=== PATIENT | female | born 1985 | race Caucasian/White ===

== ENCOUNTER → 2016-11-14 | Outpatient (CLI) | payer OTHER, BC ==
[2016-11-14 16:17] LABS: HIV ANTIBODY NEGATIVE (N); HIV-1 P24 ANTIGEN NEGATIVE (N)
== END ==
LOC: MOB LAB 14:36
PROVIDERS: ATTEND Physician Assistant Medical
DX: Z11.3 Encounter for screening for infections with a predominantly sexual mode of transmission (principal)
CPT/HCPCS: 36415; 86703; 86780; 86803; 87491; 87591

== ENCOUNTER → 2017-03-20 | Outpatient (CLI) | payer BC, OTHER ==
[2017-03-20 11:02] LABS: HEMATOCRIT 38.4 % (37.0-47.0); HEMOGLOBIN 12.7 g/dL (12.0-16.0); MEAN CORPUSCULAR VOLUME 87.7 FL (81-99); RED BLOOD COUNT 4.38 10^6/uL (4.20-5.40)
[2017-03-20 11:03] LABS: BASOPHILS % (AUTO) 1.5 % (0-1); EOSINOPHILS % (AUTO) 4.1 % (0-8); LYMPHOCYTES # (AUTO) 1.48 10*3/uL; MEAN CORPUSCULAR HGB CONC 33.1 g/dL (33-37); MEAN PLATELET VOLUME 9.7 FL (7.4-12.2); MONOCYTES # (AUTO) 0.84 10*3/UL (0.3-0.8); MONOCYTES % (AUTO) 9.8 % (5-15); NEUTROPHILS # (AUTO) 5.76 10*3/UL; NEUTROPHILS % (AUTO) 67.2 % (50-80)
[2017-03-20 11:04] LABS: BASOPHILS # (AUTO) 0.13 10*3/UL; EOSINOPHILS # (AUTO) 0.35 10*3/UL; PLATELET MORPHOLOGY COMMENT NORMAL MORPHOLOGY (NORM); RBC MORPHOLOGY COMMENT NORMAL MORPHOLOGY (NORM); WBC MORPHOLOGY COMMENT NORMAL MORPHOLOGY (NORM)
[2017-03-20 11:08] LABS: BLOOD UREA NITROGEN 9 mg/dL (7-22); BUN/CREATININE RATIO 12.85 (6-20); CALCIUM 8.8 mg/dL (8.7-10.7); EST GLOMERULAR FILTRATION > 60 (>60 ml/min/1.73m(2)); SERUM ALBUMIN 3.7 g/dL (3.5-4.8)
[2017-03-22 13:54] LABS: TTG AB IGA <1.2 U/mL (())
[2017-03-22 16:43] LABS: PARASITIC EXAM FIN 1533 (())
[2017-03-24 22:06] LABS: IGA, SERUM 279 mg/dL (61 - 356)
== END ==
LOC: MOB LAB 10:02
PROVIDERS: ATTEND Physician Assistant
DX: R19.7 Diarrhea, unspecified (principal); J02.9 Acute pharyngitis, unspecified
CPT/HCPCS: 36415; 80053; 81376; 82272; 82710; 82784; 83516; 83630; 85025; 87046; 87177; 87205; 87209; 87328; 87329; 87338; 87449; 87493

== ENCOUNTER 2017-04-07 08:04 | Day surgery (SDC) | payer BC, OTHER ==
[~2017-04-07 08:04] MED LIST: LIDOCAINE W/ SODIUM BICARB 0.5 ML SYR ONE; Lactated Ringers 1,000 ML PRIMARY IV ONE; fentaNYL Inj 100 MCG/2 ML VIAL ONE
[2017-04-07 08:34] LABS: URINE SPECIFIC GRAVITY - MAN 1.016
--- NOTE | 2017-04-07 10:12 | GEN.OPNOTE ---
Colonoscopy Procedure Note Surgery Date: 04/07/17 Preoperative Diagnosis: Diarrhea. Bright red blood per rectum. Postoperative Diagnosis: Diarrhea. Bright red blood per rectum. Anterior anal fissure. Colitis. Procedure: Colonoscopy with multiple biopsies. Anoscopy. Surgeon: Hermann Richardson MD Anesthesia Provider: Denzel Smith CRNA Anesthesia Type: MAC Indications: Patient with a 3 month history of diarrhea and bright red blood per rectum. She is taken for endoscopy. Findings: Prep : [Very good] Cecum : [Normal] Ascending : [Normal] Transverse : [Colitis with erythema and friability] Sigmoid : [Colitis with erythema and friability] Rectum : [Mild erythema and friability] Digital Rectal Exam : [Small anterior fissure] Terminal ileum:[Visually normal] Anoscopy:[Small anterior anal fissure] A lubricated flexible colonoscope was inserted and passed to the blind end of the cecum. The terminal ileum was intubated and was visually normal. Biopsies were taken. Hemostasis was assured. The scope was withdrawn into the cecum. Air was aspirated as the scope was withdrawn. The ascending colon was visually unremarkable. Multiple biopsies were taken. Hemostasis was assured. Starting at the hepatic flexure there was an obvious colitis with erythema, and induration of the mucosa, and friability. Multiple transverse colon biopsies were taken. The colitis continued down to the lower rectum. Multiple biopsies were taken in the sigmoid colon and rectum. The scope was withdrawn completing the procedure. The patient tolerated all aspects of the procedure well without complication. She was taken to outpatient surgery in stable condition. Follow-up will be with my office in 1-2 weeks to discuss the biopsies. Therapy and follow-up pending biopsy results.
[2017-04-07 11:15] VITALS: RESP 14; TEMP 97.7
== END 2017-04-07 10:50 | disposition home or self-care (01) ==
LOC: SDSC 08:04
PROVIDERS: ATTEND Surgery
DX: K62.5 Hemorrhage of anus and rectum (principal); R19.7 Diarrhea, unspecified; K60.2 Anal fissure, unspecified; K52.9 Noninfective gastroenteritis and colitis, unspecified
CPT/HCPCS: 45380; 84703; J2704; J3010; J7120

== ENCOUNTER 2017-05-01 09:58 | Inpatient (IN) ==
[2017-05-01] MEDS ORDERED: MORPHINE SULFATE 4 MG/1 ML IVP ONE (10:09)
[2017-05-01] MEDS ORDERED: Sodium Chloride 0.9% 1,000 ML PRIMARY IV ONE (10:09)
[2017-05-01] MEDS ORDERED: ONDANSETRON 4 MG/2 ML VIAL IVP ONE (10:11)
--- NOTE | 2017-05-01 10:14 | PDOC ---
Abdomen/Flank HPI - General Chief Complaint: Abdomen Pain Stated Complaint: ulceritive colitis Date Seen by Provider: 05/01/17 Time Seen by Provider: 10:14 - History of Present Illness Initial Comments: This patient is a very nice 32-year-old woman who presents to the emergency department at the prompting of her general surgeon for increasing abdominal discomfort pain nausea vomiting and hematochezia. She had been struggling for last couple years some intermittent bloody diarrhea had recently been diagnosed with ulcerative colitis after colonoscopy started also Asacol that did not manage her symptoms fully so she was started on some oral prednisone this has not helped either. She started dehydrated feels weak has increasing abdominal pain is also complaining of some rectal prolapse that is tender and painful for her. She is evaluated here in the emergency department. - Patient Home Medications Home Medications: Home Medications Zolpidem Tartrate [Ambien] 1 tab PO DAILY #30 tab 11/14/16 Ethinyl Estradiol/Drospirenone [Gianvi 3 Mg-0.02 Mg Tablet] 1 tab PO DAILY #3 packet 11/17/16 Folic Acid 1 tab PO DAILY #30 tab 04/13/17 Mesalamine [Asacol Hd] 1 tab PO TID #90 tab 04/13/17 prednisone 20 mg tablet 40 mg PO QDAY #28 tab 04/27/17 - Patient Allergies Allergies/Adverse Reactions: Allergies 3 Allergy/AdvReac Type Severity Reaction Status Date / Time No Known Allergies Allergy Verified 04/27/17 15:56 Past Medical History - heen HEENT History: Denies History Cardiovascular History: Denies History Respiratory History: Denies History Additional Gastrointestinal History: HEMORRHOIDS Genitourinary History: Denies History Endocrine History: Denies History Musculoskeletal History: Denies History Prosthesis or Implant: Yes (BILAT BREAST) Neurological History: Denies History Blood Disorders: Denies History Psychiatric History: Denies History History of Sexually Transmitted Diseases: No Cancer History: Denies History History of MDRO: No History of Other Communicable Diseases: No Alcohol Use: Occasionally In the Past 12 Months, Have Used or Abuse Any Substance: None Previous Surgical History: Yes Type / Date of Surgery: BREAST AUGMENTATION/ TONSILLECTOMY Anesthesia Reactions: No Malignant Hyperthermia: No Significant Family History: No pertinent family hx Past Medical History Reviewed: Reviewed - No Changes ROS - Limitations ROS Limitations: No Limitations Constitution: DENIES: Chills, Fever Cardiovascular: REPORTS: Denies Cardiac Symptoms Respiratory: REPORTS: Denies Resp Symptoms Abdominal/Flank Pain PE - General Appearance General Appearance: POSITIVE: Alert, Cooperative, No Acute Distress - HEENT HEENT: POSITIVE: Head Inspection Nml, Eyes Inspection Nml - Neck Neck: POSITIVE: Normal Inspection - Respiratory Respiratory: POSITIVE: No Respiratory Distress, Breath Sounds Normal, Chest Non- Tender - Cardiovascular Cardiovascular: POSITIVE: Regular Rate and Rhythm, Heart Sounds Normal - Abdomen Additional Abdominal Details: She has diffuse abdominal discomfort more so in the right upper quadrant anywhere else but some rebound and guarding tenderness throughout. Bowel sounds are slightly hyperactive. Abdomen Progress - Results Reviewed by me Xrays/CTs/US Reviewed by me: Yes Radiology Findings: Findings consistent with inflammatory bowel disorder. Lab Results Reviewed by Me: Yes CBC and BMP: 05/01/17 10:30 05/01/17 10:30 - Patient's Progress MDM / ED Course: This patient was evaluated in the emergency department found to be somewhat hypokalemic and given some IV fluids with potassium. She is also given a fluid bolus of normal saline. She is given some morphine and for pain control and some nausea medication as well. Ultimately given her inability drink effectively her continued hematochezia with inflammatory bowel disease despite use of oral Asacol and steroids I then she is to be admitted to the hospital. The case is discussed with the hospitalist who agrees to admit the patient for further management. Patient Care Time - Estimated PCT Patient Care Time (In Minutes): 35 Vital Signs - VS Reviewed Vital Signs Reviewed: Yes Discharge Clinical Impression: Inflammatory bowel disease Discharge Disposition: Admit to Inpatient Condition: Fair Follow Up With: MICKEY VICKERS [Primary Care Provider] - Date Decision to Admit to Inpatient: 05/01/17 Time Decision to Admit to Inpatient: 12:38
[2017-05-01 10:45] LABS: Hematocrit [HCT] 34.3 % (37.0-47.0); Hemoglobin [HGB] 11.1 g/dL (12.0-16.0); MEAN CORPUSCULAR HGB CONC 32.4 g/dL (33-37); MEAN CORPUSCULAR VOLUME 86.4 FL (81-99); MEAN PLATELET VOLUME 8.4 FL (7.4-12.2); RED BLOOD COUNT 3.97 10^6/uL (4.20-5.40)
[2017-05-01 10:45] LABS: BILIRUBIN,URINE SMALL (NEG); CLARITY,URINE CLEAR (CLEAR); COLOR,URINE YELLOW (Y); GLUCOSE, URINE (UA) NEGATIVE (NEG); NITRATE,URINE NEGATIVE (NEG); OCCULT BLOOD,URINE LARGE (NEG); PROTEIN,URINE 100 mg/dl (NEG); UROBILINOGEN,URINE 0.2 EU/dL (0.2)
[2017-05-01 10:52] LABS: BACTERIA,URINE RARE; RBC,URINE 0-3 /hpf; SQUAMOUS EPITHELIAL CELL,UR FEW; URINE SAMPLE TYPE CLEAN CATCH URINE; WBC,URINE 0-3; YEAST,URINE RARE
[2017-05-01 10:56] LABS: BLOOD UREA NITROGEN 15 mg/dL (7-22); BUN/CREATININE RATIO 18.75 (6-20); LIPASE 84 IU/L (23-300); SERUM ALBUMIN 3.7 g/dL (3.5-4.8)
[2017-05-01 11:11] LABS: PLATELET MORPHOLOGY COMMENT NORMAL MORPHOLOGY (NORM); RBC MORPHOLOGY COMMENT NORMAL MORPHOLOGY (NORM); WBC MORPHOLOGY COMMENT NORMAL MORPHOLOGY (NORM)
[2017-05-01 11:12] LABS: BAND NEUTROPHILS % 0 % (0-10); BASOPHILS % (MANUAL) 0 % (0-1); EOSINOPHILS % (MANUAL) 1 % (0-8); MONOCYTES % (MANUAL) 10 % (0-12); NEUTROPHILS % (MANUAL) 52 % (50-80)
[2017-05-01 11:38] LABS: Erythrocyte Sediment Rate 52 MM/HR (0-20)
--- NOTE | 2017-05-01 12:38 | CONSULT ---
Consult Note - Consult Consult Date: 05/01/17 Reason for Consult: PreOp Consulation : General Surgery Requesting Physician: Dr. Gonzalo Grubbs's Primary Care Provider: Josh Finnegan MD - History of Present Illness History of Present Illness: Patient is a 32-year-old female who I know from previous endoscopy and office visits. Problems started about 4 months ago. She had abdominal cramps and bloody diarrhea. She saw me about 3 weeks ago. She already had stool studies which were negative. We scheduled her for a colonoscopy. Colonoscopy showed her terminal ileum to be normal but she had a colitis involving her transverse colon and descending colon and high rectum. Biopsies were consistent with inflammatory bowel disease. She was started on Asacol and folic acid. She did not improve after 2 weeks. I saw her last week in the office and started her on prednisone 40 mg a day. Over the last 5 days it has not helped at all. She called complaining of worse cramps, continued bleeding and inability to eat and maintain her weight. As soon as she eats she has a bowel movement. She reports up to 20 bowel movements a day. She reports chills without fever. She' s had some nausea without vomiting. She called my office this morning. She was referred to the emergency room and I'm asked to see her in consultation. The plan is to admit her to the hospitalist service. Patient got some morphine. She is feeling better. Again she complains of abdominal cramps, chills, and nausea. She has a bowel movement soon after she eats. Her bowel movements are liquid and bloody. She has lost about [address] scan report is pending. To my eye it looks like she has a distended gallbladder. I've asked the hospitalist to get her some fatty food. It looks as though she has small bowel thickening as well. This is probably Crohn's disease and not ulcerative colitis. Stool has been sent for culture and C. difficile. Results are all pending at this time. Her white blood count is slightly elevated at 12,500. That may be secondary to the steroids. Her hemoglobin is 11 1 and her hematocrit is 34.3. Her potassium is low at 3.1 and she has IV fluid with potassium running. Past Medical History Medical History: Insomnia, inflammatory bowel disease. Surgical History: Breast augmentation, tonsillectomy and adenoidectomy, colonoscopy. 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 Medication / Allergies Home Medications: Home Medications Medication Instructions Recorded Confirmed Type Zolpidem Tartrate [Ambien] 1 tab PO DAILY #30 tab 11/14/16 05/01/17 Rx Ethinyl Estradiol/Drospirenone 1 tab PO DAILY #3 packet 11/17/16 05/01/17 Rx [Gianvi 3 Mg-0.02 Mg Tablet] Folic Acid 1 tab PO DAILY #30 tab 04/13/17 05/01/17 Clinic Mesalamine [Asacol Hd] 1 tab PO TID #90 tab 04/13/17 05/01/17 Clinic prednisone 20 mg tablet 40 mg PO QDAY #28 tab 04/27/17 05/01/17 Rx Allergies/Adverse Reactions: Allergies 3 Allergy/AdvReac Type Severity Reaction Status Date / Time No Known Allergies Allergy Verified 04/27/17 15:56 Exam - Vitals Vital Signs: Vital Signs Temperature 96.8 F Pulse Rate [Pulse Oximeter 85 Bilateral Radial] Respiratory Rate 16 Blood Pressure [Left Radial 118/81 Artery] Pulse Ox 98 Oxygen Delivery Method Room Air Height 5 ft 5 in Weight 111 lb - General General Appearance: Cooperative, Mild Distress, Thin - Respiratory Respiratory Exam: POSITIVE: Clear to Auscultation - Bilaterally, Breathing Non Labored - Cardiovascular Cardiovascular Exam: POSITIVE: RRR, Systolic Murmur - GI/Abdominal GI/Abdominal Exam: POSITIVE: Normal Bowel Sounds, Non Distended, Soft Additional GI/Abdominal Exam Details: Abdomen is soft and flat. It is diffusely tender. There are no peritoneal signs. There is voluntary guarding but no rebound. - Rectal Rectal Exam: POSITIVE: Deferred (Patient had a recent colonoscopy. Rectal exam at that time showed a small anterior fissure.) - Neurological Neurological Exam: POSITIVE: Alert, Oriented x 3 - Psychiatric Psychiatric Exam: POSITIVE: Normal Affect, Normal Mood - Integumentary Integumentary Exam: POSITIVE: Normal Color, Warm, Dry, Intact Results - Labs CBC and BMP: 05/01/17 10:30 05/01/17 10:30 - Imaging Status: Image Reviewed by Me (Official reading and report are pending. It appears she has thickened small bowel. Gallbladder is distended. More consistent with Crohn's disease than ulcerative colitis.) Assessment and Plan - Patient Problems (1) Inflammatory bowel disease Current Visit: Yes Status: Acute Priority: High Comment: We are not getting good control of her disease process with outpatient treatment. She's been on 40 mg of prednisone for the last 5 days as well as Asacol and a Folic acid for the last 2-1/2 weeks. She might be a little better but not much. She was offered hospital admission the last visit to the office but declined. At this time I think she needs to be admitted to the hospital and be given IV steroids. I have discussed her case with the hospitalist Dr. Vo. I have recommended Solu-Medrol 80 mg IV twice a day. I would start her on Flagyl 500 mg IV 3 times a day pending her stool cultures. I have asked the radiologist to call me when he reads the CT scan. I have discussed everything with the patient and her mother and her sister as well as Dr. Vo. I will plan to see the patient daily. I will be available as needed. At this time she needs medical management. All are in agreement. Code(s): K52.9 - Noninfective gastroenteritis and colitis, unspecified (2) Abdominal pain Current Visit: No Status: Acute Comment: Secondary to inflammatory bowel disease. Possibly also secondary to distention of the gallbladder. Again I did recommend a fatty meal. Otherwise she should probably be on clear liquids. Code(s): R10.9 - Unspecified abdominal pain Qualifiers: Abdominal location: generalized Qualified Code(s): R10.84 - Generalized abdominal pain
--- NOTE | 2017-05-01 12:58 | PDOC ---
HPI - History of Present Illness Chief Complaint: Bloody diarrhea History of Present Illness: Is a very nice 32-year-old female who was sent to the emergency room by general surgery with increased abdominal discomfort and bloody diarrhea 20 times a day. She started having diarrhea 2 years ago was seen a few times and was told it was hemorrhoids ultimately Dr. Richardson performed colonoscopy this because she was not feeling well sometime ago and diagnosed her with that also colitis. She was put on by mouth prednisone and Asacol still having multiple stools a day bloody with the weakness and fatigue was seen again in the ER today and will be admitted for inflammatory bowel disease exacerbation and IV steroids and Flagyl will be initiated. Hopefully this will help this patient. We'll long conversation with the family ultimately she will need a referral for GI and they prefer to go to [facility] and before discharge I will help him coordinate this if things do not resolve in the next 48 hours would also be thinking about transferring as well Past Medical History Medical History: Insomnia, inflammatory bowel disease. Surgical History: Breast augmentation, tonsillectomy and adenoidectomy, colonoscopy. Tobacco Use: Former Smoker Do you dip or chew tobacco: No In the Past 12 Months, Have Used or Abuse Any of the Following Substance: None Alcohol Use: Rarely Medication / Allergies Home Medications: Home Medications Medication Instructions Recorded Confirmed Type Zolpidem Tartrate [Ambien] 1 tab PO DAILY #30 tab 11/14/16 05/01/17 Rx Ethinyl Estradiol/Drospirenone 1 tab PO DAILY #3 packet 11/17/16 05/01/17 Rx [Gianvi 3 Mg-0.02 Mg Tablet] Folic Acid 1 tab PO DAILY #30 tab 04/13/17 05/01/17 Clinic Mesalamine [Asacol Hd] 1 tab PO TID #90 tab 04/13/17 05/01/17 Clinic prednisone 20 mg tablet 40 mg PO QDAY #28 tab 04/27/17 05/01/17 Rx Allergies/Adverse Reactions: Allergies 3 Allergy/AdvReac Type Severity Reaction Status Date / Time No Known Allergies Allergy Verified 04/27/17 15:56 Review of Systems - Review of Systems All Systems: Reviewed & No Additional Complaints Except as Stated - Cardiovascular Cardiovascular: DENIES: Negative System Review, Chest Pain, Edema, Syncope, Palpitations, Orthopnea, Paroxysmal Nocturnal Dyspnea, Other, See HPI - Gastrointestinal Gastrointestinal / Abdominal: DENIES: Negative System Review, Nausea, Vomiting, Diarrhea, Constipation, Abdominal Pain, Bloody Stool, Poor Appetite, Heartburn, Regurgitation, Bloating, Lactose Intolerance, Melena, Bright Red Blood per Rectum, Other, See HPI - Genitourinary Genitourinary: DENIES: Negative System Review, Pain, Burning, Hematuria, Incontinence, Urgency, Hesitant Stream, Decreased Stream, Nocutria, Discharge, Sexual Dysfunction, Other, See HPI Exam - Vitals Vital Signs: Vital Signs Temperature 96.8 F Pulse Rate [Pulse Oximeter 85 Bilateral Radial] Respiratory Rate 16 Blood Pressure [Left Radial 118/81 Artery] Pulse Ox 98 Oxygen Delivery Method Room Air Height 5 ft 5 in Weight 111 lb - General General Appearance: No Acute Distress, Cooperative - Head Head Exam: Normal Inspection, Normocephalic, Atraumatic - Eye Eye Exam: POSITIVE: Normal Appearance, PERRL, EOMI - Respiratory Respiratory Exam: POSITIVE: Clear to Auscultation - Bilaterally, Breathing Non Labored, Normal To Percussion - Cardiovascular Cardiovascular Exam: POSITIVE: RRR, No Murmur, No Clicks, No Gallops - GI/Abdominal GI/Abdominal Exam: POSITIVE: Non Tender, Non Distended, Soft - Extremities Extremities Exam: POSITIVE: No Clubbing Present, No Edema Present, No Cyanosis Present - Neurological Neurological Exam: POSITIVE: Alert, Oriented x 3, CN II-XII Intact, No Facial Droop - Psychiatric Psychiatric Exam: POSITIVE: Normal Affect, Normal Mood Results - Labs CBC and BMP: 05/01/17 10:30 05/01/17 10:30 Assessment and Plan - Patient Problems (1) Hypokalemia Current Visit: Yes Status: Acute Code(s): E87.6 - Hypokalemia (2) Dehydration Current Visit: Yes Status: Acute Comment: Normal saline at 125 an hour with 20 K Code(s): E86.0 - Dehydration (3) Inflammatory bowel disease Current Visit: Yes Status: Acute Priority: High Comment: Is a very nice 32 -year-old female with possible inflammatory bowel disease failed outpatient treatment with Asacol and prednisone will be admitted for IV fluids with K IV Solu-Medrol and IV Flagyl was discussed with the patient in detail. I also discussed the case with Dr. Richardson general surgery we will see the progress in the next 48 hours if not we will also think about possibly transferring to a bigger facility where GIS subspecialties available patient at this point will like to be go to [facility] if the this needed to be done. Code(s): K52.9 - Noninfective gastroenteritis and colitis, unspecified (4) Abdominal pain Current Visit: No Status: Acute Comment: Mild tenderness very nonspecific most likely secondary to the inflammatory bowel disease surgery on case Code(s ): R10.9 - Unspecified abdominal pain Qualifiers: Abdominal location: generalized Qualified Code(s): R10.84 - Generalized abdominal pain
[2017-05-01] MEDS ORDERED: LIDOCAINE W/ SODIUM BICARB 0.5 ML SYR SUBD PRN (13:11)
--- NOTE | 2017-05-01 13:11 | DI ---
CT Abdomen/Pelvis W Contrast,05/01/2017 10:10 AM: Clinical History: Hematochezia. Previous Exam: None at this facility. Findings: Multiple helically acquired CT images are obtained through the abdomen and pelvis following intraveno us administration of contrast. Lung bases are clear. The liver, gallbladder, spleen, pancreas and adrenals are unremarkable. The urinary bladder is unremarkable. There is no free air nor free fluid. Limited evaluation of the colon demonstrates what appears to be thickening throughout the entire karli th of the colon. This could simply represent peristalsis. There is no pericolonic fat stranding. The gallbladder is unremarkable. Skeletal structures are also unremarkable. There are few prominent mesenteric lymph nodes in the right lower quadrant. The skeletal structures are unremarkable. There is gentle levoscoliosis of the mid lumbar spine cente red at the L3/4 level. Impression: Question of thickening of the entire colon. This could represent a pancolitis.
[2017-05-01] MEDS: metroNIDAZOLE 500mg (Premix) 500 MG/100 ML BAG IV SCH ×2 (13:50→20:51)
[2017-05-01] MEDS: methylPREDNISolone 125 MG/2 ML VIAL IVP SCH ×2 (13:51→20:50)
[2017-05-01] MEDS: NORMAL SALINE 10 ML SYRINGE FLUSH IVP PRN (13:51)
[2017-05-01] MEDS: ETHINYL ESTRADIOL PO SCH (19:04)
[2017-05-01] MEDS: DROSPIRENONE PO SCH (19:04)
[2017-05-01] MEDS: MORPHINE SULFATE 2 MG/1 ML IVP PRN (19:44)
[2017-05-01] MEDS ORDERED: METHYLPREDNISOLONE SUCC IV SCH (21:00)
[2017-05-01] MEDS ORDERED: SODIUM CHLORIDE 0.9% IV SCH (21:00)
[2017-05-02] MEDS: MORPHINE SULFATE 2 MG/1 ML IVP PRN ×7 (00:29→23:37)
[2017-05-02] MEDS: ONDANSETRON 4 MG/2 ML VIAL IVP PRN ×4 (00:30→23:37)
[2017-05-02 04:47] LABS: BASOPHILS # (AUTO) 0.17 10*3/UL; BASOPHILS % (AUTO) 0.9 % (0-1); EOSINOPHILS # (AUTO) 0.02 10*3/UL; EOSINOPHILS % (AUTO) 0.1 % (0-8); Hematocrit [HCT] 28.3 % (37.0-47.0); LYMPHOCYTES # (AUTO) 1.13 10*3/uL; MEAN CORPUSCULAR HEMOGLOBIN 27.6 PG (27-31); MEAN CORPUSCULAR HGB CONC 31.8 g/dL (33-37); MEAN CORPUSCULAR VOLUME 86.8 FL (81-99); MEAN PLATELET VOLUME 8.7 FL (7.4-12.2); MONOCYTES # (AUTO) 0.94 10*3/UL (0.3-0.8); MONOCYTES % (AUTO) 5.2 % (5-15); NEUTROPHILS # (AUTO) 15.79 10*3/UL; NEUTROPHILS % (AUTO) 86.8 % (50-80); RED BLOOD COUNT 3.26 10^6/uL (4.20-5.40)
[2017-05-02 04:55] LABS: PLATELET MORPHOLOGY COMMENT NORMAL MORPHOLOGY (NORM); RBC MORPHOLOGY COMMENT NORMAL MORPHOLOGY (NORM); WBC MORPHOLOGY COMMENT NORMAL MORPHOLOGY (NORM)
[2017-05-02 05:00] LABS: BLOOD UREA NITROGEN 6 mg/dL (7-22); MAGNESIUM 1.8 mg/dL (1.6-2.4); SERUM ALBUMIN 2.8 g/dL (3.5-4.8)
[2017-05-02] MEDS: metroNIDAZOLE 500mg (Premix) 500 MG/100 ML BAG IV SCH ×3 (05:08→21:40)
[2017-05-02] MEDS: methylPREDNISolone 125 MG/2 ML VIAL IVP SCH ×2 (08:23→20:03)
[2017-05-02] MEDS: FOLIC ACID 1 MG TABLET PO SCH (08:24)
[2017-05-02] MEDS ORDERED: ETHINYL ESTRADIOL PO SCH (09:00)
[2017-05-02] MEDS ORDERED: DROSPIRENONE PO SCH (09:00)
[2017-05-02] MEDS ORDERED: Zolpidem Tab 5 MG TAB PO SCH (09:00)
--- NOTE | 2017-05-02 09:10 | PDOC(PROG) ---
Date and Time of Service: 05/02/2017 9 AM Interval History: Reports she didn't sleep last night. Reports she does feel a little better than when she arrived yesterday. The cramps and pain are less. She is able to lay flat. She has had multiple stools but less than before. She is still having bloody diarrhea. Objective : Data - Labs CBC and BMP: 05/02/17 04:16 05/02/17 04:16 - Vital Signs Vital Signs and I&O: Vital Signs - Last Taken Temperature 98.7 F 05/02/17 04:10 Pulse Rate 89 05/02/17 04:10 Respiratory Rate 18 05/02/17 04:10 Blood Pressure 97/52 05/02/17 04:10 Pulse Ox 94 05/02/17 04:10 Intake and Output (24hr x 4 totals) 04/30/17 05/01/17 05/02/17 05/03/17 05:59 05:59 05:59 05:59 Intake Total 3566 / 3566 Output Total 75 / 75 Balance 3491 / 3491 Objective : Exam - General General Appearance: Cooperative, Mild Distress - Respiratory Respiratory Exam: Clear to Auscultation - Bilaterally, Breathing Non Labored - Cardiovascular Cardiovascular Exam: RRR, No Murmur - GI/Abdominal GI/Abdominal Exam: Non Distended, Soft, Hypoactive Bowel Sounds Additional GI/Abdominal Exam Details: Mild but diffuse tenderness. Nonfocal. No masses. No peritoneal signs. - Neurological Neurological Exam: Oriented x 3 - Psychiatric Psychiatric Exam: Normal Affect, Normal Mood Assessment and Plan - Patient Problems (1) Inflammatory bowel disease Current Visit: Yes Status: Acute Priority: High Comment: She has improved since yesterday. Her pain and cramping is less. She is still having bloody diarrhea. She has been on the steroids for less than 24 hours. Her abdominal tenderness is less. At this time would continue present management. Continue to follow her lab work. Her hemoglobin and hematocrit have dropped as expected with hydration. Continue to monitor electrolytes. I discussed all the above with the patient. I well continue to follow with you. Code(s): K52.9 - Noninfective gastroenteritis and colitis, unspecified (2) Abdominal pain Current Visit: No Status: Acute Comment: Mild tenderness very nonspecific most likely secondary to the inflammatory bowel disease surgery on case Code(s ): R10.9 - Unspecified abdominal pain Qualifiers: Abdominal location: generalized Qualified Code(s): R10.84 - Generalized abdominal pain
[2017-05-02] MEDS ORDERED: Sodium Chloride 0.9% 1,000 ML with Multivitamin Inj 10 ML, Thiamine Inj 100 MG, Folic A... IV ONE ×5 (10:00)
--- NOTE | 2017-05-02 10:39 | PDOC(PROG) ---
Interval History: Patient is doing much better compared to yesterday her stools overnight were only 3-4 compared to the usual 10 still has cramping and some distention. Overall I would say patient is improved from previous day in regards to her electrolyte replacement and hydration as well. I had a long discussion with all family members mother dad other sisters and patient the plan is that they will help being established with her national sales executive in [place] I did put in a call to [facility] I am waiting for a call back from the national sales executive according to the national sales executive recommendation we will proceed accordingly. At present time would continue IV steroids and IV Flagyl and I also started to give her a banana bag with multivitamins. CT scan showed the pancolitis Dr. Richardson general surgeon is also aware of this and has reviewed the CAT scan. Objective : Data - Labs CBC and BMP: 05/02/17 04:16 05/02/17 04:16 Objective : Exam - General General Appearance: Cooperative - Head Head Exam: Normal Inspection, Normocephalic, Atraumatic - Respiratory Respiratory Exam: Clear to Auscultation - Bilaterally, Breathing Non Labored, Normal To Percussion - Cardiovascular Cardiovascular Exam: RRR, No Murmur, No Clicks - GI/Abdominal Additional GI/Abdominal Exam Details: Patient appears bloated a little distended pain is controlled - Extremities Extremities Exam: No Clubbing Present, No Edema Present, No Cyanosis Present Assessment and Plan - Patient Problems (1) Hypokalemia Current Visit: Yes Status: Resolved Code(s): E87.6 - Hypokalemia (2) Dehydration Current Visit: Yes Status: Resolved Comment: Normal saline at 125 an hour with 20 K Code(s): E86.0 - Dehydration (3) Inflammatory bowel disease Current Visit: Yes Status: Acute Priority: High Comment: Findings: Prep : [Very good] Cecum : [Normal] Ascending : [Normal] Transverse : [Colitis with erythema and friability] Sigmoid : [Colitis with erythema and friability] Rectum : [Mild erythema and friability] Digital Rectal Exam : [Small anterior fissure] Terminal ileum:[Visually normal] Anoscopy:[Small anterior anal fissure] these sre colonoscopy reports Code(s): K52.9 - Noninfective gastroenteritis and colitis, unspecified (4) Abdominal pain Current Visit: No Status: Acute Comment: Mild tenderness very nonspecific most likely secondary to the inflammatory bowel disease surgery on case Code(s ): R10.9 - Unspecified abdominal pain Qualifiers: Abdominal location: generalized Qualified Code(s): R10.84 - Generalized abdominal pain - Assessment / Plan Additional Assessment/Plan Details: Please see HPI discussed with the patient and family I will contact the gastroenterology in [place] as per their request we'll proceed according to her national sales executive plan the remaining here and continue current medication medical treatment and possibly follow-up as an outpatient or if the recommendation is to transfer her there also okay with this. I will write an addendum after I speak to the national sales executive which already called and waiting for a call back
[2017-05-02] MEDS: DROSPIRENONE PO SCH (11:46)
[2017-05-02] MEDS: ETHINYL ESTRADIOL PO SCH (11:46)
[2017-05-02 14:54] LABS: Hematocrit [HCT] 28.5 % (37.0-47.0); MEAN CORPUSCULAR HEMOGLOBIN 27.6 PG (27-31); MEAN CORPUSCULAR HGB CONC 31.6 g/dL (33-37); MEAN CORPUSCULAR VOLUME 87.4 FL (81-99); MEAN PLATELET VOLUME 8.5 FL (7.4-12.2); RED BLOOD COUNT 3.26 10^6/uL (4.20-5.40)
[2017-05-02 15:13] LABS: BAND NEUTROPHILS % 3 % (0-10); NEUTROPHILS % (MANUAL) 86 % (50-80); PLATELET MORPHOLOGY COMMENT NORMAL MORPHOLOGY (NORM); RBC MORPHOLOGY COMMENT NORMAL MORPHOLOGY (NORM); WBC MORPHOLOGY COMMENT NORMAL MORPHOLOGY (NORM)
[2017-05-02 15:14] LABS: BASOPHILS % (MANUAL) 0 % (0-1); EOSINOPHILS % (MANUAL) 0 % (0-8); METAMYELOCYTES % 0 %; MONOCYTES % (MANUAL) 3 % (0-12); MYELOCYTES % 0 %; PROMYELOCYTES % 0 %
[2017-05-02] MEDS: predniSONE Tab 20 MG TAB PO SCH (17:24)
[2017-05-02] MEDS ORDERED: Sodium Chloride 0.9% 1,000 ML, Magnesium Sulfate 2gm (Premix) 50 ML with Multivitamin I... IV ONE ×5 (21:18)
[2017-05-02] MEDS: Zolpidem Tab 5 MG TAB PO PRN (23:37)
[2017-05-03 03:45] LABS: Hematocrit [HCT] 29.5 % (37.0-47.0); Hemoglobin [HGB] 9.4 g/dL (12.0-16.0); MEAN CORPUSCULAR HGB CONC 31.9 g/dL (33-37); MEAN CORPUSCULAR VOLUME 87.8 FL (81-99); MEAN PLATELET VOLUME 8.8 FL (7.4-12.2); RED BLOOD COUNT 3.36 10^6/uL (4.20-5.40)
[2017-05-03 03:55] LABS: BLOOD UREA NITROGEN 5 mg/dL (7-22); BUN/CREATININE RATIO 8.33 (6-20)
[2017-05-03 04:31] LABS: PLATELET MORPHOLOGY COMMENT NORMAL MORPHOLOGY (NORM); RBC MORPHOLOGY COMMENT NORMAL MORPHOLOGY (NORM); WBC MORPHOLOGY COMMENT NORMAL MORPHOLOGY (NORM)
[2017-05-03 04:33] LABS: BAND NEUTROPHILS % 10 % (0-10); BASOPHILS % (MANUAL) 0 % (0-1); EOSINOPHILS % (MANUAL) 0 % (0-8); MONOCYTES % (MANUAL) 6 % (0-12); NEUTROPHILS % (MANUAL) 69 % (50-80)
[2017-05-03] MEDS: metroNIDAZOLE 500mg (Premix) 500 MG/100 ML BAG IV SCH ×2 (04:50→13:12)
[2017-05-03] MEDS: MORPHINE SULFATE 2 MG/1 ML IVP PRN ×5 (05:06→22:11)
[2017-05-03] MEDS ORDERED: CYANOCOBALAMIN 1000 MCG/1 ML VIAL IM ONE (08:01)
[2017-05-03] MEDS: DROSPIRENONE PO SCH (09:02)
[2017-05-03] MEDS: ETHINYL ESTRADIOL PO SCH (09:02)
[2017-05-03] MEDS: predniSONE Tab 20 MG TAB PO SCH (09:03)
[2017-05-03] MEDS: methylPREDNISolone 125 MG/2 ML VIAL IVP SCH ×2 (09:03→20:26)
[2017-05-03] MEDS: FOLIC ACID 1 MG TABLET PO SCH (09:04)
--- NOTE | 2017-05-03 10:20 | PDOC(PROG) ---
Interval History: Overall patient is improving bowel movements and on the to she did try to have some food yesterday but the had BM right away patient is 100% improved well rehydrated stop IV fluids today she wants to try to eat some full liquids again I suggested maybe a banana I did explain again inflammatory bowel disease versus to herself and her dad. No cramping no nausea no vomiting Objective : Data - Labs CBC and BMP: 05/03/17 03:11 05/03/17 03:11 Objective : Exam - General General Appearance: Cooperative - Neck Neck Exam: Normal Inspection - Respiratory Respiratory Exam: Clear to Auscultation - Bilaterally, Breathing Non Labored, Normal To Percussion - Cardiovascular Cardiovascular Exam: RRR, No Murmur, No Clicks - GI/Abdominal GI/Abdominal Exam: Normal Bowel Sounds, Non Tender, Non Distended, Soft - Extremities Extremities Exam: No Clubbing Present, No Edema Present, No Cyanosis Present Assessment and Plan - Patient Problems (1) Hypokalemia Current Visit: Yes Status: Resolved Code(s): E87.6 - Hypokalemia (2) Dehydration Current Visit: Yes Status: Resolved Code(s): E86.0 - Dehydration (3) Inflammatory bowel disease Current Visit: Yes Status: Acute Priority: High Comment: The response was really great done the 2-3 bowel movements will continue IV steroids today overlapping with prednisone 40 by mouth as recommended by general gastroenterology we will stop IV steroids tomorrow and observe patient and make sure she does not relapse. Cramping is resolved if tomorrow tolerates some food she is expecting a phone call from Gregory Quintero to set up an appointment in the next week Code(s): K52.9 - Noninfective gastroenteritis and colitis, unspecified (4) Abdominal pain Current Visit: No Status: Acute Code(s): R10.9 - Unspecified abdominal pain Qualifiers: Abdominal location: generalized Qualified Code(s): R10.84 - Generalized abdominal pain
--- NOTE | 2017-05-03 12:53 | PDOC(PROG) ---
Date and Time of Service: 05/03/2017 12:45 PM Interval History: Feels and looks much better than yesterday. Has tolerated a small amount of tomato soup. Otherwise has only had clear liquids. Bowel movements are slowing down. Still some watery blood. No formed stool. Abdominal cramping decreased. Arrangements have been made for her to see a cardiac cath lab manager in [facility] on Monday. Objective : Data - Labs CBC and BMP: 05/03/17 03:11 05/03/17 03:11 - Vital Signs Vital Signs and I&O: Vital Signs - Last Taken Temperature 98.2 F 05/03/17 08:17 Pulse Rate 76 05/03/17 08:17 Respiratory Rate 16 05/03/17 08:17 Blood Pressure 110/63 05/03/17 08:17 Pulse Ox 94 05/03/17 08:17 Intake and Output (24hr x 4 totals) 05/01/17 05/02/17 05/03/17 05/04/17 05:59 05:59 05:59 05:59 Intake Total 3566 / 3566 3858 / 3858 120 / 120 Output Total 75 / 75 935 / 935 150 / 150 Balance 3491 / 3491 2923 / 2923 -30 / -30 Objective : Exam - General General Appearance: No Acute Distress, Cooperative - Respiratory Respiratory Exam: Clear to Auscultation - Bilaterally, Breathing Non Labored - Cardiovascular Cardiovascular Exam: RRR, No Murmur - GI/Abdominal GI/Abdominal Exam: Normal Bowel Sounds, Non Distended, Soft Additional GI/Abdominal Exam Details: Minimal persistent tenderness. Much less than previously. - Neurological Neurological Exam: Alert, Oriented x 3 - Psychiatric Psychiatric Exam: Normal Affect, Normal Mood Assessment and Plan - Patient Problems (1) Inflammatory bowel disease Current Visit: Yes Status: Acute Priority: High Comment: Significant improvement. Possible discharge tomorrow. I would let her eat whatever she wants to at this point in time. I think follow-up with cardiac cath lab manager is a wonderful idea. I've asked her to have copies of his report sent to my office and I can distributed them to Dr. Finnegan. Would recommend a follow-up colonoscopy in one year. I have asked that copies of all of her records including an actual photograph from the colonoscopy be sent home with the patient so that she can take them to [facility]. I discussed the above with the patient and Dr. Vo. At this time I will sign off her case. I would be happy to see her in the office at any time. Please call if I can be of further assistance. Code(s): K52.9 - Noninfective gastroenteritis and colitis, unspecified (2) Abdominal pain Current Visit: No Status: Acute Code(s): R10.9 - Unspecified abdominal pain Qualifiers: Abdominal location: generalized Qualified Code(s): R10.84 - Generalized abdominal pain
[2017-05-03] MEDS: NORMAL SALINE 10 ML SYRINGE FLUSH IVP PRN ×2 (13:12→15:08)
[2017-05-03] MEDS: ONDANSETRON 4 MG/2 ML VIAL IVP PRN ×2 (15:08→20:38)
[2017-05-03] MEDS: Zolpidem Tab 5 MG TAB PO PRN (23:02)
[2017-05-04] MEDS: MORPHINE SULFATE 2 MG/1 ML IVP PRN ×3 (00:08→05:45)
[2017-05-04] MEDS: ONDANSETRON 4 MG/2 ML VIAL IVP PRN (03:23)
[2017-05-04 04:47] LABS: Hematocrit [HCT] 30.3 % (37.0-47.0); Hemoglobin [HGB] 9.4 g/dL (12.0-16.0); MEAN CORPUSCULAR HEMOGLOBIN 27.2 PG (27-31); MEAN CORPUSCULAR VOLUME 87.6 FL (81-99); MEAN PLATELET VOLUME 9.2 FL (7.4-12.2); RED BLOOD COUNT 3.46 10^6/uL (4.20-5.40)
[2017-05-04 04:57] LABS: BLOOD UREA NITROGEN 8 mg/dL (7-22); BUN/CREATININE RATIO 11.42 (6-20); SERUM ALBUMIN 2.9 g/dL (3.5-4.8)
[2017-05-04 05:15] LABS: PLATELET MORPHOLOGY COMMENT NORMAL MORPHOLOGY (NORM); RBC MORPHOLOGY COMMENT NORMAL MORPHOLOGY (NORM); WBC MORPHOLOGY COMMENT NORMAL MORPHOLOGY (NORM)
[2017-05-04 05:16] LABS: BAND NEUTROPHILS % 17 % (0-10); BASOPHILS % (MANUAL) 0 % (0-1); EOSINOPHILS % (MANUAL) 0 % (0-8); MONOCYTES % (MANUAL) 4 % (0-12); NEUTROPHILS % (MANUAL) 71 % (50-80)
[2017-05-04] MEDS: predniSONE Tab 20 MG TAB PO SCH (09:21)
[2017-05-04] MEDS: FOLIC ACID 1 MG TABLET PO SCH (09:22)
[2017-05-04] MEDS: ETHINYL ESTRADIOL PO SCH (09:22)
[2017-05-04] MEDS: DROSPIRENONE PO SCH (09:22)
--- NOTE | 2017-05-04 12:32 | DCSUMMARY ---
Hospitalization Summary Hospital Course: Final Discharge Diagnosis: Current Visit Problems Problem Status Onset Code Inflammatory bowel disease Acute K52.9 Hypokalemia Resolved E87.6 Dehydration Resolved E86.0 Inflammatory bowel disease Acute K52.9 Diagnostic Data, Laboratory Data, and Procedures of Signifigance: Intake and Output (24hr x 4 totals) 05/02/17 05/03/17 05/04/17 05/05/17 11:59 11:59 11:59 11:59 Intake Total 3806 / 3806 3738 / 3738 1360 / 1360 Output Total 125 / 125 1385 / 1385 1400 / 1400 Balance 3681 / 3681 2353 / 2353 -40 / -40 Weight Obtain Weight Start: 05/01/17 13: 11 Freq: ADMIT Status: Complete Protocol: Document 05/01/17 14:09 [id number] (Rec: 05/01/17 14:09 [id number]) Obtain Weight Start: 05/01/17 13: 12 Freq: QAM Status: Active Protocol: Document 05/02/17 16:55 [id number] (Rec: 05/02/17 16:55 [id number]) Document 05/03/17 07:00 [id number] (Rec: 05/03/17 15:21 [id number]) Document 05/04/17 07:00 [id number] (Rec: 05/04/17 07:58 [id number]) Laboratory Results 05/01/17 05/01/17 05/01/17 Range/Units 10:09 10:30 10:30 WBC 12.52 H (4.8-10.8) 10^3/uL RBC 3.97 L (4.20-5.40) 10^6/uL Hgb 11.1 L (12.0-16.0) g/dL Hct 34.3 L (37.0-47.0) % MCV 86.4 (81-99) FL MCH 28.0 (27-31) PG MCHC 32.4 L (33-37) g/dL RDW Std Deviation 42.1 (39-50) fL RDW Coeff of Dona 13.6 (11.5-14.5) % Plt Count 168 (140-350) 10*3/uL MPV 8.4 (7.4-12.2) FL Immature Gran % (Auto) (0-5) % Neut % (Auto) (50-80) % Lymph % (Auto) (10-50) % [place] % (Auto) (5-15) % Eos % (Auto) (0-8) % Baso % (Auto) (0-1) % Immature Gran # (Auto) 10*3/UL Neut # (Auto) 10*3/UL Lymph # (Auto) 10*3/uL [place] # (Auto) (0.3-0.8) 10*3/UL Eos # (Auto) 10*3/UL Baso # (Auto) 10*3/UL Neutrophils % (Manual) 52 (50-80) % Band Neutrophils % 0 (0-10) % Lymphocytes % (Manual) 37 (10-50) % Monocytes % (Manual) 10 (0-12) % Eosinophils % (Manual) 1 (0-8) % Basophils % (Manual) 0 (0-1) % Metamyelocytes % Not Reportable Myelocytes % Not Reportable Promyelocytes % Not Reportable Blast Cells Not Reportable WBC Morphology Comment Normal morphology (NORM) Plt Morphology Comment Normal morphology (NORM) RBC Morph Comment Normal morphology (NORM) ESR 52 H (0-20) MM/HR Sodium 138 (135-145) meq/L Potassium 3.1 L (3.8-5.2) meq/L Chloride 101 (98-112) meq/L Carbon Dioxide 25 (23-33) meq/L Anion Gap 12 (5-20) BUN 15 (7-22) mg/dL Creatinine 0.8 (0.50-1.20) mg/dL Estimated GFR > 60 (>60 ml/min/1.73m(2)) BUN/Creatinine Ratio 18.75 (6-20) Glucose 139 H (78-110) mg/dL Calculated Osmolality 288.0 (267-292) mOsm/kg Calcium 9.7 (8.7-10.7) mg/dL Magnesium (1.6-2.4) mg/dL Iron (37-170) UG/DL TIBC (265-497) ug/dL % Saturation (14-50) % Total Bilirubin 0.4 (0.3-1.2) mg/dL AST 17 (8-39) IU/L ALT 32 (9-52) IU/L Alkaline Phosphatase 137 H (38-126) IU/L C-Reactive Protein 6.6 H (0.0-0.9) mg/dL Total Protein 7.3 (6.1-8.0) g/dL Albumin 3.7 (3.5-4.8) g/dL Globulin 3.6 (2.50-4.10) g/dL Albumin/Globulin Ratio 1.00 L (1.3-2.0) mg/g Amylase 80 (30-110) U/L Lipase 84 (23-300) IU/L Vitamin B12 (239-931) pg/mL Serum HCG, Qual Ur Collection Type Clean catch urine Urine Color Yellow (Y) Urine Clarity Clear (CLEAR) Urine pH 6.0 (5.0-8.5) Ur Specific [place] 1.020 (1.005-1.030) Urine Protein 100 A (NEG) mg/dl Urine Glucose (UA) Negative (NEG) mg/dL Urine Ketones Trace A (NEG) Urine Occult Blood Large H (NEG) Urine Nitrate Negative (NEG) Urine Bilirubin Small (NEG) Urine Urobilinogen 0.2 (0.2) EU/dL Ur Leukocyte Esterase Negative (NEG) Urine RBC 0-3 (NONE) /hpf Urine WBC 0-3 (NONE) Ur Squamous Epith Cells Few (NONE) Ur Renal Epithelial Cell None (NONE) Urine Crystals None Urine Bacteria Rare (NONE) Urine Casts None (NONE) Urine Mucus Many (NONE) Urine Trichomonas None (NONE) Urine Yeast Rare H (NONE) Ur Culture Indicated? Culture not set 05/01/17 05/02/17 05/02/17 Range/Units 10:45 04:16 04:16 WBC 18.19 H (4.8-10.8) 10^3/uL RBC 3.26 L (4.20-5.40) 10^6/uL Hgb 9.0 L (12.0-16.0) g/dL Hct 28.3 L (37.0-47.0) % MCV 86.8 (81-99) FL MCH 27.6 (27-31) PG MCHC 31.8 L (33-37) g/dL RDW Std Deviation 41.8 (39-50) fL RDW Coeff of Dona 13.6 (11.5-14.5) % Plt Count 563 H (140-350) 10*3/uL MPV 8.7 (7.4-12.2) FL Immature Gran % (Auto) 0.8 (0-5) % Neut % (Auto) 86.8 H (50-80) % Lymph % (Auto) 6.2 L (10-50) % [place] % (Auto) 5.2 (5-15) % Eos % (Auto) 0.1 (0-8) % Baso % (Auto) 0.9 (0-1) % Immature Gran # (Auto) 0.14 10*3/UL Neut # (Auto) 15.79 10*3/UL Lymph # (Auto) 1.13 10*3/uL [place] # (Auto) 0.94 H (0.3-0.8) 10*3/UL Eos # (Auto) 0.02 10*3/UL Baso # (Auto) 0.17 10*3/UL Neutrophils % (Manual) (50-80) % Band Neutrophils % (0-10) % Lymphocytes % (Manual) (10-50) % Monocytes % (Manual) (0-12) % Eosinophils % (Manual) (0-8) % Basophils % (Manual) (0-1) % Metamyelocytes % Myelocytes % Promyelocytes % Blast Cells WBC Morphology Comment Normal morphology (NORM) Plt Morphology Comment Normal morphology (NORM) RBC Morph Comment Normal morphology (NORM) ESR (0-20) MM/HR Sodium (135-145) meq/L Potassium (3.8-5.2) meq/L Chloride (98-112) meq/L Carbon Dioxide (23-33) meq/L Anion Gap (5-20) BUN (7-22) mg/dL Creatinine (0.50-1.20) mg/dL Estimated GFR (>60 ml/min/1.73m(2)) BUN/Creatinine Ratio (6-20) Glucose (78-110) mg/dL Calculated Osmolality (267-292) mOsm/kg Calcium (8.7-10.7) mg/dL Magnesium (1.6-2.4) mg/dL Iron (37-170) UG/DL TIBC (265-497) ug/dL % Saturation (14-50) % Total Bilirubin (0.3-1.2) mg/dL AST (8-39) IU/L ALT (9-52) IU/L Alkaline Phosphatase (38-126) IU/L C-Reactive Protein (0.0-0.9) mg/dL Total Protein (6.1-8.0) g/dL Albumin (3.5-4.8) g/dL Globulin (2.50-4.10) g/dL Albumin/Globulin Ratio (1.3-2.0) mg/g Amylase (30-110) U/L Lipase (23-300) IU/L Vitamin B12 660 (239-931) pg/mL Serum HCG, Qual Negative Ur Collection Type Urine Color (Y) Urine Clarity (CLEAR) Urine pH (5.0-8.5) Ur Specific [place] (1.005-1.030) Urine Protein (NEG) mg/dl Urine Glucose (UA) (NEG) mg/dL Urine Ketones (NEG) Urine Occult Blood (NEG) Urine Nitrate (NEG) Urine Bilirubin (NEG) Urine Urobilinogen (0.2) EU/dL Ur Leukocyte Esterase (NEG) Urine RBC (NONE) /hpf Urine WBC (NONE) Ur Squamous Epith Cells (NONE) Ur Renal Epithelial Cell (NONE) Urine Crystals Urine Bacteria (NONE) Urine Casts (NONE) Urine Mucus (NONE) Urine Trichomonas (NONE) Urine Yeast (NONE) Ur Culture Indicated? 05/02/17 05/02/17 05/02/17 Range/Units 04:16 05:00 14:23 WBC 20.19 H (4.8-10.8) 10^3/uL RBC 3.26 L (4.20-5.40) 10^6/uL Hgb 9.0 L (12.0-16.0) g/dL Hct 28.5 L (37.0-47.0) % MCV 87.4 (81-99) FL MCH 27.6 (27-31) PG MCHC 31.6 L (33-37) g/dL RDW Std Deviation 42.3 (39-50) fL RDW Coeff of Dona 13.7 (11.5-14.5) % Plt Count 618 H (140-350) 10*3/uL MPV 8.5 (7.4-12.2) FL Immature Gran % (Auto) (0-5) % Neut % (Auto) (50-80) % Lymph % (Auto) (10-50) % [place] % (Auto) (5-15) % Eos % (Auto) (0-8) % Baso % (Auto) (0-1) % Immature Gran # (Auto) 10*3/UL Neut # (Auto) 10*3/UL Lymph # (Auto) 10*3/uL [place] # (Auto) (0.3-0.8) 10*3/UL Eos # (Auto) 10*3/UL Baso # (Auto) 10*3/UL Neutrophils % (Manual) 86 H (50-80) % Band Neutrophils % 3 (0-10) % Lymphocytes % (Manual) 8 L (10-50) % Monocytes % (Manual) 3 (0-12) % Eosinophils % (Manual) 0 (0-8) % Basophils % (Manual) 0 (0-1) % Metamyelocytes % 0 Myelocytes % 0 Promyelocytes % 0 Blast Cells 0 WBC Morphology Comment Normal morphology (NORM) Plt Morphology Comment Normal morphology (NORM) RBC Morph Comment Normal morphology (NORM) ESR (0-20) MM/HR Sodium 137 (135-145) meq/L Potassium 4.5 D (3.8-5.2) meq/L Chloride 108 (98-112) meq/L Carbon Dioxide 21 L (23-33) meq/L Anion Gap 8 (5-20) BUN 6 L (7-22) mg/dL Creatinine 0.6 (0.50-1.20) mg/dL Estimated GFR > 60 (>60 ml/min/1.73m(2)) BUN/Creatinine Ratio 10.00 (6-20) Glucose 126 H (78-110) mg/dL Calculated Osmolality 283.0 (267-292) mOsm/kg Calcium 8.4 L (8.7-10.7) mg/dL Magnesium 1.8 (1.6-2.4) mg/dL Iron < 10 L (37-170) UG/DL TIBC 289 (265-497) ug/dL % Saturation 3.24288 L (14-50) % Total Bilirubin 0.2 L (0.3-1.2) mg/dL AST 11 (8-39) IU/L ALT 32 (9-52) IU/L Alkaline Phosphatase 114 (38-126) IU/L C-Reactive Protein (0.0-0.9) mg/dL Total Protein 5.6 L (6.1-8.0) g/dL Albumin 2.8 L (3.5-4.8) g/dL Globulin 2.8 (2.50-4.10) g/dL Albumin/Globulin Ratio 1.00 L (1.3-2.0) mg/g Amylase (30-110) U/L Lipase (23-300) IU/L Vitamin B12 (239-931) pg/mL Serum HCG, Qual Ur Collection Type Urine Color (Y) Urine Clarity (CLEAR) Urine pH (5.0-8.5) Ur Specific [place] (1.005-1.030) Urine Protein (NEG) mg/dl Urine Glucose (UA) (NEG) mg/dL Urine Ketones (NEG) Urine Occult Blood (NEG) Urine Nitrate (NEG) Urine Bilirubin (NEG) Urine Urobilinogen (0.2) EU/dL Ur Leukocyte Esterase (NEG) Urine RBC (NONE) /hpf Urine WBC (NONE) Ur Squamous Epith Cells (NONE) Ur Renal Epithelial Cell (NONE) Urine Crystals Urine Bacteria (NONE) Urine Casts (NONE) Urine Mucus (NONE) Urine Trichomonas (NONE) Urine Yeast (NONE) Ur Culture Indicated? 05/03/17 05/03/17 05/04/17 Range/Units 03:11 03:11 03:35 WBC 17.42 H 12.08 H (4.8-10.8) 10^3/uL RBC 3.36 L 3.46 L (4.20-5.40) 10^6/uL Hgb 9.4 L 9.4 L (12.0-16.0) g/dL Hct 29.5 L 30.3 L (37.0-47.0) % MCV 87.8 87.6 (81-99) FL MCH 28.0 27.2 (27-31) PG MCHC 31.9 L 31.0 L (33-37) g/dL RDW Std Deviation 42.3 43.1 (39-50) fL RDW Coeff of Dona 13.8 13.9 (11.5-14.5) % Plt Count 598 H 596 H (140-350) 10*3/uL MPV 8.8 9.2 (7.4-12.2) FL Immature Gran % (Auto) (0-5) % Neut % (Auto) (50-80) % Lymph % (Auto) (10-50) % [place] % (Auto) (5-15) % Eos % (Auto) (0-8) % Baso % (Auto) (0-1) % Immature Gran # (Auto) 10*3/UL Neut # (Auto) 10*3/UL Lymph # (Auto) 10*3/uL [place] # (Auto) (0.3-0.8) 10*3/UL Eos # (Auto) 10*3/UL Baso # (Auto) 10*3/UL Neutrophils % (Manual) 69 71 (50-80) % Band Neutrophils % 10 17 H (0-10) % Lymphocytes % (Manual) 15 8 L (10-50) % Monocytes % (Manual) 6 4 (0-12) % Eosinophils % (Manual) 0 0 (0-8) % Basophils % (Manual) 0 0 (0-1) % Metamyelocytes % Not Reportable Not Reportable Myelocytes % Not Reportable Not Reportable Promyelocytes % Not Reportable Not Reportable Blast Cells Not Reportable Not Reportable WBC Morphology Comment Normal morphology Normal morphology (NORM) Plt Morphology Comment Normal morphology Normal morphology (NORM) RBC Morph Comment Normal morphology Normal morphology (NORM) ESR (0-20) MM/HR Sodium 139 (135-145) meq/L Potassium 4.3 (3.8-5.2) meq/L Chloride 105 (98-112) meq/L Carbon Dioxide 25 (23-33) meq/L Anion Gap 9 (5-20) BUN 5 L (7-22) mg/dL Creatinine 0.6 (0.50-1.20) mg/dL Estimated GFR > 60 (>60 ml/min/1.73m(2)) BUN/Creatinine Ratio 8.33 (6-20) Glucose 147 H (78-110) mg/dL Calculated Osmolality 287.0 (267-292) mOsm/kg Calcium 8.3 L (8.7-10.7) mg/dL Magnesium (1.6-2.4) mg/dL Iron (37-170) UG/DL TIBC (265-497) ug/dL % Saturation (14-50) % Total Bilirubin 0.2 L (0.3-1.2) mg/dL AST 10 (8-39) IU/L ALT 28 (9-52) IU/L Alkaline Phosphatase 114 (38-126) IU/L C-Reactive Protein (0.0-0.9) mg/dL Total Protein 6.1 (6.1-8.0) g/dL Albumin 3.0 L (3.5-4.8) g/dL Globulin 3.1 (2.50-4.10) g/dL Albumin/Globulin Ratio 0.90 L (1.3-2.0) mg/g Amylase (30-110) U/L Lipase (23-300) IU/L Vitamin B12 (239-931) pg/mL Serum HCG, Qual Ur Collection Type Urine Color (Y) Urine Clarity (CLEAR) Urine pH (5.0-8.5) Ur Specific [place] (1.005-1.030) Urine Protein (NEG) mg/dl Urine Glucose (UA) (NEG) mg/dL Urine Ketones (NEG) Urine Occult Blood (NEG) Urine Nitrate (NEG) Urine Bilirubin (NEG) Urine Urobilinogen (0.2) EU/dL Ur Leukocyte Esterase (NEG) Urine RBC (NONE) /hpf Urine WBC (NONE) Ur Squamous Epith Cells (NONE) Ur Renal Epithelial Cell (NONE) Urine Crystals Urine Bacteria (NONE) Urine Casts (NONE) Urine Mucus (NONE) Urine Trichomonas (NONE) Urine Yeast (NONE) Ur Culture Indicated? 05/04/17 Range/Units 03:35 WBC (4.8-10.8) 10^3/uL RBC (4.20-5.40) 10^6/uL Hgb (12.0-16.0) g/dL Hct (37.0-47.0) % MCV (81-99) FL MCH (27-31) PG MCHC (33-37) g/dL RDW Std Deviation (39-50) fL RDW Coeff of Dona (11.5-14.5) % Plt Count (140-350) 10*3/uL MPV (7.4-12.2) FL Immature Gran % (Auto) (0-5) % Neut % (Auto) (50-80) % Lymph % (Auto) (10-50) % [place] % (Auto) (5-15) % Eos % (Auto) (0-8) % Baso % (Auto) (0-1) % Immature Gran # (Auto) 10*3/UL Neut # (Auto) 10*3/UL Lymph # (Auto) 10*3/uL [place] # (Auto) (0.3-0.8) 10*3/UL Eos # (Auto) 10*3/UL Baso # (Auto) 10*3/UL Neutrophils % (Manual) (50-80) % Band Neutrophils % (0-10) % Lymphocytes % (Manual) (10-50) % Monocytes % (Manual) (0-12) % Eosinophils % (Manual) (0-8) % Basophils % (Manual) (0-1) % Metamyelocytes % Myelocytes % Promyelocytes % Blast Cells WBC Morphology Comment (NORM) Plt Morphology Comment (NORM) RBC Morph Comment (NORM) ESR (0-20) MM/HR Sodium 141 (135-145) meq/L Potassium 3.9 (3.8-5.2) meq/L Chloride 104 (98-112) meq/L Carbon Dioxide 26 (23-33) meq/L Anion Gap 11 (5-20) BUN 8 (7-22) mg/dL Creatinine 0.7 (0.50-1.20) mg/dL Estimated GFR > 60 (>60 ml/min/1.73m(2)) BUN/Creatinine Ratio 11.42 (6-20) Glucose 141 H (78-110) mg/dL Calculated Osmolality 291.0 (267-292) mOsm/kg Calcium 8.5 L (8.7-10.7) mg/dL Magnesium (1.6-2.4) mg/dL Iron (37-170) UG/DL TIBC (265-497) ug/dL % Saturation (14-50) % Total Bilirubin 0.2 L (0.3-1.2) mg/dL AST 9 (8-39) IU/L ALT 30 (9-52) IU/L Alkaline Phosphatase 119 (38-126) IU/L C-Reactive Protein (0.0-0.9) mg/dL Total Protein 5.9 L (6.1-8.0) g/dL Albumin 2.9 L (3.5-4.8) g/dL Globulin 3.0 (2.50-4.10) g/dL Albumin/Globulin Ratio 0.90 L (1.3-2.0) mg/g Amylase (30-110) U/L Lipase (23-300) IU/L Vitamin B12 (239-931) pg/mL Serum HCG, Qual Ur Collection Type Urine Color (Y) Urine Clarity (CLEAR) Urine pH (5.0-8.5) Ur Specific [place] (1.005-1.030) Urine Protein (NEG) mg/dl Urine Glucose (UA) (NEG) mg/dL Urine Ketones (NEG) Urine Occult Blood (NEG) Urine Nitrate (NEG) Urine Bilirubin (NEG) Urine Urobilinogen (0.2) EU/dL Ur Leukocyte Esterase (NEG) Urine RBC (NONE) /hpf Urine WBC (NONE) Ur Squamous Epith Cells (NONE) Ur Renal Epithelial Cell (NONE) Urine Crystals Urine Bacteria (NONE) Urine Casts (NONE) Urine Mucus (NONE) Urine Trichomonas (NONE) Urine Yeast (NONE) Ur Culture Indicated? History and Physical pertinent to Admission: Course of Hospitalization: This very nice 32-year-old female with the possible diagnosis of inflammatory bowel disease not sure if UC or Crohn's at this point patient did respond to IV steroids very nicely with improvement in her bowel movements from 20 to just a couple she is been ambulating around the hospital every night for 4 times at her family she has tolerated some food. She is now having regular meal she would like to be discharged home if she tolerates her food. I discussed the case with the Dr. Comer gastroenterology in [place] at [facility]. Recommended to overlap IV Solu-Medrol and 40 of prednisone for 24 hours then stop the IV Solu- Medrol and just keep her on the prednisone advance diet make sure he doesn't relapse I will offer the patient to stay even tomorrow or even total Monday until she has to go to her appointment and at this time should like to go home if she tolerates her food. Her labs have improved with decrease in white count and left shift her potassium is been replaced to banana bags of been given to her including a B12 shot she will discuss further replacement of iron and further treatment with the gastroenterology on Monday in [place] with I discussed this with nursing family members I given her a packet to read on disease state On the date of discharge, the patient was examined: Gen.: No acute distress, alert, nontoxic Heart: Regular rate and rhythm, no murmurs, clicks, gallops, or rubs Lungs: Clear to auscultation bilaterally, breathing is nonlabored Abdomen/GI: Normal tones on auscultation, soft, nontender, nondistended Musculoskeletal/extremities: No clubbing, cyanosis, or edema Vitals reviewed and are listed below Vital Signs (24 hrs) Temp Pulse Pulse Resp BP Pulse Ox 05/04/17 11:38 98.4 F 77 18 98/58 93 05/04/17 07:54 98.5 F 77 17 111/67 94 05/04/17 04:18 98.2 F 78 18 102/52 95 05/04/17 00:06 97.5 F 66 20 104/68 93 05/03/17 20:53 97.6 F 76 20 115/71 96 05/03/17 19:00 77 70 05/03/17 16:47 98 F 70 18 104/62 97 05/03/17 13:00 97.8 F 68 18 101/56 95 Assessment and Plan: 1. As per discharge assessments above 2. Disposition: Home 3. Condition on discharge, stable and improved. 4. Diet: regular diet 5. Activities: resume normal activities 6. Follow-Up: 1. PCP 2. Gastric nephrology in [place] appointment has been made the office has contacted them and arrange that 7. Medications at the Time of Discharge: Home Medications Medication Instructions Recorded Confirmed Type Zolpidem Tartrate [Ambien] 1 tab PO DAILY #30 tab 11/14/16 05/01/17 Rx Ethinyl Estradiol/Drospirenone 1 tab PO DAILY #3 packet 11/17/16 05/01/17 Rx [Gianvi 3 Mg-0.02 Mg Tablet] Folic Acid 1 tab PO DAILY #30 tab 04/13/17 05/01/17 Clinic Mesalamine [Asacol Hd] 1 tab PO TID #90 tab 04/13/17 05/01/17 Clinic prednisone 20 mg tablet 40 mg PO QDAY #28 tab 04/27/17 05/01/17 Rx 3 Generic Name Dose Route Start Last Admin Trade Name Freq PRN Reason Stop Dose Admin Folic Acid 1 mg 05/02/17 09:00 05/04/17 09:22 Folic Acid PO 1 mg DAILY DEL Administration Sodium Chloride 25 mls @ 200 mls/hr 05/01/17 13:11 05/03/17 13:13 Normal Saline 0.9% IV 200 mls/hr .Post Infusion PRN Administration Flush Lidocaine HCl 0.5 ml 05/01/17 13:11 Lidocaine Buffered Inj SUBD ONCE PRN IV Starts Non-Formulary Medication 1 tab 05/01/17 18:45 05/04/17 09:22 Ethinyl Estradiol/Drospirenone [Gianvi 3 Mg-0.02 Mg Tablet] PO 1 tab DAILY DEL Administration Ondansetron HCl 4 mg 05/02/17 00:41 05/04/17 03:23 Zofran Inj IVP 4 mg Q6H PRN Administration NAUSEA / VOMITING Prednisone 40 mg 05/02/17 09:00 05/04/17 09:21 Deltasone Tab PO 40 mg DAILY DEL Administration Sodium Chloride 5 - 20 ml 05/01/17 13:11 05/03/17 15:08 Saline Flush IVP 10 ml BID PRN Administration Flush Zolpidem Tartrate 5 mg 05/01/17 13:11 05/03/17 23:02 Ambien PO 5 mg BEDTIME PRN Administration Insomnia 8. Time, care, counseling and coordination of care for this discharge is greater than 30 minutes. Microbiology 05/01/17 10:13 Stool WBC Smear - Final 05/01/17 10:33 Stool Clostridium difficile (PCR) - Final negative Exam - Vitals Vital Signs: Vital Signs Temperature 98.4 F Temperature Source Temporal Artery Scan Pulse Rate [Pulse Oximeter] 77 Pulse Rate [Pulse Oximeter 77 Bilateral Radial] Pulse Rate 87 Respiratory Rate 18 Blood Pressure [Right Arm] 98/58 Blood Pressure 118/78 Pulse Ox 93 Oxygen Delivery Method Room Air Height 5 ft 5 in Weight 119 lb 6.4 oz Patient Problems - Patient Problem List (1) Hypokalemia Current Visit: Yes Status: Resolved Code(s): E87.6 - Hypokalemia Category : Medical (2) Dehydration Current Visit: Yes Status: Resolved Comment: Normal saline at 125 an hour with 20 K Code(s): E86.0 - Dehydration Category: Medical (3) Inflammatory bowel disease Current Visit: Yes Status: Acute Priority: High Comment: Findings: Prep : [Very good] Cecum : [Normal] Ascending : [Normal] Transverse : [Colitis with erythema and friability] Sigmoid : [Colitis with erythema and friability] Rectum : [Mild erythema and friability] Digital Rectal Exam : [Small anterior fissure] Terminal ileum:[Visually normal] Anoscopy:[Small anterior anal fissure] these sre colonoscopy reports Code(s): K52.9 - Noninfective gastroenteritis and colitis, unspecified Category: Medical (4) Abdominal pain Current Visit: No Status: Acute Comment: Mild tenderness very nonspecific most likely secondary to the inflammatory bowel disease surgery on case Code(s ): R10.9 - Unspecified abdominal pain Qualifiers: Abdominal location: generalized Qualified Code(s): R10.84 - Generalized abdominal pain Category: Medical
[2017-05-04] MEDS ORDERED: MORPHINE SULFATE 2 MG/1 ML IVP PRN (16:43)
[2017-05-04] MEDS: oxyCODONE-ACETAMINOPHEN 5-325 TAB PO PRN ×2 (19:36→23:53)
[2017-05-04] MEDS: Zolpidem Tab 5 MG TAB PO PRN (23:54)
[2017-05-05 04:49] LABS: Hematocrit [HCT] 28.4 % (37.0-47.0); Hemoglobin [HGB] 8.7 g/dL (12.0-16.0); MEAN CORPUSCULAR HEMOGLOBIN 26.9 PG (27-31); MEAN CORPUSCULAR HGB CONC 30.6 g/dL (33-37); MEAN CORPUSCULAR VOLUME 87.9 FL (81-99); MEAN PLATELET VOLUME 8.6 FL (7.4-12.2); RED BLOOD COUNT 3.23 10^6/uL (4.20-5.40)
[2017-05-05 05:42] LABS: PLATELET MORPHOLOGY COMMENT NORMAL MORPHOLOGY (NORM); RBC MORPHOLOGY COMMENT NORMAL MORPHOLOGY (NORM); WBC MORPHOLOGY COMMENT NORMAL MORPHOLOGY (NORM)
[2017-05-05 05:43] LABS: BAND NEUTROPHILS % 16 % (0-10); BASOPHILS % (MANUAL) 0 % (0-1); EOSINOPHILS % (MANUAL) 0 % (0-8); MONOCYTES % (MANUAL) 3 % (0-12); NEUTROPHILS % (MANUAL) 66 % (50-80)
[2017-05-05] MEDS: oxyCODONE-ACETAMINOPHEN 5-325 TAB PO PRN (05:45)
[2017-05-05] MEDS: FOLIC ACID 1 MG TABLET PO SCH (08:12)
[2017-05-05] MEDS: DROSPIRENONE PO SCH (08:12)
[2017-05-05] MEDS: ETHINYL ESTRADIOL PO SCH (08:12)
[2017-05-05] MEDS: predniSONE Tab 20 MG TAB PO SCH (08:12)
[2017-05-05 08:25] VITALS: BP 104/62; RESP 16; TEMP 97.8; O2SAT 96
[2017-05-05] MEDS ORDERED: PANTOPRAZOLE 40 MG TABLET PO ONE (09:16)
[2017-05-05] MEDS ORDERED: predniSONE Tab 20 MG TAB PO ONE (09:17)
== END 2017-05-05 10:06 | disposition home or self-care (01) | DRG 392 ==
LOC: ER 09:58 → MED/SURG 13:00
PROVIDERS: ADMIT Internal Medicine; ATTEND Internal Medicine

== ENCOUNTER 2017-05-12 00:35 | Inpatient (IN) ==
[2017-05-12] MEDS ORDERED: Sodium Chloride 0.9% 1,000 ML PRIMARY IV ONE ×2 (00:46→08:07)
[2017-05-12] MEDS ORDERED: LORazepam 2 MG/1 ML VIAL IVP ONE ×2 (00:46→08:03)
[2017-05-12] MEDS ORDERED: ONDANSETRON 4 MG/2 ML VIAL IVP ONE (00:46)
--- NOTE | 2017-05-12 00:52 | PDOC ---
Abdomen/Flank HPI - General Chief Complaint: General Medical Stated Complaint: POSSIBLE CROHN'S FLARE UP Date Seen by Provider: 05/12/17 Time Seen by Provider: 00:48 Source: POSITIVE: Patient Exam Limitations: POSITIVE: No limitations Nurse's Notes Reviewed & Considered: Yes - History of Present Illness Initial Comments: This is a pleasant 32-year-old female who comes in today with chief complaint of abdominal pain. Patient was admitted last week for abdominal pain and found to have Crohn's disease. She's had a follow-up appointment with specialist in [place], and is scheduled to start Crohn's therapy in a week. Yesterday she began to develop increasing abdominal pain which awoke her tonight with significant increase in pain in her left upper quadrant. She rated her pain as a 10 out of 10. She denies any hematochezia or blood in her stool. She does have nausea but no vomiting, denies shortness of breath, chest pain or cough. Body Location Affected: REPORTS: Abdomen Timing: REPORTS: Abrupt Duration: 1 hour Severity: Severe Quality: REPORTS: Cramping, "Pain", Stabbing Abdominal Pain Onset Location: REPORTS: LUQ Abdominal Pain Radiation: REPORTS: Other (Generalized abdominal radiation.) Context: REPORTS: Sleep Modifying Factors: improves with: Nothing Associated Symptoms: REPORTS: Nausea Similar Symptoms Previously: Yes Recent Care Received: REPORTS: Recently Seen, Treated by MD, Hospitalized Any Prior Injuries Related to Current Complaint?: No - Patient Home Medications Home Medications: Home Medications Ethinyl Estradiol/Drospirenone [Gianvi 3 mg-0.02 mg Tablet] 1 tab PO DAILY #3 packet 11/17/16 Folic Acid 1 tab PO DAILY #30 tab 04/13/17 predniSONE Tab [Deltasone Tab] 40 mg PO DAILY tab 05/04/17 Ferrous Gluconate 325 mg PO DAILY #30 tab 05/05/17 Pantoprazole Sodium [Protonix] 40 mg PO QD #20 tab 05/05/17 Prednisone 60 mg PO QDAY #30 tab 05/05/17 oxyCODONE/APAP 5/325 Tab [Percocet 5/325 Tab] 1 tab PO Q4H PRN #24 tab zolpidem 5 mg tablet 5 mg PO DAILY #30 tab 05/10/17 - Patient Allergies Allergies/Adverse Reactions: Allergies 3 Allergy/AdvReac Type Severity Reaction Status Date / Time No Known Allergies Allergy Verified 05/12/17 00:38 Past Medical History - heen HEENT History: Denies History Cardiovascular History: Denies History Respiratory History: Denies History Gastrointestinal History: Other (please comment) Additional Gastrointestinal History: HEMORRHOIDS Genitourinary History: Denies History Endocrine History: Denies History Musculoskeletal History: Denies History Prosthesis or Implant: Yes (BILAT BREAST) Neurological History: Denies History Blood Disorders: Denies History Psychiatric History: Denies History History of Sexually Transmitted Diseases: No Female Reproductive History: Denies History Obstetrical History: Denies History Cancer History: Denies History In Past Year Been Physically Harmed or Verbally Threatened: No History of MDRO: No History of Other Communicable Diseases: No Tobacco Use: Never Smoker Alcohol Use: Occasionally In the Past 12 Months, Have Used or Abuse Any Substance: None Previous Surgical History: Yes Type / Date of Surgery: BREAST AUGMENTATION/ TONSILLECTOMY Anesthesia Reactions: No Malignant Hyperthermia: No Significant Family History: No pertinent family hx ROS - Limitations ROS Limitations: No Limitations Constitution: REPORTS: Denies Symptoms Cardiovascular: REPORTS: Denies Cardiac Symptoms Respiratory: REPORTS: Denies Resp Symptoms Neurological: REPORTS: Denies Neuro Symptoms Gastrointestinal: REPORTS: Abdominal Pain, Nausea Endocrine: REPORTS: Denies Symptoms Musculoskeletal: REPORTS: Denies MS Symptoms Genitourinary: REPORTS: Denies Symptoms Eyes: REPORTS: Denies Symptoms ENT: REPORTS: Denies Symptoms Skin: REPORTS: Denies Skin Symptoms Lympathic: REPORTS: Denies Lympathic Symptoms Immunologic: POSITIVE: Denies Symptoms Psychiatric: POSITIVE: Anxiety Abdominal/Flank Pain PE - General Appearance General Appearance: POSITIVE: Alert, Cooperative, No Evidence of Trauma, Moderate Distress - HEENT HEENT: POSITIVE: Head Inspection Nml, Eyes Inspection Nml, Ears Inspection Nml, Nose Inspection Nml, Oral/Dental Inspect. Nml, Pharynx Inspect. Nml, PERRL, EOMI - Neck Neck: POSITIVE: Normal Inspection, No Apparent Injury - Respiratory Respiratory: POSITIVE: No Respiratory Distress, Breath Sounds Normal, Chest Non- Tender - Cardiovascular Cardiovascular: POSITIVE: Regular Rate and Rhythm, Heart Sounds Normal, Strong Pulses Peripheral Pulses: Radial (L): 4+ - Chest Chest: POSITIVE: Non Tender - Abdomen Abdomen: Tenderness Noted: (All Quadrants), Hypoactive Bowel Sounds: (All Quadrants), Distention: (All Quadrants), Guarding: (All Quadrants) - Back Back: POSITIVE: Normal Inspection - Skin Skin: POSITIVE: Intact, Normal For Race, Warm, Dry, No Rash - Extremities Extremity: Non-Tender: (All Extremities), Normal ROM: (All Extremities), Normal Inspection: (All Extremities), Pelvis Stable: (All Extremities) Abdomen Progress - Results Reviewed by me Xrays/CTs/US Reviewed by me: Yes Discussed with Radiologist: Yes Lab Results Reviewed by Me: Yes CBC and BMP: 05/12/17 00:46 05/12/17 01:47 - Patient's Progress Pain Medication Addressed: POSITIVE: Yes Re-examine Time: 03:24 Status: POSITIVE: Improved MDM / ED Course: Patient was evaluated, an IV started, blood drawn and sent to the lab for studies, radiographic examinations were obtained. Findings: CBC shows white count of 13, with a hemoglobin of 9 and a hematocrit of 21. Comprehensive metabolic panel is unremarkable. CRP is elevated, CT scan of her abdomen shows colitis versus ileitis and ileus versus obstruction. Assessment: Crohn's flare with colitis and probable ileus. Plan: Patient was offered transfer to [facility] in [place] but refused. An attempt was made to transfer to [facility] [place] [place] in [facility] but they are on divert at this time. Patient is being admitted here to [facility] for pain control and IV steroids as well as IV antibiotics. I feel that her case is significantly complicated and she would benefit from having GI doctor and infectious disease doctor available in her treatment but I am unable to make those arrangements at this time. I have contacted Dr. Johnson's, the on- call hospitalist, who will be admitting this patient here in the hospital. I also contacted Dr. Andres, the on-call surgeon for consultation. Patient Care Time - Estimated PCT Patient Care Time (In Minutes): 60 Vital Signs - Recent Vital Signs Vital Signs: Vital Signs (Last 8 hours) Temp Pulse Resp BP Pulse Ox 05/12/17 00:35 99.0 F 99 20 110/76 96 - VS Reviewed Vital Signs Reviewed: Yes Discharge Clinical Impression: Crohns disease, Ileus, Anemia Discharge Disposition: Admit to Inpatient Condition: Stable Follow Up With: MICKEY VICKERS [Primary Care Provider] - Date Decision to Admit to Inpatient: 05/12/17 Time Decision to Admit to Inpatient: 03:29
[2017-05-12] MEDS: HYDROmorphone 2 MG/1 ML IVP ONE ×2 (01:15→05:12)
[2017-05-12 01:39] LABS: BASOPHILS # (AUTO) 0.02 10*3/UL; BASOPHILS % (AUTO) 0.2 % (0-1); EOSINOPHILS # (AUTO) 0.02 10*3/UL; EOSINOPHILS % (AUTO) 0.2 % (0-8); Hematocrit [HCT] 28.1 % (37.0-47.0); Hemoglobin [HGB] 8.9 g/dL (12.0-16.0); LYMPHOCYTES # (AUTO) 2.38 10*3/uL; MEAN CORPUSCULAR HEMOGLOBIN 27.6 PG (27-31); MEAN CORPUSCULAR HGB CONC 31.7 g/dL (33-37); MEAN PLATELET VOLUME 7.5 FL (7.4-12.2); MONOCYTES # (AUTO) 1.26 10*3/UL (0.3-0.8); MONOCYTES % (AUTO) 10.4 % (5-15); NEUTROPHILS # (AUTO) 8.38 10*3/UL; NEUTROPHILS % (AUTO) 69.1 % (50-80); RED BLOOD COUNT 3.23 10^6/uL (4.20-5.40)
[2017-05-12 01:43] LABS: PLATELET MORPHOLOGY COMMENT NORMAL MORPHOLOGY (NORM); RBC MORPHOLOGY COMMENT NORMAL MORPHOLOGY (NORM); WBC MORPHOLOGY COMMENT NORMAL MORPHOLOGY (NORM)
[2017-05-12 01:49] LABS: BLOOD UREA NITROGEN 12 mg/dL (7-22); SERUM ALBUMIN 2.8 g/dL (3.5-4.8)
[2017-05-12] MEDS ORDERED: HYDROmorphone 2 MG/1 ML IVP ONE ×2 (02:22→03:42)
--- NOTE | 2017-05-12 02:52 | DI ---
EXAM: CT Abdomen and Pelvis Without Intravenous Contrast CLINICAL HISTORY: Physician Notes: Tech Comments: TECHNIQUE: Axial computed tomography images of the abdomen and pelvis without intravenous contrast. COMPARISON: 05/01/2017 FINDINGS: Lower thorax: Bilateral breast implants. Trace bilateral pleural fluid. Partially imaged geographic lucency at the left lung, question focal air trapping. ABDOMEN: Liver: Unremarkable. Gallbladder and bile ducts: Unremarkable. No calcified stones. No ductal dilation. Pancreas: Unremarkable. No ductal dilation. Spleen: Unremarkable. No splenomegaly. Adrenals: Unremarkable. No mass. Kidneys and ureters: Unremarkable. No obstructing stones. No hydronephrosis. Stomach and bowel: There is wall thickening and prominence of the distal sigmoid colon, extending into the left and transverse colon. More upstream colon is moderately dilated and distended with stool and gas. Appendix: No findings to suggest acute appendicitis. PELVIS: Bladder: Unremarkable. No stones. Reproductive: Unremarkable as visualized. ABDOMEN and PELVIS: Intraperitoneal space: Small amount of free fluid. No free air. Bones/joints: Mild bilateral sacroiliitis. No acute fracture. No dislocation. Soft tissues: Unremarkable. Vasculature: Unremarkable. No abdominal aortic aneurysm. Lymph nodes: Unremarkable. No enlarged lymph nodes. Other findings: IMPRESSION: There is wall thickening and prominence of the distal sigmoid colon, extending into the left and transverse colon. More upstream colon is moderately dilated and distended with stool and gas. Question enteritis/colitis, with evidence of upstream obstruction/ileus. Correlate with history of inflammatory bowel disease.
[2017-05-12] MEDS ORDERED: metroNIDAZOLE Tab 500 MG TAB PO ONE (02:54)
[2017-05-12] MEDS ORDERED: CIPROFLOXACIN IV ONE (02:54)
[2017-05-12] MEDS ORDERED: metroNIDAZOLE 500mg (Premix) 500 MG/100 ML BAG IV ONE ×2 (03:04→03:08)
[2017-05-12] MEDS ORDERED: Levofloxacin (Premix) 500 MG/100 ML BAG IV ONE ×2 (03:23→03:24)
[2017-05-12] MEDS ORDERED: NORMAL SALINE 10 ML SYRINGE FLUSH IVP PRN (04:44)
[2017-05-12] MEDS ORDERED: LIDOCAINE W/ SODIUM BICARB 0.5 ML SYR SUBD PRN (04:44)
[2017-05-12] MEDS ORDERED: ONDANSETRON 4 MG/2 ML VIAL IVP PRN ×2 (04:44→05:24)
[2017-05-12] MEDS ORDERED: Acetaminophen 1000mg Inj 1,000 MG/100 ML VIAL IV PRN (05:27)
[2017-05-12] MEDS ORDERED: Sodium Chloride 0.9% 1,000 ML PRIMARY IV SCH (05:30)
[2017-05-12] MEDS: HYDROmorphone 2 MG/1 ML IVP PRN ×3 (05:30→07:38)
[2017-05-12 07:13] VITALS: BP 99/65; RESP 18; TEMP 97.6; O2SAT 87
[2017-05-12] MEDS ORDERED: KETOROLAC 15 MG/1 ML VIAL IVP ONE (08:04)
[2017-05-12 08:55] LABS: Hematocrit [HCT] 26.9 % (37.0-47.0); Hemoglobin [HGB] 8.3 g/dL (12.0-16.0); MEAN CORPUSCULAR HEMOGLOBIN 27.1 PG (27-31); MEAN CORPUSCULAR HGB CONC 30.9 g/dL (33-37); MEAN CORPUSCULAR VOLUME 87.9 FL (81-99); MEAN PLATELET VOLUME 7.7 FL (7.4-12.2); RED BLOOD COUNT 3.06 10^6/uL (4.20-5.40)
[2017-05-12] MEDS ORDERED: Levofloxacin (Premix) 750 MG/150 ML PIGGYBACK IV SCH (09:00)
[2017-05-12] MEDS ORDERED: methylPREDNISolone 40 MG/1 ML VIAL IVP SCH (09:00)
[2017-05-12] MEDS ORDERED: Levofloxacin 750 MG / 30 ML VIAL IV SCH (09:00)
[2017-05-12 09:09] LABS: BLOOD UREA NITROGEN 13 mg/dL (7-22); SERUM ALBUMIN 2.6 g/dL (3.5-4.8)
[2017-05-12 09:20] LABS: BASOPHILS # (AUTO) 0.02 10*3/UL; BASOPHILS % (AUTO) 0.2 % (0-1); EOSINOPHILS # (AUTO) 0 10*3/UL; EOSINOPHILS % (AUTO) 0 % (0-8); Hematocrit [HCT] 26.8 % (37.0-47.0); Hemoglobin [HGB] 8.3 g/dL (12.0-16.0); LYMPHOCYTES # (AUTO) 0.51 10*3/uL; MEAN CORPUSCULAR HEMOGLOBIN 27.3 PG (27-31); MEAN CORPUSCULAR VOLUME 88.2 FL (81-99); MEAN PLATELET VOLUME 8.3 FL (7.4-12.2); MONOCYTES % (AUTO) 4.2 % (5-15); NEUTROPHILS # (AUTO) 10.93 10*3/UL; NEUTROPHILS % (AUTO) 90.9 % (50-80); RED BLOOD COUNT 3.04 10^6/uL (4.20-5.40)
[2017-05-12 09:49] LABS: PLATELET MORPHOLOGY COMMENT NORMAL MORPHOLOGY (NORM); RBC MORPHOLOGY COMMENT NORMAL MORPHOLOGY (NORM); WBC MORPHOLOGY COMMENT NORMAL MORPHOLOGY (NORM)
--- NOTE | 2017-05-12 10:20 | PDOC ---
HPI - History of Present Illness History of Present Illness: This very nice 32-year-old female with the presumptive diagnosis of inflammatory bowel disease. Was admitted last week with the abdominal discomfort and bloody diarrhea 20 bowel movements a day. She started having diarrhea 2 years ago was seen in urgent cares a few times and was told it was hemorrhoids alt when she saw Dr. Richardson general surgery last summer which performed a colonoscopy and she was started on Asacol at that time and by mouth prednisone was admitted started on IV steroids and Yohana patient improved with this regimen tolerating a regular diet and bowel movements down to 1 or 2 a day it was recommended she needed to see gastroenterology at that time they preferred to go to [place] and they were seen by GI group in [place] on the since she looked pretty well. Going to start treatment the next week but the comes back to the ER at the around 3:30 in the morning with the crampy abdominal pain but no diarrhea there was question of possible ileus from CT scan reports and the at that time they did not want to be transferred to [place] but the one in to go to [place] since they already spoke with the Dr. [place]' s secretary of state and he was going to see her on May 16 and also they were not happy with the care they received in in an outpatient setting in [place]. [facility] was on red divert. I did speak to [facility] this morning they were stolen by [facility] but the kindly accepted the this very nice patient I did speak with GI specialist and the hospitalist which accepted the patient in transfer. I did talk to the family and all in agreement for transfer via ambulance to [place]. I have included colonoscopy reports and pathology reports down below and in the packet as well. These to radiology reports were inserted for better communication and as requested by the accepting provider from other admissions. She did receive 10 mg of DEXA in the ER also received 80 mg of IV Solu-Medrol and Levaquin 500 mg and Yohana also is on 125 normal saline with 20 of K and received 1 L bolus of normal saline. Overall patient is definitely looking better at this point than when she first came in or even 3 hours ago she is awake alert oriented speaking in full sentences she does not complain of pain at this time she also had some urine output as well and she also had a liquid bowel movement. I've also discussed the case with Dr. peyton Santamaria general surgery who I did consult which reviewed the CAT scan and the he also recommended patient be transferred to higher care level facility where they are able to treat for possible inflammatory bowel disease. Vital Signs (24 hrs) Temp Pulse Pulse Resp BP Pulse Ox 05/12/17 07:07 97.6 F 86 18 99/65 87 05/12/17 07:00 95 05/12/17 06:59 100 05/12/17 05:00 98.2 F 98 16 113/61 1 05/12/17 01:00 99.0 F 99 20 110/76 96 05/12/17 00:35 99.0 F 99 20 110/76 96 Laboratory Results 05/12/17 05/12/17 05/12/17 Range/Units 00:46 01:47 01:47 WBC 12.11 H (4.8-10.8) 10^3/uL RBC 3.23 L (4.20-5.40) 10^6/uL Hgb 8.9 L (12.0-16.0) g/dL Hct 28.1 L (37.0-47.0) % MCV 87.0 (81-99) FL MCH 27.6 (27-31) PG MCHC 31.7 L (33-37) g/dL RDW Std Deviation 44.3 (39-50) fL RDW Coeff of Dona 14.4 (11.5-14.5) % Plt Count 653 H (140-350) 10*3/uL MPV 7.5 (7.4-12.2) FL Immature Gran % (Auto) 0.4 (0-5) % Neut % (Auto) 69.1 (50-80) % Lymph % (Auto) 19.7 (10-50) % [place] % (Auto) 10.4 (5-15) % Eos % (Auto) 0.2 (0-8) % Baso % (Auto) 0.2 (0-1) % Immature Gran # (Auto) 0.05 10*3/UL Neut # (Auto) 8.38 10*3/UL Lymph # (Auto) 2.38 10*3/uL Essex # (Auto) 1.26 H (0.3-0.8) 10*3/UL Eos # (Auto) 0.02 10*3/UL Baso # (Auto) 0.02 10*3/UL WBC Morphology Comment Normal morphology (NORM) Plt Morphology Comment Normal morphology (NORM) RBC Morph Comment Normal morphology (NORM) Sodium 135 (135-145) meq/L Potassium 3.3 L (3.8-5.2) meq/L Chloride 98 (98-112) meq/L Carbon Dioxide 30 (23-33) meq/L Anion Gap 7 (5-20) BUN 12 (7-22) mg/dL Creatinine 0.6 (0.50-1.20) mg/dL Estimated GFR > 60 (>60 ml/min/1.73m(2)) BUN/Creatinine Ratio 20.00 (6-20) Glucose 89 (78-110) mg/dL Calculated Osmolality 278.0 (267-292) mOsm/kg Lactic Acid (0.70-2.10) MMOL/L Calcium 8.5 L (8.7-10.7) mg/dL Magnesium 2.0 (1.6-2.4) mg/dL Total Bilirubin 0.4 (0.3-1.2) mg/dL AST 11 (8-39) IU/L ALT 36 (9-52) IU/L Alkaline Phosphatase 102 (38-126) IU/L C-Reactive Protein 13.8 H (0.0-0.9) mg/dL Total Protein 5.8 L (6.1-8.0) g/dL Albumin 2.8 L (3.5-4.8) g/dL Globulin 3.0 (2.50-4.10) g/dL Albumin/Globulin Ratio 0.90 L (1.3-2.0) mg/g Serum HCG, Qual Negative 05/12/17 05/12/17 05/12/17 Range/Units 03:42 08:15 08:51 WBC 12.02 H 11.99 H (4.8-10.8) 10^3/uL RBC 3.04 L 3.06 L (4.20-5.40) 10^6/uL Hgb 8.3 L 8.3 L (12.0-16.0) g/dL Hct 26.8 L 26.9 L (37.0-47.0) % MCV 88.2 87.9 (81-99) FL MCH 27.3 27.1 (27-31) PG MCHC 31.0 L 30.9 L (33-37) g/dL RDW Std Deviation 44.8 44.4 (39-50) fL RDW Coeff of Dona 14.4 14.3 (11.5-14.5) % Plt Count 586 H 601 H (140-350) 10*3/uL MPV 8.3 7.7 (7.4-12.2) FL Immature Gran % (Auto) 0.5 (0-5) % Neut % (Auto) 90.9 H (50-80) % Lymph % (Auto) 4.2 L (10-50) % Essex % (Auto) 4.2 L (5-15) % Eos % (Auto) 0 (0-8) % Baso % (Auto) 0.2 (0-1) % Immature Gran # (Auto) 0.06 10*3/UL Neut # (Auto) 10.93 10*3/UL Lymph # (Auto) 0.51 10*3/uL Essex # (Auto) 0.50 (0.3-0.8) 10*3/UL Eos # (Auto) 0 10*3/UL Baso # (Auto) 0.02 10*3/UL WBC Morphology Comment Normal morphology (NORM) Plt Morphology Comment Normal morphology (NORM) RBC Morph Comment Normal morphology (NORM) Sodium (135-145) meq/L Potassium (3.8-5.2) meq/L Chloride (98-112) meq/L Carbon Dioxide (23-33) meq/L Anion Gap (5-20) BUN (7-22) mg/dL Creatinine (0.50-1.20) mg/dL Estimated GFR (>60 ml/min/1.73m(2)) BUN/Creatinine Ratio (6-20) Glucose (78-110) mg/dL Calculated Osmolality (267-292) mOsm/kg Lactic Acid 0.7 (0.70-2.10) MMOL/L Calcium (8.7-10.7) mg/dL Magnesium (1.6-2.4) mg/dL Total Bilirubin (0.3-1.2) mg/dL AST (8-39) IU/L ALT (9-52) IU/L Alkaline Phosphatase (38-126) IU/L C-Reactive Protein (0.0-0.9) mg/dL Total Protein (6.1-8.0) g/dL Albumin (3.5-4.8) g/dL Globulin (2.50-4.10) g/dL Albumin/Globulin Ratio (1.3-2.0) mg/g Serum HCG, Qual 05/12/17 Range/Units 08:51 WBC (4.8-10.8) 10^3/uL RBC (4.20-5.40) 10^6/uL Hgb (12.0-16.0) g/dL Hct (37.0-47.0) % MCV (81-99) FL MCH (27-31) PG MCHC (33-37) g/dL RDW Std Deviation (39-50) fL RDW Coeff of Dona (11.5-14.5) % Plt Count (140-350) 10*3/uL MPV (7.4-12.2) FL Immature Gran % (Auto) (0-5) % Neut % (Auto) (50-80) % Lymph % (Auto) (10-50) % Essex % (Auto) (5-15) % Eos % (Auto) (0-8) % Baso % (Auto) (0-1) % Immature Gran # (Auto) 10*3/UL Neut # (Auto) 10*3/UL Lymph # (Auto) 10*3/uL [place] # (Auto) (0.3-0.8) 10*3/UL Eos # (Auto) 10*3/UL Baso # (Auto) 10*3/UL WBC Morphology Comment (NORM) Plt Morphology Comment (NORM) RBC Morph Comment (NORM) Sodium 135 (135-145) meq/L Potassium 3.8 (3.8-5.2) meq/L Chloride 100 (98-112) meq/L Carbon Dioxide 27 (23-33) meq/L Anion Gap 8 (5-20) BUN 13 (7-22) mg/dL Creatinine 0.5 (0.50-1.20) mg/dL Estimated GFR > 60 (>60 ml/min/1.73m(2)) BUN/Creatinine Ratio 26.00 H (6-20) Glucose 140 H (78-110) mg/dL Calculated Osmolality 281.0 (267-292) mOsm/kg Lactic Acid 0.6 L (0.70-2.10) MMOL/L Calcium 8.2 L (8.7-10.7) mg/dL Magnesium 2.0 (1.6-2.4) mg/dL Total Bilirubin 0.4 (0.3-1.2) mg/dL AST 12 (8-39) IU/L ALT 33 (9-52) IU/L Alkaline Phosphatase 88 (38-126) IU/L C-Reactive Protein (0.0-0.9) mg/dL Total Protein 5.6 L (6.1-8.0) g/dL Albumin 2.6 L (3.5-4.8) g/dL Globulin 3.0 (2.50-4.10) g/dL Albumin/Globulin Ratio 0.80 L (1.3-2.0) mg/g Serum HCG, [address] [facility] [id number] PH: DD: [phone] FAX: [phone] ~DIAGNOSTIC IMAGING REPORT~ Patient: ANTIONETTE BACH : 1985 Sex: F Age: 32 Exam Name: CT Abdomen/Pelvis WO Contrast Exam Date: 05/12/17 Report # : [id number] CPT Code: 08017 EMR/MR #: [id number] Ordering: Cory Minor Admiting: Primary: Josh Finnegan MD. Attending: Signed EXAM: CT Abdomen and Pelvis Without Intravenous Contrast CLINICAL HISTORY: Physician Notes: Tech Comments: TECHNIQUE: Axial computed tomography images of the abdomen and pelvis without intravenous contrast. COMPARISON: 05/01/2017 FINDINGS: Lower thorax: Bilateral breast implants. Trace bilateral pleural fluid. Partially imaged geographic lucency at the left lung, question focal air trapping. ABDOMEN: Liver: Unremarkable. Gallbladder and bile ducts: Unremarkable. No calcified stones. No ductal dilation. Pancreas: Unremarkable. No ductal dilation. Spleen: Unremarkable. No splenomegaly. Adrenals: Unremarkable. No mass. Kidneys and ureters: Unremarkable. No obstructing stones. No hydronephrosis. Stomach and bowel: There is wall thickening and prominence of the distal sigmoid colon, extending into the left and transverse colon. More upstream colon is moderately dilated and distended with stool and gas. Appendix: No findings to suggest acute appendicitis. PELVIS: Bladder: Unremarkable. No stones. Reproductive: Unremarkable as visualized. ABDOMEN and PELVIS: Intraperitoneal space: Small amount of free fluid. No free air. Bones/joints: Mild bilateral sacroiliitis. No acute fracture. No dislocation. Soft tissues: Unremarkable. Vasculature: Unremarkable. No abdominal aortic aneurysm. Lymph nodes: Unremarkable. No enlarged lymph nodes. Other findings: IMPRESSION: There is wall thickening and prominence of the distal sigmoid colon, extending into the left and transverse colon. More upstream colon is moderately dilated and distended with stool and gas. Question enteritis/colitis, with evidence of upstream obstruction/ileus. Correlate with history of inflammatory bowel disease. Dictated By: Lety Camacho MD Signed By: 05/12/17 0252 Lety Camacho MD Operative Report Patient: ANTIONETTE BACH : 1985 Age/Sex: 32 / F Admission Date: 04/07/17 Admitting Provider: Attending Provider: Hermann Richardson MD Colonoscopy Procedure Note Surgery Date: 04/07/17 Preoperative Diagnosis: Diarrhea. Bright red blood per rectum. Postoperative Diagnosis: Diarrhea. Bright red blood per rectum. Anterior anal fissure. Colitis. Procedure: Colonoscopy with multiple biopsies. Anoscopy. Surgeon: Hermann Richardson MD Anesthesia Provider: Denzel Smith CRNA Anesthesia Type: MAC Indications: Patient with a 3 month history of diarrhea and bright red blood per rectum. She is taken for endoscopy. Findings: Prep : [Very good] Cecum : [Normal] Ascending : [Normal] Transverse : [Colitis with erythema and friability] Sigmoid : [Colitis with erythema and friability] Rectum : [Mild erythema and friability] Digital Rectal Exam : [Small anterior fissure] Terminal ileum:[Visually normal] Anoscopy:[Small anterior anal fissure] A lubricated flexible colonoscope was inserted and passed to the blind end of the cecum. The terminal ileum was intubated and was visually normal. Biopsies were taken. Hemostasis was assured. The scope was withdrawn into the cecum. Air was aspirated as the scope was withdrawn. The ascending colon was visually unremarkable. Multiple biopsies were taken. Hemostasis was assured. Starting at the hepatic flexure there was an obvious colitis with erythema, and induration of the mucosa, and friability. Multiple transverse colon biopsies were taken. The colitis continued down to the lower rectum. Multiple biopsies were taken in the sigmoid colon and rectum. The scope was withdrawn completing the procedure. The patient tolerated all aspects of the procedure well without complication. She was taken to outpatient surgery in stable condition. Follow-up will be with my office in 1-2 weeks to discuss the biopsies. Therapy and follow-up pending biopsy results. DRAFT COPY UNLESS ELECTRONICALLY or MANUALLY SIGNED BY AUTHOR(S) OF DOCUMENT <Electronically signed by Hermann Richardsno MD> 04/07/17 1012 Past Medical History Medical History: Insomnia, inflammatory bowel disease. Surgical History: Breast augmentation, tonsillectomy and adenoidectomy, colonoscopy. Tobacco Use: Never Smoker In the Past 12 Months, Have Used or Abuse Any of the Following Substance: None Medication / Allergies Home Medications: Home Medications Medication Instructions Recorded Confirmed Type Ethinyl Estradiol/Drospirenone 1 tab PO DAILY #3 packet 11/17/16 05/12/17 Rx [Gianvi 3 mg-0.02 mg Tablet] Folic Acid 1 tab PO DAILY #30 tab 04/13/17 05/12/17 Clinic predniSONE Tab [Deltasone Tab] 40 mg PO DAILY tab 05/04/17 05/12/17 Rx Ferrous Gluconate 325 mg PO DAILY #30 tab 05/05/17 05/12/17 Rx Pantoprazole Sodium [Protonix] 40 mg PO QD #20 tab 05/05/17 05/12/17 Rx Prednisone 60 mg PO QDAY #30 tab 05/05/17 05/12/17 Rx oxyCODONE/APAP 5/325 Tab 1 tab PO Q4H PRN #24 tab 05/05/17 05/12/17 Rx [Percocet 5/325 Tab] zolpidem 5 mg tablet 5 mg PO DAILY #30 tab 05/10/17 05/12/17 Rx Allergies/Adverse Reactions: Allergies 3 Allergy/AdvReac Type Severity Reaction Status Date / Time No Known Allergies Allergy Verified 05/12/17 06:36 Review of Systems - Respiratory Respiratory: DENIES: Negative System Review, Cough, Sputum, Dyspnea At Rest, Dyspnea with Exertion, Pleuritic Pain, Hemoptysis, Wheezing, Other, See HPI - Cardiovascular Cardiovascular: DENIES: Negative System Review, Chest Pain, Edema, Syncope, Palpitations, Orthopnea, Paroxysmal Nocturnal Dyspnea, Other, See HPI - Gastrointestinal Gastrointestinal / Abdominal: REPORTS: Diarrhea, Abdominal Pain - Genitourinary Genitourinary: DENIES: Negative System Review, Pain, Burning, Hematuria, Incontinence, Urgency, Hesitant Stream, Decreased Stream, Nocutria, Discharge, Sexual Dysfunction, Other, See HPI Exam - Vitals Vital Signs: Vital Signs Temperature 97.6 F Temperature Source Oral Pulse Rate [Apical] 100 Pulse Rate [Pulse Oximeter] 86 Respiratory Rate 18 Blood Pressure [Left Arm] 99/65 Pulse Ox 87 Oxygen Flow Rate 1 Oxygen Delivery Method Room Air Height 5 ft 5 in Weight 117 lb 8 oz - General General Appearance: Mild Distress, Disheveled, Thin - Head Head Exam: Normal Inspection - Respiratory Respiratory Exam: POSITIVE: Clear to Auscultation - Bilaterally, Breathing Non Labored, Normal To Percussion - Cardiovascular Cardiovascular Exam: POSITIVE: RRR, No Murmur, No Clicks - GI/Abdominal GI/Abdominal Exam: POSITIVE: Non Tender, Non Distended. NEGATIVE: Guarding, Rebound Additional GI/Abdominal Exam Details: Generalized tenderness no guarding or rebound - Extremities Extremities Exam: POSITIVE: No Clubbing Present, No Edema Present, No Cyanosis Present - Neurological Neurological Exam: POSITIVE: Alert, Oriented x 3, No Facial Droop, Speech Intact / Clear Results - Labs CBC and BMP: 05/12/17 08:51 05/12/17 08:51 Assessment and Plan - Patient Problems (1) Anemia Current Visit: Yes Status: Acute Code(s): D64.9 - Anemia, unspecified (2) Inflammatory bowel disease Current Visit: No Status: Acute Priority: High Code(s): K52.9 - Noninfective gastroenteritis and colitis, unspecified (3) Dehydration Current Visit: No Status: Resolved Code(s): E86.0 - Dehydration (4) Hypokalemia Current Visit: No Status: Resolved Code(s): E87.6 - Hypokalemia
--- NOTE | 2017-05-12 10:41 | DCSUMMARY ---
Hospitalization Summary Hospital Course: See H&P same day admit discharge Exam - Vitals Vital Signs: Vital Signs Temperature 97.6 F Temperature Source Oral Pulse Rate [Apical] 100 Pulse Rate [Pulse Oximeter] 86 Respiratory Rate 18 Blood Pressure [Left Arm] 99/65 Pulse Ox 87 Oxygen Flow Rate 1 Oxygen Delivery Method Room Air Height 5 ft 5 in Weight 117 lb 8 oz Patient Problems - Patient Problem List (1) Anemia Current Visit: Yes Status: Acute Code(s): D64.9 - Anemia, unspecified Category: Medical (2) Inflammatory bowel disease Current Visit: No Status: Acute Priority: High Comment: Findings: Prep : [Very good] Cecum : [Normal] Ascending : [Normal] Transverse : [Colitis with erythema and friability] Sigmoid : [Colitis with erythema and friability] Rectum : [Mild erythema and friability] Digital Rectal Exam : [Small anterior fissure] Terminal ileum:[Visually normal] Anoscopy:[Small anterior anal fissure] these sre colonoscopy reports Code(s): K52.9 - Noninfective gastroenteritis and colitis, unspecified Category: Medical (3) Dehydration Current Visit: No Status: Resolved Comment: Normal saline at 125 an hour with 20 K Code(s): E86.0 - Dehydration Category: Medical (4) Hypokalemia Current Visit: No Status: Resolved Code(s): E87.6 - Hypokalemia Category: Medical
[2017-05-12] MEDS ORDERED: metroNIDAZOLE 500mg (Premix) 500 MG/100 ML BAG IV SCH (18:00)
[2017-05-12] MEDS ORDERED: Zolpidem Tab 5 MG TAB PO SCH (21:00)
[2017-05-13] MEDS ORDERED: Levofloxacin (Premix) 500 MG/100 ML BAG IV SCH (09:00)
== END 2017-05-12 11:10 | disposition short-term general hospital (02) | DRG 386 ==
LOC: ER 00:35 → MED/SURG 03:37
PROVIDERS: ADMIT Internal Medicine; ATTEND Internal Medicine

== ENCOUNTER 2018-10-29 15:30 | Inpatient (IN) ==
[2018-10-29] MEDS ORDERED: ONDANSETRON 4 MG/2 ML VIAL IVP ONE (16:12)
[2018-10-29] MEDS ORDERED: Sodium Chloride 0.9% 1,000 ML PRIMARY IV ONE (16:12)
[2018-10-29] MEDS ORDERED: Acetaminophen 1000mg Inj 1,000 MG/100 ML VIAL IV ONE (16:12)
[2018-10-29 16:25] LABS: BASOPHILS # (AUTO) 0.03 10*3/UL; BASOPHILS % (AUTO) 0.1 % (0-1); EOSINOPHILS # (AUTO) 0.01 10*3/UL; EOSINOPHILS % (AUTO) 0 % (0-8); Hematocrit [HCT] 40.3 % (37.0-47.0); Hemoglobin [HGB] 13.1 g/dL (12.0-16.0); LYMPHOCYTES # (AUTO) 0.84 10*3/uL; MEAN CORPUSCULAR HEMOGLOBIN 29.9 PG (27-31); MEAN CORPUSCULAR HGB CONC 32.5 g/dL (33-37); MEAN PLATELET VOLUME 8.5 FL (7.4-12.2); MONOCYTES # (AUTO) 1.94 10*3/UL (0.3-0.8); NEUTROPHILS % (AUTO) 88.1 % (50-80); RED BLOOD COUNT 4.38 10^6/uL (4.20-5.40)
[2018-10-29 16:35] LABS: PLATELET MORPHOLOGY COMMENT NORMAL MORPHOLOGY (NORM); RBC MORPHOLOGY COMMENT NORMAL MORPHOLOGY (NORM); WBC MORPHOLOGY COMMENT NORMAL MORPHOLOGY (NORM)
[2018-10-29 16:36] LABS: VENOUS PH 7.42 (7.32-7.42)
[2018-10-29 17:17] LABS: BLOOD UREA NITROGEN 14 mg/dL (7-22); SERUM ALBUMIN 4.1 g/dL (3.5-4.8)
[2018-10-29] MEDS ORDERED: Ertapenem Inj 1 GM in Sodium Chloride 0.9% 100 ML IV ONE (17:51)
--- NOTE | 2018-10-29 17:51 | DI ---
PA /LATERAL CHEST, 10/29/2018 4:12 PM : Clinical History: Cough. Fever. Previous Exam: 10/21/2018. Soft Tissues: No acute soft tissue abnormality. Bones: Normal. Dextroscoliosis of the upper thoracic spine. Heart: Mild cardiomegaly without CHF. Lungs: Since the previous exam, the patient has developed a right upper lobe pneumonia. Effusion(s): None. Mediastinum: Normal mediastinum. Nodules: No pulmonary nodules. Reading: Interval development of a right upper lobe pneumonia.
[2018-10-29 18:06] LABS: BILIRUBIN,URINE NEGATIVE (NEG); CLARITY,URINE CLEAR (CLEAR); COLOR,URINE YELLOW (Y); GLUCOSE, URINE (UA) NEGATIVE (NEG); OCCULT BLOOD,URINE Trace-intact (NEG); PROTEIN,URINE NEGATIVE (NEG); UROBILINOGEN,URINE 0.2 EU/dL (0.2)
--- NOTE | 2018-10-29 18:07 | DI ---
CT HEAD SCAN WITHOUT IV CONTRAST, 10/29/2018 4:12 PM : Clinical History: Headache. Previous Exam: None at this facility. Technique: Performed from the foramen magnum to vertex without IV contrast. Contrast Volume: None. 4th Ventricle: Normal. 3rd Ventricle: Normal. Lateral Ventricles: Normal. Sella: Normal size and normal pituitary gland. Cerebrum: Normal. There is no evidence of an acute subarachnoid hemorrhage or intraparenchymal hemorr matias. There is no acute bland infarct. Cerebellum: Normal. No cerebellopontine angle mass. Normal cerebellar tonsillar position. Brainstem: Normal. Atrophy: No atrophy. Extracerebral Mantles/Midline Shift: No extracerebral mantle or dural lesion. No midline shift. Sinuses: Normal. Skull: Intact. READING: Normal noncontrast CT head scan. No acute intracranial hemorrhagic focus is identified.
--- NOTE | 2018-10-29 18:17 | DI ---
CT CHEST SCAN WITH IV CONTRAST, 10/29/2018 4:16 PM : Clinical History: Cough. Fever. Previous Exam: 09/09/2018. Technique: Scans from base of neck to lung bases with IV contrast. Non-MIPS and MIPS sagittal/coronal images generated. IV Contrast: 75 mL of Isovue 300. Base of Neck: Normal. Nodes: Normal axillary, supraclavicular, mediastinal, and hilar lymph nodes. Heart: Normal. No coronary artery calcifications. Aorta: Normal thoracic aorta. No aneurysm or dissection. Pulmonary Arteries: Normal. No pulmonary emboli or infarcts; no pulmonary hypertension. Lungs: Right upper lobe pneumonia involving primarily the anterior segment. Blebs are present in the left upper lobe without evidence of blebs or interstitial lung disease in any other lobe. Effusion(s): None. Nodules: None. Bony Structures: Normal visualized portions of ribs, sternum, scapulae, clavicles, and shoulders. Nor mal visualized portions of thoracic spine. Midthoracic dextroscoliosis. Limited Upper Abdomen: Normal adrenal glands, spleen, and visualized portions of the liver and pancre as. READIN. Right upper lobe pneumonia. 2. Left upper lobe blebs without evidence of chronic interstitial lung disease. The exact etiology f or the blebs is uncertain.
--- NOTE | 2018-10-29 18:34 | DI ---
CT ABDOMEN SCAN WITH IV CONTRAST, 10/29/2018 4:16 PM : Clinical History: Vomiting. Crohn's disease. Previous Exam: 09/09/2018. IV Contrast: Same bolus of contrast used for the CT scan of the chest. Oral Contrast: No oral contrast ordered. Rectal Contrast: No rectal contrast ordered. Lungs: No infiltrate or effusion. Liver: Hepatomegaly with diffuse but irregular fatty infiltration. Gallbladder: Grossly normal. Adrenal Glands: Normal. Spleen: Normal. Pancreas: Normal. Kidneys: Normal size, shape, position and contour. No hydronephrosis or hydroureter. No renal or uret eral calculi. Masses: None. Lymph Nodes: Normal. Ascites: No ascites. Free Air: None. Spine: Normal lower thoracic and lumbar spine. READING: Hepatomegaly with diffuse but inhomogeneous fatty infiltration. CT PELVIS SCAN WITH IV CONTRAST, 10/29/2018 4:16 PM: Clinical History: See above. Previous Exam: 09/09/2018. Contrast: Same bolus used for CT scans of the chest and abdomen. Masses: No masses or enhancing lesions. Ascites: None. Free Air: None. Lymph Nodes: No adenopathy. Appendix: Normal. Small Bowel: Normal small bowel caliber without evidence of obstruction or ischemia. Colon: There is an anastomosis low in the pelvis involving the rectum. No typical colonic structures are visualized in this patient may have had a total colectomy. This impression should be correlated w ith the surgical history. Uterus: Normal. Ovaries: Normal. Bladder: Normal. Hernias: None. Bony Pelvis: Normal sacrum, pelvic bones, and hips. READIN. No colonic tissue can be identified except for the very distal portion of the rectum. This patien t may have had a total colectomy and correlation with surgical operative notes or with the patient's history is recommended. There is no bowel obstruction noted. The loops of small bowel are unremarkabl e. 2. The remainder of the examination is normal.
[2018-10-29 18:35] LABS: SQUAMOUS EPITHELIAL CELL,UR FEW; URINE SAMPLE TYPE CATH SPECIMEN
[2018-10-29] MEDS ORDERED: HYDROmorphone 2 MG/1 ML IVP ONE (18:57)
[2018-10-29] MEDS ORDERED: ALBUTEROL SULFATE 2.5 MG/3 ML NEB PRN (19:34)
[2018-10-29] MEDS ORDERED: predniSONE Tab 20 MG TAB PO SCH (19:34)
[2018-10-29] MEDS ORDERED: Vancomycin-PHA to Dose IV PRN (19:34)
[2018-10-29] MEDS ORDERED: [UNRECOGNIZED DRUG - OTHER] PR PRN (19:34)
[2018-10-29] MEDS ORDERED: DIAZEPAM 5 MG TABLET PO PRN (19:34)
[2018-10-29] MEDS ORDERED: oxyCODONE IR Tab 5 MG TAB PO PRN (19:34)
[2018-10-29] MEDS ORDERED: LIDOCAINE W/ SODIUM BICARB 0.5 ML SYR SUBD PRN (19:34)
[2018-10-29] MEDS ORDERED: PRAMOXINE HCL PR PRN (19:34)
[2018-10-29] MEDS ORDERED: BENZOCAINE Mucous Membrane PRN (19:34)
[2018-10-29] MEDS ORDERED: METRONIDAZOLE 250 MG PO SCH (19:34)
[2018-10-29] MEDS: ONDANSETRON 4 MG/2 ML VIAL IVP PRN (20:05)
--- NOTE | 2018-10-29 20:27 | HOSP.PSI ---
Pneumonia Severity Index - PSI Age: 33 Sex: Female Care Home Resident: No History of Neoplastic Disease: No History of Liver Disease: No History of Congestive Heart Failure: No History of Cerebrovascular Disease: No History of Renal Disease: No Altered Mental Status: Yes Respiratory Rate Greater Than 30: No Systolic Blood Pressure Less Than 90 mmHg: Yes Temperature Less Than 95F or Greater Than 103.8F: No Pulse Greater Than 124 bpm: No pH Less Than 7.35: No BUN Greater Than 29: No Sodium Less Than 130: No Glucose Greater Than 249: No Hematocrit Less Than 30%: No Partial Pressure of Oxygen Less Than 60 mmHg: No Pleural Effusion on Xray: No (This is complicated by hypoxia and immunocompromised status, at criteria for sepsis.) Total PSI Score: 63 PSI Risk: Low Risk (<70) = Consider Outpatient Care
--- NOTE | 2018-10-29 20:31 | PDOC ---
HPI - History of Present Illness Date of Service: 10/29/18 Time of Service: 20:26 Chief Complaint: Cough and not feeling well History of Present Illness: This very pleasant 33-year-old female with known history of Crohn's disease, complicated by total colectomy, and on prednisone, chronic pain syndrome, history of pneumonia and upper extremity DVT, who presents complaining with her mother today complaining of cough that really started sometime yesterday. She actually got a tattoo yesterday, but her cough started about that time or someti me after. She had some fevers and chills. She states that she did get the influenza vaccine, but of course based on age has not had Pneumovax. She does not smoke. She states that the cough and shortness of breath and right-sided chest pain, lateral, significantly got worse today. She states that she literally would sit up in bed, and almost "blacked out" and then lay back down. She could not go into work today. She came in for evaluation, she was found to have significant right upper lobe pneumonia. She was given a dose of Invanz in the emergency room. There is no history of aspiration. The patient's blood pressure was 98 systolic, she was tachycardic, and appears to have mild sepsis syndrome as well. She has had pneumonia before, was treated with the infectious disease service in [place]. She no longer has a PICC line. Nothing really made the symptoms better. She did note that she had significant headaches with this and was also found to be hypoxic at around 85% was told in my discussion with emergency room physician. A CT was done with contrast, but it was not a CTA so it is not known if there were any pulmonary emboli present, but the pneumonia was noted on the CT scan as well. Past Medical History Medical History: 1. Crohn's disease status post colectomy, ileostomy and reversal with pouch creation. Her disease also caused ulceration in her mouth and the small intestine she was tried on Humira but it didn't work she end up up with an infection. At one point in time they will try Stelara. Her GI specialist is Dr. Renner in [place]. 2. Pneumonia July,. 3. History of Pouchitis on recently changed on antibiotics for metronidazole, but not sure the name of the new antibiotic.. 4. History of Swyer-Misael syndrome. 5. History of a pulmonary embolism, on Eliquis expected through January of this year, minimum Surgical History: 1. Breast augmentation. 2. Tonsillectomy and adenoidectomy. 3. Colon resection as noted above. Pertinent Family History: Parents are described as healthy. Her sister has pots syndrome Past Social History: Used to smoke doesn't drink no drugs. Has 1 tattoo that she actually got yesterday. Not . No children. 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 Tobacco Use: Former Smoker In the Past 12 Months, Have Used or Abuse Any of the Following Substance: None Alcohol Use: None Medication / Allergies Home Medications: Home Medications Medication Instructions Recorded Confirmed Type Ferrous Gluconate 325 mg PO DAILY #30 tab 06/22/17 10/29/18 Rx nystatin-triamcinolone 100,000 1 applic TOPICAL TID #60 g 03/19/18 10/29/18 Rx unit/g-0.1 % topical cream hydrocortisone-pramoxine 2.5 %-1 % 1 applic OK TID PRN #30 g 05/01/18 10/29/18 Rx rectal cream acetaminophen 500 mg tablet 500 mg PO Q6H PRN 07/25/18 10/29/18 History escitalopram 20 mg tablet 20 mg PO QDAY #30 tab 07/25/18 10/29/18 Rx lactobacillus combination no.8 3 3,000 mmu cells PO QDAY 07/25/18 10/29/18 History billion cell capsule loperamide 2 mg capsule 4 mg PO .daily PRN cap 07/25/18 10/29/18 History multivitamin tablet 1 tab PO QAM 07/25/18 10/29/18 History trazodone 50 mg tablet 50 mg PO QHS #60 tab 07/25/18 10/29/18 Rx benzocaine 20 % mucosal paste 1 applic MUCOUS MEMBRANE QID PRN 08/25/18 10/29/18 Rx #30 g prednisone 20 mg tablet 20 mg PO QDAY #7 tab 08/25/18 10/29/18 Rx Apixaban [Eliquis] 5 mg PO BID #60 tab 09/11/18 10/29/18 Rx folic acid 1 mg tablet 1 mg PO QDAY #1 tab 09/11/18 10/29/18 Clinic oxyCODONE IR Tab [OxyIR Tab] 1 tab PO Q6H PRN 10/23/18 10/29/18 History Diazepam 5 mg PO BID 10/29/18 10/29/18 History Morphine Sulfate [Morphine Sulfate 15 mg PO BID 10/29/18 10/29/18 History ER] Allergies/Adverse Reactions: Allergies Allergy/AdvReac Type Severity Reaction Status Date / Time adalimumab [From Humira] Allergy SHORTNESS Verified 10/29/18 16:39 OF BREATH Review of Systems - Review of Systems All Systems: Reviewed & No Additional Complaints Except as Stated (I did a 12 point review systems and it was negative other than that discussed below and in the history of present illness.) - Neurological Neurologic: REPORTS: Headache (Has had headaches today with the this cough and hypoxia noted in the emergency room) Exam - Vitals Vital Signs: Vital Signs Temperature 97.6 F Temperature Source Temporal Artery Scan Pulse Rate [Pulse Oximeter] 114 Respiratory Rate 16 Blood Pressure [Left Arm] 98/61 Pulse Ox 85 Oxygen Delivery Method Room Air Height 5 ft 5 in Weight 150 lb - General General Appearance: No Acute Distress, Cooperative Additional General Exam Details: Appears ill but not toxic - Head Head Exam: Atraumatic Additional Head Exam Details: Has a schneider-shaped face from prednisone - Eye Eye Exam: POSITIVE: Normal Appearance, No Scleral Icterus - ENT ENT Exam: POSITIVE: Mucous Membranes Dry - Neck Neck Exam: Normal Inspection, No Tenderness, No Lymphadenopathy, No Thyromegaly, JVP is not Raised - Respiratory Respiratory Exam: POSITIVE: Breathing Non Labored, Decreased Breath Sounds, Coarse Breath Sounds (In right upper lobe) - Cardiovascular Cardiovascular Exam: POSITIVE: No Murmur, No Clicks, No Gallops, No Rubs, Tachycardia, No JVD - GI/Abdominal GI/Abdominal Exam: POSITIVE: Normal Bowel Sounds, Non Tender, Non Distended, Soft - Rectal Rectal Exam: POSITIVE: Deferred - External Exam: POSITIVE: Deferred Exam: POSITIVE: Deferred - Extremities Extremities Exam: POSITIVE: No Clubbing Present, No Edema Present, No Cyanosis Present - Back Back Exam: POSITIVE: No CVA Tenderness - Neurological Neurological Exam: POSITIVE: Alert, Oriented x 3, Normal Gait, No Facial Droop, Speech Intact / Clear, Moves All Extremities Equally - Psychiatric Psychiatric Exam: POSITIVE: Normal Affect, Normal Mood Results - Labs CBC and BMP: 10/29/18 15:56 10/29/18 15:56 Additional Lab Results: Laboratory Results 10/29/18 10/29/18 10/29/18 15:56 15:56 15:56 WBC 24.30 H RBC 4.38 Hgb 13.1 Hct 40.3 MCV 92.0 MCH 29.9 MCHC 32.5 L RDW Std Deviation 45.9 RDW Coeff of Dona 14.0 Plt Count 363 H MPV 8.5 Immature Gran % (Auto) 0.3 Neut % (Auto) 88.1 H Lymph % (Auto) 3.5 L [place] % (Auto) 8.0 Eos % (Auto) 0 Baso % (Auto) 0.1 Immature Gran # (Auto) 0.08 Neut # (Auto) 21.40 Lymph # (Auto) 0.84 [place] # (Auto) 1.94 H Eos # (Auto) 0.01 Baso # (Auto) 0.03 WBC Morphology Comment Normal morphology Plt Morphology Comment Normal morphology RBC Morph Comment Normal morphology PT 10.5 INR 1.03 VBG pH VBG pCO2 VBG HCO3 VBG Base Excess Sodium 139 Potassium 4.1 Chloride 96 L Carbon Dioxide 32 Anion Gap 11 BUN 14 Creatinine 0.8 Estimated GFR > 60 BUN/Creatinine Ratio 17.50 Glucose 145 H Calculated Osmolality 291.0 Lactic Acid Calcium 9.7 Magnesium 1.8 Total Bilirubin 0.7 D AST 19 ALT 32 Alkaline Phosphatase 98 Total Creatine Kinase < 20 L C-Reactive Protein 8.1 H Total Protein 7.4 Albumin 4.1 Globulin 3.3 Albumin/Globulin Ratio 1.20 L Serum HCG, Qual Ur Collection Type Urine Color Urine Clarity Urine pH Ur Specific [place] Urine Protein Urine Glucose (UA) Urine Ketones Urine Occult Blood Urine Nitrate Urine Bilirubin Urine Urobilinogen Ur Leukocyte Esterase Urine RBC Urine WBC Ur Squamous Epith Cells Ur Renal Epithelial Cell Urine Crystals Urine Bacteria Urine Casts Urine Mucus Urine Trichomonas Urine Yeast Ur Culture Indicated? Ur Strep pneumoniae Ag 10/29/18 10/29/18 10/29/18 15:56 15:56 16:12 WBC RBC Hgb Hct MCV MCH MCHC RDW Std Deviation RDW Coeff of Dona Plt Count MPV Immature Gran % (Auto) Neut % (Auto) Lymph % (Auto) [place] % (Auto) Eos % (Auto) Baso % (Auto) Immature Gran # (Auto) Neut # (Auto) Lymph # (Auto) [place] # (Auto) Eos # (Auto) Baso # (Auto) WBC Morphology Comment Plt Morphology Comment RBC Morph Comment PT INR VBG pH VBG pCO2 VBG HCO3 VBG Base Excess Sodium Potassium Chloride Carbon Dioxide Anion Gap BUN Creatinine Estimated GFR BUN/Creatinine Ratio Glucose Calculated Osmolality Lactic Acid 2.0 Calcium Magnesium Total Bilirubin AST ALT Alkaline Phosphatase Total Creatine Kinase C-Reactive Protein Total Protein Albumin Globulin Albumin/Globulin Ratio Serum HCG, Qual Negative Ur Collection Type Cath specimen Urine Color Yellow Urine Clarity Clear Urine pH 7.0 Ur Specific [place] 1.010 Urine Protein Negative Urine Glucose (UA) Negative Urine Ketones Negative Urine Occult Blood Trace-intact H Urine Nitrate Negative Urine Bilirubin Negative Urine Urobilinogen 0.2 Ur Leukocyte Esterase Negative Urine RBC 3-5 Urine WBC 3-5 Ur Squamous Epith Cells Few Ur Renal Epithelial Cell None Urine Crystals None Urine Bacteria None Urine Casts None Urine Mucus Rare Urine Trichomonas None Urine Yeast None Ur Culture Indicated? Culture not set Ur Strep pneumoniae Ag 10/29/18 10/29/18 16:24 18:00 WBC RBC Hgb Hct MCV MCH MCHC RDW Std Deviation RDW Coeff of Dona Plt Count MPV Immature Gran % (Auto) Neut % (Auto) Lymph % (Auto) [place] % (Auto) Eos % (Auto) Baso % (Auto) Immature Gran # (Auto) Neut # (Auto) Lymph # (Auto) [place] # (Auto) Eos # (Auto) Baso # (Auto) WBC Morphology Comment Plt Morphology Comment RBC Morph Comment PT INR VBG pH 7.42 VBG pCO2 52 VBG HCO3 33 H VBG Base Excess 9 H Sodium Potassium Chloride Carbon Dioxide Anion Gap BUN Creatinine Estimated GFR BUN/Creatinine Ratio Glucose Calculated Osmolality Lactic Acid Calcium Magnesium Total Bilirubin AST ALT Alkaline Phosphatase Total Creatine Kinase C-Reactive Protein Total Protein Albumin Globulin Albumin/Globulin Ratio Serum HCG, Qual Ur Collection Type Urine Color Urine Clarity Urine pH Ur Specific [place] Urine Protein Urine Glucose (UA) Urine Ketones Urine Occult Blood Urine Nitrate Urine Bilirubin Urine Urobilinogen Ur Leukocyte Esterase Urine RBC Urine WBC Ur Squamous Epith Cells Ur Renal Epithelial Cell Urine Crystals Urine Bacteria Urine Casts Urine Mucus Urine Trichomonas Urine Yeast Ur Culture Indicated? Ur Strep pneumoniae Ag Negative - Imaging Status: Image Reviewed by Me (Chest x-ray, on my view, right upper lobe pneumonia. CT scan of the chest shows right upper lobe pneumonia. The head CT scan looks negative for bleed. Abdominal CT scan done. I reviewed this and the radiologist felt that it was consistent with fatty liver infiltration. Absence of colon consistent with her history.) Assessment and Plan - Patient Problems (1) Sepsis Current Visit: Yes Status: Acute Code(s): A41.9 - Sepsis, unspecified organism Qualifiers: Sepsis type: sepsis due to unspecified organism Qualified Code(s): A41.9 - Sepsis, unspecified organism (2) Pneumonia Current Visit: Yes Status: Acute Code(s): J18.9 - Pneumonia, unspecified organism Qualifiers: Pneumonia type: due to unspecified organism Laterality: right Lung location: upper lobe of lung Qualified Code(s): J18.1 - Lobar pneumonia, unspecified organism (3) Immunocompromised due to corticosteroids Current Visit: Yes Status: Acute Code(s): Z79.52 - shelter (current) use of systemic steroids (4) Crohns disease Current Visit: Yes Status: Chronic Code(s): K50.90 - Crohn's disease, unspecified, without complications Qualifiers: Gastrointestinal tract location: small intestine Digestive disease complication type: other complication Qualified Code(s): K50.018 - Crohn's disease of small intestine with other complication (5) History of pulmonary embolism Current Visit: Yes Status: Acute Code(s): Z86.711 - Personal history of pul monary embolism - Assessment / Plan Additional Assessment/Plan Details: Admit patient. She needs immediate fluid resuscitation and I gave her 2 L of normal saline upon arrival to the floor. Antibiotics will be given IV given immunocompromised status, I think it important to consider this a healthcare associated pneumonia, and treat with cefepime and vancomycin, check MRSA nasal screen and if negative, consider dropping vancomycin I will write for some breathing therapies including nebulized therapies if necessary. Oxygen as necessary to keep saturations greater than 91%. Respiratory therapy to evaluate. incentive spirometry Vitamin C by mouth. We'll check a urinary antigen for strep pneumoniae. 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 CODE STATUS is full code Blood cultures are pending. Telemetry monitoring for now. course of antibiotics will be minimum of 7 days, and will switch to oral antibiotics within 48 hours if clinical picuture stabilizes. But I would like to discuss this with infectious disease pending on how patient progresses in the next 12-24 hours. Close monitoring of blood pressure. If hypertension persists, may need to consider stress dose of hydrocortisone. Plan above discussed with patient and patient agreed
[2018-10-29] MEDS ORDERED: HYDROmorphone 2 MG/1 ML IVP PRN (20:33)
[2018-10-29] MEDS: ACETAMINOPHEN 500 MG TABLET PO PRN ×2 (20:40→21:43)
[2018-10-29] MEDS: oxyCODONE IR Tab 5 MG TAB PO PRN (20:49)
[2018-10-29] MEDS: MORPHINE SULFATE 15 MG ER TABLET PO SCH (20:49)
[2018-10-29] MEDS: Cefepime Inj 2 GM in Sodium Chloride 0.9% 100 ML IV SCH (20:53)
[2018-10-29] MEDS ORDERED: Apixaban 5 MG TABLET PO SCH (21:00)
[2018-10-29] MEDS ORDERED: traZODone Tab 50 MG TAB PO SCH (21:00)
[2018-10-29] MEDS: GUAIFENESIN 600 MG TABLET PO SCH (21:04)
[2018-10-29] MEDS: Sodium Chloride 0.9% 1,000 ML PRIMARY IV PRN (21:05)
[2018-10-29] MEDS ORDERED: Magnesium Sulfate 2gm (Premix) 2 GM/50 ML BAG IV ONE (21:12)
[2018-10-29] MEDS ORDERED: SODIUM CL FOR INHALATION 15 ML NEB NEB ONE ×2 (21:55→22:17)
[2018-10-29] MEDS: HYDROmorphone 2 MG/1 ML IVP PRN (22:57)
[2018-10-30] MEDS: Sodium Chloride 0.9% 1,000 ML PRIMARY IV SCH ×2 (00:31→05:52)
[2018-10-30] MEDS ORDERED: Acetaminophen 1000mg Inj 1,000 MG/100 ML VIAL IV ONE (00:34)
[2018-10-30] MEDS: HYDROmorphone 2 MG/1 ML IVP PRN ×3 (01:14→07:05)
[2018-10-30] MEDS ORDERED: Sodium Chloride 0.9% 1,000 ML PRIMARY IV ONE ×2 (01:21→03:17)
[2018-10-30] MEDS: Cefepime Inj 2 GM in Sodium Chloride 0.9% 100 ML IV SCH (03:36)
[2018-10-30] MEDS ORDERED: HYDROCORTISONE 100 MG/2 ML ONE (04:08)
[2018-10-30 04:09] LABS: BASOPHILS # (AUTO) 0.03 10*3/UL; BASOPHILS % (AUTO) 0.1 % (0-1); EOSINOPHILS # (AUTO) 0.01 10*3/UL; EOSINOPHILS % (AUTO) 0 % (0-8); Hematocrit [HCT] 33.4 % (37.0-47.0); Hemoglobin [HGB] 10.5 g/dL (12.0-16.0); LYMPHOCYTES # (AUTO) 1.07 10*3/uL; MEAN CORPUSCULAR HEMOGLOBIN 29.8 PG (27-31); MEAN CORPUSCULAR HGB CONC 31.4 g/dL (33-37); MEAN CORPUSCULAR VOLUME 94.9 FL (81-99); MONOCYTES # (AUTO) 1.14 10*3/UL (0.3-0.8); MONOCYTES % (AUTO) 5.7 % (5-15); NEUTROPHILS # (AUTO) 17.84 10*3/UL; NEUTROPHILS % (AUTO) 88.5 % (50-80); RED BLOOD COUNT 3.52 10^6/uL (4.20-5.40)
[2018-10-30] MEDS ORDERED: HYDROCORTISONE 100 MG/2 ML IVP ONE (04:11)
[2018-10-30 04:18] LABS: BLOOD UREA NITROGEN 10 mg/dL (7-22); BUN/CREATININE RATIO 14.28 (6-20)
[2018-10-30 04:20] LABS: HEMOGLOBIN A1C 5.79 % (4.2-6.0)
[2018-10-30 04:28] LABS: PLATELET MORPHOLOGY COMMENT NORMAL MORPHOLOGY (NORM); RBC MORPHOLOGY COMMENT NORMAL MORPHOLOGY (NORM); WBC MORPHOLOGY COMMENT NORMAL MORPHOLOGY (NORM)
[2018-10-30] MEDS: Sodium Chloride 0.9% 1,000 ML PRIMARY IV PRN (04:30)
[2018-10-30] MEDS: ONDANSETRON 4 MG/2 ML VIAL IVP PRN ×2 (04:39→08:57)
[2018-10-30] MEDS: SODIUM CHLORIDE 0.9% IV ONE ×2 (05:07→11:02)
[2018-10-30] MEDS: HYDROCORTISONE SOD SUCC IV ONE ×2 (05:07→11:02)
[2018-10-30 06:58] VITALS: RESP 16
[2018-10-30] MEDS: GUAIFENESIN 600 MG TABLET PO SCH (07:04)
[2018-10-30] MEDS: MORPHINE SULFATE 15 MG ER TABLET PO SCH (07:54)
[2018-10-30] MEDS ORDERED: FUROSEMIDE 10 MG/1 ML - 4 ML IVP ONE (08:33)
--- NOTE | 2018-10-30 08:47 | DI ---
AP CHEST X-RAY, 10/30/2018 7:52 AM : Clinical History: Increased O2 requirement. Previous Exam: 10/21/2018; 10/29/2018. Soft Tissues: No acute soft tissue abnormality. Bones: Normal. Heart: Normal heart. Lungs: Progressive consolidation has developed in the right upper lobe with new areas of consolidatio n in both lower lobes and probably also the lingular segment. Effusion(s): There may be a small left pleural effusion. Mediastinum: Normal mediastinum. Nodules: No pulmonary nodules. Reading: Interval development of bilateral lower lobe pneumonia with progressive consolidation of the right up per lobe pneumonia.
[2018-10-30] MEDS ORDERED: SODIUM CHLORIDE 0.9% IV ONE ×2 (08:53→09:46)
[2018-10-30] MEDS ORDERED: HYDROCORTISONE SOD SUCC IV ONE ×2 (08:53→09:46)
[2018-10-30] MEDS: ACETAMINOPHEN 500 MG TABLET PO PRN (08:57)
[2018-10-30] MEDS: oxyCODONE IR Tab 5 MG TAB PO PRN (08:57)
[2018-10-30] MEDS ORDERED: LIDOCAINE HCL 2 % 10 ML JELLY URO-JECT TOPICAL PRN ×2 (08:59→09:46)
[2018-10-30] MEDS ORDERED: ASCORBIC ACID Chewable 500 MG TABLET PO SCH (09:00)
[2018-10-30] MEDS ORDERED: ACIDOPHILUS/BULGARICUS CHEWABLE TABLET PO SCH (09:00)
[2018-10-30] MEDS ORDERED: FERROUS GLUCONATE 324 MG TABLET PO SCH (09:00)
[2018-10-30] MEDS ORDERED: predniSONE Tab 20 MG TAB PO SCH (09:00)
[2018-10-30] MEDS ORDERED: Multivitamin Tab 1 TAB PO SCH (09:00)
[2018-10-30] MEDS ORDERED: FOLIC ACID 1 MG TABLET PO SCH (09:00)
[2018-10-30] MEDS ORDERED: PREDNISONE PO SCH ×2 (09:00)
[2018-10-30] MEDS ORDERED: ESCITALOPRAM 10 MG TABLET PO SCH (09:00)
[2018-10-30] MEDS ORDERED: oxyCODONE IR Tab 5 MG TAB PO PRN (09:46)
[2018-10-30] MEDS ORDERED: Sodium Chloride 0.9% 1,000 ML PRIMARY IV PRN (09:46)
[2018-10-30] MEDS ORDERED: ACETAMINOPHEN 500 MG TABLET PO PRN (09:46)
[2018-10-30] MEDS ORDERED: LIDOCAINE W/ SODIUM BICARB 0.5 ML SYR SUBD PRN (09:46)
[2018-10-30] MEDS ORDERED: DIAZEPAM 5 MG TABLET PO PRN (09:46)
[2018-10-30] MEDS ORDERED: HYDROmorphone 2 MG/1 ML IVP PRN (09:46)
[2018-10-30] MEDS ORDERED: ALBUTEROL SULFATE 2.5 MG/3 ML NEB PRN (09:46)
[2018-10-30] MEDS ORDERED: ONDANSETRON 4 MG/2 ML VIAL IVP PRN (09:46)
[2018-10-30] MEDS ORDERED: Sodium Chloride 0.9% 1,000 ML PRIMARY IV SCH (09:46)
[2018-10-30] MEDS ORDERED: Norepinephrine Drip 8 MG in D5W 250 ML IV SCH (10:00)
[2018-10-30] MEDS ORDERED: Levofloxacin (Premix) 750 MG/150 ML PIGGYBACK IV SCH (10:00)
--- NOTE | 2018-10-30 10:44 | PROCEDURE1 ---
Procedure - - Procedure Performed: Central Line : Non Tunneled Procedure Note: Procedure performed: Right Internal jugular central venous catheter placement Indication for procedure: Sepsis, refractory hypotension, loss of peripheral IV access, pneumonia, with risks discussed as possible arterial puncture, pneumothorax, bleeding, and localized pain. Benefits for medication administration, blood draws, hemodynamic monitoring, and management of sepsis, refractory hypotension, loss of peripheral IV access, pneumonia. Description of procedure: The patient was prepped and draped in the usual fashion with a full body drape. Ultrasound guidance was used to identify the right internal jugular vein. The area was cleansed with chlorhexidine. Lidocaine was used for local anesthesia. Using an introducer needle attached to a 5 mL syringe, this was inserted and angled towards the ipsilateral nipple, with ultrasound guidance as well. There was a flash of venous blood as the internal jugular vein was cannulated via the introducer needle. There was no pulsation to suggest arterial puncture. A guidewire was inserted through the needle into the internal jugular vein and the needle was removed over the wire. A 10 blade was then used to perform a small dermatotomy at the needle insertion site. The venous dilator was then placed over the guidewire using Seldinger technique, and then removed. A 4 port central venous catheter was then placed over the guidewire inserted into the internal jugular vein and the guidewire was removed. All ports were flushed with normal saline and they all were able to be drawn back on. The catheter was sutured into place. The catheter was sutured into place, and the skin was cleansed with chlorhexidine and the catheter was dressed. A postprocedure x-ray showed right IJ line to be in correct position. Less fluid overload. No evidence of pneumothorax. I personally reviewed the chest X-ray. Complications: None present at time of procedure. Disposition: Patient remains in the ICU awaiting transport to higher level of care.
--- NOTE | 2018-10-30 10:49 | DCSUMMARY ---
Hospitalization Summary Admit Date: 10/29/2018 Discharge Date: 10/30/18 Primary Diagnosis:: sepsis with pneumonia Hospital Course: This very pleasant 33-year-old female who is immunocompromised on daily prednisone due to Crohn's disease with difficulty to control. The patient presented with a pneumonia, and was admitted for further evaluation and management. She was placed initially on cefepime and vancomycin. Cultures were drawn. She could not produce sputum culture for analysis unfortunately. She was influenza negative. She developed refractory hypotension and I gave a dose of stress steroids due to her prednisone use, but her systolic blood pressures remained in the 90s. She is complained of significant joint pain as well. She's been more confused today, and is requiring high flow oxygen with Vapotherm therapy. She is at 10 L currently to maintain sats. Given worsened complications in terms of sepsis, refractory hypertension, felt it best to transfer the patient to high-level care. Local facilities were on divert and we were able to get an acceptance with the web site designer at [facility] and I greatly appreciate Dr. Stevens and his help in management of the patient and his acceptance of the patient for further care. When we tried to institute vasopressors, unfortunately, the patient has lost peripheral IV access and we had to proceed with a central line. This was done with risks and benefits explained, and I discussed with the patient's mother in depth as well. Once consent was obtained, the central line was placed and the procedure note is separate and unique of this evaluation. We gave Levaquin, norepinephrine, and hydrocortisone prior to transfer. We will also give replacement potassium. I did give a dose of Lasix today as a patient appeared fluid overloaded on her chest x-ray to me in addition to her pneumonia. Blood cultures are negative thus far but are pending. I have blood testing currently pending for cystic fibrosis. With her joint pains I don't know if this is a syndrome of her pneumonia or not, but I wonder about rheumatoid arthritis as well. Currently the patient is a stabilizes we can get her, but given her condition of sepsis, she could certainly deteriorate. Assessment and Plan: 1. As per discharge assessments noted 2. Disposition: Patient will be discharged to [facility] 3. Condition on discharge, stabilized to the best of our ability. I think stable for transport, but could deteriorate in flight with sepsis and severe pneumonia 4. Diet: We will keep her nothing by mouth for flight 5. Activities: As per [facility] 6. Follow-Up: 1. Primary care physician, Dr. Staton in [place], [place] 7. Medications at the Time of Discharge: Active Medications Generic Name Dose Route Start Last Admin Trade Name Freq PRN Reason Stop Dose Admin Acetaminophen 500 mg 10/30/18 09:46 Tylenol PO Q6H PRN Pain Albuterol Sulfate 2.5 mg 10/30/18 09:46 Albuterol Neb Soln 0.083% NEB RTQID PRN Shortness of Breath Ascorbic Acid 1,000 mg 10/31/18 09:00 Vitamin C PO DAILY DEL Diazepam 5 mg 10/30/18 09:46 Valium PO BID PRN Agitation / Anxiety /Psychosis Escitalopram Oxalate 10 mg 10/31/18 09:00 Lexapro PO DAILY [facility] Ferrous Gluconate 324 mg 10/31/18 09:00 Fergon PO DAILY [facility] Folic Acid 1 mg 10/31/18 09:00 Folic Acid PO DAILY [facility] Guaifenesin 600 mg 10/30/18 19:34 Mucinex Er Tab PO Q12H [facility] Hydromorphone HCl 1 mg 10/30/18 09:46 Dilaudid Inj IVP Q2H PRN Pain not controlled by pills Cefepime HCl 2 gm/ Sodium 100 mls @ 200 mls/hr 10/30/18 11:34 Chloride IV Q8H DEL Sodium Chloride 1,000 mls @ 999 mls/hr 10/30/18 09:46 Normal Saline PRIMARY IV .Q1H1M PRN 1 OF 2 BAGS Sodium Chloride 1,000 mls @ 125 mls/hr 10/30/18 09:46 Normal Saline PRIMARY IV .Q8H DEL Sodium Chloride 25 mls @ 200 mls/hr 10/30/18 09:46 Normal Saline 0.9% IV .Post Infusion PRN No Primary IV for Flush ONLY Vancomycin HCl 1 gm/ Sodium 250 mls @ 250 mls/hr 10/30/18 13:30 Chloride IV Q8H DEL Levofloxacin/Dextrose 750 mg in 150 mls @ 100 mls/hr 10/30/18 10:00 Levaquin (Premix) IV Q24H [facility] Norepinephrine Bitartrate 8 mg 258 mls @ 15.48 mls/hr 10/30/18 10:00 / Dextrose IV .TITRATE DEL Protocol 8 MCG/MIN Lactobacillus Acidoph/Bulgaricus 1 tab 10/31/18 09:00 Lactinex PO DAILY DEL Lidocaine HCl 10 ml 10/30/18 09:46 Xylocaine Uro-Ject 2% TOPICAL ONCE PRN Discomfort catheter insertion Lidocaine HCl 0.5 ml 10/30/18 09:46 Lidocaine Buffered Inj SUBD ONCE PRN IV Starts Morphine Sulfate 15 mg 10/30/18 21:00 Ms Contin PO BID [facility] Multivitamins Therapeutic 1 tab 10/31/18 09:00 Thera Tab PO DAILY DEL Ondansetron HCl 4 mg 10/30/18 09:46 Zofran Inj IVP Q4H PRN NAUSEA / VOMITING Oxycodone HCl 5 mg 10/30/18 09:46 Oxyir Tab PO Q6H PRN Pain Prednisone 5 mg/ Prednisone 10 15 mg 10/31/18 09:00 mg PO DAILY [facility] Trazodone HCl 50 mg 10/30/18 21:00 Desyrel Tab PO BEDTIME DEL 8. Time, care, counseling and coordination of care for this discharge is greater than 30 minutes. Exam - Vitals Vital Signs: Vital Signs Temperature 97.9 F Temperature Source Oral Pulse Rate [Pulse Oximeter] 93 Pulse Rate 90 Respiratory Rate 16 Blood Pressure [Left Arm] 108/77 Blood Pressure 96/65 Pulse Ox 96 Oxygen Flow Rate 10 Oxygen Delivery Method Nasal Cannula Height 5 ft 5 in Weight 157 lb - General General Appearance: Cooperative, Mild Distress (Not breathing is unlabored rate, but definitely more confused today) - Eye Eye Exam: POSITIVE: No Scleral Icterus - ENT ENT Exam: POSITIVE: Mucous Membranes Moist - Neck Neck Exam: JVP is not Raised - Respiratory Respiratory Exam: POSITIVE: Breathing Non Labored, Crackles, Coarse Breath Sounds Additional Respiratory Exam Details: She is on Vapotherm at 10 L - Cardiovascular Cardiovascular Exam: POSITIVE: No Murmur, No Clicks, No Gallops, No Rubs, Tachycardia - GI/Abdominal GI/Abdominal Exam: POSITIVE: Normal Bowel Sounds, Non Tender, Non Distended, Soft - Extremities Extremities Exam: POSITIVE: No Clubbing Present, No Cyanosis Present, +1 Edema - Neurological Neurological Exam: POSITIVE: Alert, No Facial Droop, Speech Intact / Clear, Moves All Extremities Equally, Altered (More confused today as the day has gone on) Data Peritnent Studies: Laboratory Results 10/29/18 10/29/18 10/29/18 15:56 15:56 15:56 WBC 24.30 H RBC 4.38 Hgb 13.1 Hct 40.3 MCV 92.0 MCH 29.9 MCHC 32.5 L RDW Std Deviation 45.9 RDW Coeff of Dona 14.0 Plt Count 363 H MPV 8.5 Immature Gran % (Auto) 0.3 Neut % (Auto) 88.1 H Lymph % (Auto) 3.5 L [place] % (Auto) 8.0 Eos % (Auto) 0 Baso % (Auto) 0.1 Immature Gran # (Auto) 0.08 Neut # (Auto) 21.40 Lymph # (Auto) 0.84 [place] # (Auto) 1.94 H Eos # (Auto) 0.01 Baso # (Auto) 0.03 WBC Morphology Comment Normal morphology Plt Morphology Comment Normal morphology RBC Morph Comment Normal morphology PT 10.5 INR 1.03 VBG pH VBG pCO2 VBG HCO3 VBG Base Excess Sodium 139 Potassium 4.1 Chloride 96 L Carbon Dioxide 32 Anion Gap 11 BUN 14 Creatinine 0.8 Estimated GFR > 60 BUN/Creatinine Ratio 17.50 Glucose 145 H Mean Blood Glucose Hemoglobin A1c Calculated Osmolality 291.0 Lactic Acid Calcium 9.7 Magnesium 1.8 Total Bilirubin 0.7 D AST 19 ALT 32 Alkaline Phosphatase 98 Total Creatine Kinase < 20 L C-Reactive Protein 8.1 H Total Protein 7.4 Albumin 4.1 Globulin 3.3 Albumin/Globulin Ratio 1.20 L Serum HCG, Qual Ur Collection Type Urine Color Urine Clarity Urine pH Ur Specific [place] Urine Protein Urine Glucose (UA) Urine Ketones Urine Occult Blood Urine Nitrate Urine Bilirubin Urine Urobilinogen Ur Leukocyte Esterase Urine RBC Urine WBC Ur Squamous Epith Cells Ur Renal Epithelial Cell Urine Crystals Urine Bacteria Urine Casts Urine Mucus Urine Trichomonas Urine Yeast Ur Culture Indicated? Ur Strep pneumoniae Ag 10/29/18 10/29/18 10/29/18 15:56 15:56 16:12 WBC RBC Hgb Hct MCV MCH MCHC RDW Std Deviation RDW Coeff of Dona Plt Count MPV Immature Gran % (Auto) Neut % (Auto) Lymph % (Auto) [place] % (Auto) Eos % (Auto) Baso % (Auto) Immature Gran # (Auto) Neut # (Auto) Lymph # (Auto) [place] # (Auto) Eos # (Auto) Baso # (Auto) WBC Morphology Comment Plt Morphology Comment RBC Morph Comment PT INR VBG pH VBG pCO2 VBG HCO3 VBG Base Excess Sodium Potassium Chloride Carbon Dioxide Anion Gap BUN Creatinine Estimated GFR BUN/Creatinine Ratio Glucose Mean Blood Glucose Hemoglobin A1c Calculated Osmolality Lactic Acid 2.0 Calcium Magnesium Total Bilirubin AST ALT Alkaline Phosphatase Total Creatine Kinase C-Reactive Protein Total Protein Albumin Globulin Albumin/Globulin Ratio Serum HCG, Qual Negative Ur Collection Type Cath specimen Urine Color Yellow Urine Clarity Clear Urine pH 7.0 Ur Specific [place] 1.010 Urine Protein Negative Urine Glucose (UA) Negative Urine Ketones Negative Urine Occult Blood Trace-intact H Urine Nitrate Negative Urine Bilirubin Negative Urine Urobilinogen 0.2 Ur Leukocyte Esterase Negative Urine RBC 3-5 Urine WBC 3-5 Ur Squamous Epith Cells Few Ur Renal Epithelial Cell None Urine Crystals None Urine Bacteria None Urine Casts None Urine Mucus Rare Urine Trichomonas None Urine Yeast None Ur Culture Indicated? Culture not set Ur Strep pneumoniae Ag 10/29/18 10/29/18 10/29/18 16:24 18:00 21:02 WBC RBC Hgb Hct MCV MCH MCHC RDW Std Deviation RDW Coeff of Dona Plt Count MPV Immature Gran % (Auto) Neut % (Auto) Lymph % (Auto) [place] % (Auto) Eos % (Auto) Baso % (Auto) Immature Gran # (Auto) Neut # (Auto) Lymph # (Auto) [place] # (Auto) Eos # (Auto) Baso # (Auto) WBC Morphology Comment Plt Morphology Comment RBC Morph Comment PT INR VBG pH 7.42 VBG pCO2 52 VBG HCO3 33 H VBG Base Excess 9 H Sodium Potassium Chloride Carbon Dioxide Anion Gap BUN Creatinine Estimated GFR BUN/Creatinine Ratio Glucose Mean Blood Glucose Hemoglobin A1c Calculated Osmolality Lactic Acid 1.3 Calcium Magnesium Total Bilirubin AST ALT Alkaline Phosphatase Total Creatine Kinase C-Reactive Protein Total Protein Albumin Globulin Albumin/Globulin Ratio Serum HCG, Qual Ur Collection Type Urine Color Urine Clarity Urine pH Ur Specific [place] Urine Protein Urine Glucose (UA) Urine Ketones Urine Occult Blood Urine Nitrate Urine Bilirubin Urine Urobilinogen Ur Leukocyte Esterase Urine RBC Urine WBC Ur Squamous Epith Cells Ur Renal Epithelial Cell Urine Crystals Urine Bacteria Urine Casts Urine Mucus Urine Trichomonas Urine Yeast Ur Culture Indicated? Ur Strep pneumoniae Ag Negative 10/30/18 10/30/18 10/30/18 04:00 04:00 04:00 WBC 20.17 H RBC 3.52 L Hgb 10.5 L Hct 33.4 L MCV 94.9 MCH 29.8 MCHC 31.4 L RDW Std Deviation 47.1 RDW Coeff of Dona 14.2 Plt Count 238 MPV 8.0 Immature Gran % (Auto) 0.4 Neut % (Auto) 88.5 H Lymph % (Auto) 5.3 L [place] % (Auto) 5.7 Eos % (Auto) 0 Baso % (Auto) 0.1 Immature Gran # (Auto) 0.08 Neut # (Auto) 17.84 Lymph # (Auto) 1.07 [place] # (Auto) 1.14 H Eos # (Auto) 0.01 Baso # (Auto) 0.03 WBC Morphology Comment Normal morphology Plt Morphology Comment Normal morphology RBC Morph Comment Normal morphology PT INR VBG pH VBG pCO2 VBG HCO3 VBG Base Excess Sodium 136 Potassium 3.2 L Chloride 103 Carbon Dioxide 26 Anion Gap 7 BUN 10 Creatinine 0.7 Estimated GFR > 60 BUN/Creatinine Ratio 14.28 Glucose 106 Mean Blood Glucose Hemoglobin A1c Calculated Osmolality 280.0 Lactic Acid 1.5 Calcium 7.8 L Magnesium Total Bilirubin AST ALT Alkaline Phosphatase Total Creatine Kinase C-Reactive Protein Total Protein Albumin Globulin Albumin/Globulin Ratio Serum HCG, Qual Ur Collection Type Urine Color Urine Clarity Urine pH Ur Specific [place] Urine Protein Urine Glucose (UA) Urine Ketones Urine Occult Blood Urine Nitrate Urine Bilirubin Urine Urobilinogen Ur Leukocyte Esterase Urine RBC Urine WBC Ur Squamous Epith Cells Ur Renal Epithelial Cell Urine Crystals Urine Bacteria Urine Casts Urine Mucus Urine Trichomonas Urine Yeast Ur Culture Indicated? Ur Strep pneumoniae Ag 10/30/18 04:00 WBC RBC Hgb Hct MCV MCH MCHC RDW Std Deviation RDW Coeff of Dona Plt Count MPV Immature Gran % (Auto) Neut % (Auto) Lymph % (Auto) [place] % (Auto) Eos % (Auto) Baso % (Auto) Immature Gran # (Auto) Neut # (Auto) Lymph # (Auto) [place] # (Auto) Eos # (Auto) Baso # (Auto) WBC Morphology Comment Plt Morphology Comment RBC Morph Comment PT INR VBG pH VBG pCO2 VBG HCO3 VBG Base Excess Sodium Potassium Chloride Carbon Dioxide Anion Gap BUN Creatinine Estimated GFR BUN/Creatinine Ratio Glucose Mean Blood Glucose 106.807 Hemoglobin A1c 5.79 Calculated Osmolality Lactic Acid Calcium Magnesium Total Bilirubin AST ALT Alkaline Phosphatase Total Creatine Kinase C-Reactive Protein Total Protein Albumin Globulin Albumin/Globulin Ratio Serum HCG, Qual Ur Collection Type Urine Color Urine Clarity Urine pH Ur Specific [place] Urine Protein Urine Glucose (UA) Urine Ketones Urine Occult Blood Urine Nitrate Urine Bilirubin Urine Urobilinogen Ur Leukocyte Esterase Urine RBC Urine WBC Ur Squamous Epith Cells Ur Renal Epithelial Cell Urine Crystals Urine Bacteria Urine Casts Urine Mucus Urine Trichomonas Urine Yeast Ur Culture Indicated? Ur Strep pneumoniae Ag Procedures: [address] [facility]. [facility] [place] [address] PH: DD: [phone] FAX: [phone] ~DIAGNOSTIC IMAGING REPORT~ Patient: Lisa Hwang : 1985 Sex: F Age: 33 Exam Name: XR CXR 1VW Exam Date: 10/30/18 Report # : [id number] CPT Code: 52999 EMR/MR #: [id number] Ordering: STEPAN MOTA Admiting: STEPAN MOTA DO Primary: Josh Finnegan MD. Attending: STEPAN MOTA DO Signed AP CHEST X-RAY, 10/30/2018 7:52 AM : Clinical History: Increased O2 requirement. Previous Exam: 10/21/2018; 10/29/2018. Soft Tissues: No acute soft tissue abnormality. Bones: Normal. Heart: Normal heart. Lungs: Progressive consolidation has developed in the right upper lobe with new areas of consolidation in both lower lobes and probably also the lingular segment. Effusion(s): There may be a small left pleural effusion. Mediastinum: Normal mediastinum. Nodules: No pulmonary nodules. Reading: Interval development of bilateral lower lobe pneumonia with progressive consolidation of the right upper lobe pneumonia. Dictated By: 10/30/18 0831 YI MOREIRA MD. Signed By: 10/30/18 0847 YI MOREIRA MD. [address] [facility] [place] [address] PH: DD: [phone] FAX: [phone] ~DIAGNOSTIC IMAGING REPORT~ Patient: Lisa Hwnag : 1985 Sex: F Age: 33 Exam Name: CT Chest W Contrast Exam Date: 10/29/18 Report # : [id number] CPT Code: 71323 EMR/MR #: [id number] Ordering: TREVER SNOW Admiting: Primary: Josh Finnegan MD. Attending: Signed CT CHEST SCAN WITH IV CONTRAST, 10/29/2018 4:16 PM : Clinical History: Cough. Fever. Previous Exam: 09/09/2018. Technique: Scans from base of neck to lung bases with IV contrast. Non-MIPS and MIPS sagittal/coronal images generated. IV Contrast: 75 mL of Isovue 300. Base of Neck: Normal. Nodes: Normal axillary, supraclavicular, mediastinal, and hilar lymph nodes. Heart: Normal. No coronary artery calcifications. Aorta: Normal thoracic aorta. No aneurysm or dissection. Pulmonary Arteries: Normal. No pulmonary emboli or infarcts; no pulmonary hypertension. Lungs: Right upper lobe pneumonia involving primarily the anterior segment. Blebs are present in the left upper lobe without evidence of blebs or interstitial lung disease in any other lobe. Effusion(s): None. Nodules: None. Bony Structures: Normal visualized portions of ribs, sternum, scapulae, clavicles, and shoulders. Normal visualized portions of thoracic spine. Midthoracic dextroscoliosis. Limited Upper Abdomen: Normal adrenal glands, spleen, and visualized portions of the liver and pancreas. READIN. Right upper lobe pneumonia. 2. Left upper lobe blebs without evidence of chronic interstitial lung disease. The exact etiology for the blebs is uncertain. Dictated By: 10/29/18 1808 YI MOREIRA MD. Signed By: 10/29/18 1811 YI MOREIRA MD. [address] [facility] [place] [address] PH: DD: [phone] FAX: [phone] ~DIAGNOSTIC IMAGING REPORT~ Patient: Lisa Hwang : 1985 Sex: F Age: 33 Exam Name: CT Abdomen/Pelvis W Contrast Exam Date: 10/29/18 Report # : [id number] CPT Code: 18352 EMR/MR #: [id number] Ordering: TREVER SNOW Admiting: Primary: Josh Finnegan MD. Attending: Signed CT ABDOMEN SCAN WITH IV CONTRAST, 10/29/2018 4:16 PM : Clinical History: Vomiting. Crohn's disease. Previous Exam: 09/09/2018. IV Contrast: Same bolus of contrast used for the CT scan of the chest. Oral Contrast: No oral contrast ordered. Rectal Contrast: No rectal contrast ordered. Lungs: No infiltrate or effusion. Liver: Hepatomegaly with diffuse but irregular fatty infiltration. Gallbladder: Grossly normal. Adrenal Glands: Normal. Spleen: Normal. Pancreas: Normal. Kidneys: Normal size, shape, position and contour. No hydronephrosis or hydroureter. No renal or ureteral calculi. Masses: None. Lymph Nodes: Normal. Ascites: No ascites. Free Air: None. Spine: Normal lower thoracic and lumbar spine. READING: Hepatomegaly with diffuse but inhomogeneous fatty infiltration. CT PELVIS SCAN WITH IV CONTRAST, 10/29/2018 4:16 PM: Clinical History: See above. Previous Exam: 09/09/2018. Contrast: Same bolus used for CT scans of the chest and abdomen. Masses: No masses or enhancing lesions. Ascites: None. Free Air: None. Lymph Nodes: No adenopathy. Appendix: Normal. Small Bowel: Normal small bowel caliber without evidence of obstruction or is chemia. Colon: There is an anastomosis low in the pelvis involving the rectum. No typical colonic structures are visualized in this patient may have had a total colectomy. This impression should be correlated with the surgical history. Uterus: Normal. Ovaries: Normal. Bladder: Normal. Hernias: None. Bony Pelvis: Normal sacrum, pelvic bones, and hips. READIN. No colonic tissue can be identified except for the very distal portion of the rectum. This patient may have had a total colectomy and correlation with surgical operative notes or with the patient's history is recommended. There is no bowel obstruction noted. The loops of small bowel are unremarkable. 2. The remainder of the examination is normal. Dictated By: 10/29/18 1822 YI MOREIRA MD. Signed By: 10/29/18 1831 YI MOREIRA MD. [address] [place] [address] PH: DD: [phone] FAX: [phone] ~DIAGNOSTIC IMAGING REPORT~ Patient: Lisa Hwang : 1985 Sex: F Age: 33 Exam Name: CT Head WO Contrast Exam Date: 10/29/18 Report # : [id number] CPT Code: 19049 EMR/MR #: [id number] Ordering: TREVER SNOW Admiting: Primary: Josh Finnegan MD. Attending: Signed CT HEAD SCAN WITHOUT IV CONTRAST, 10/29/2018 4:12 PM : Clinical History: Headache. Previous Exam: None at this facility. Technique: Performed from the foramen magnum to vertex without IV contrast. Contrast Volume: None. 4th Ventricle: Normal. 3rd Ventricle: Normal. Lateral Ventricles: Normal. Sella: Normal size and normal pituitary gland. Cerebrum: Normal. There is no evidence of an acute subarachnoid hemorrhage or intraparenchymal hemorrhage. There is no acute bland infarct. Cerebellum: Normal. No cerebellopontine angle mass. Normal cerebellar tonsillar position. Brainstem: Normal. Atrophy: No atrophy. Extracerebral Mantles/Midline Shift: No extracerebral mantle or dural lesion. No midline shift. Sinuses: Normal. Skull: Intact. READING: Normal noncontrast CT head scan. No acute intracranial hemorrhagic focus is identified. Dictated By: 10/29/18 180 YI MOREIRA MD. Signed By: 10/29/18 1807 YI MOREIRA MD. Patient Problems - Patient Problem List (1) Sepsis Current Visit: Yes Status: Acute Code(s): A41.9 - Sepsis, unspecified organism Qualifiers: Sepsis type: sepsis due to unspecified organism Qualified Code(s): A41.9 - Sepsis, unspecified organism Category: Medical (2) Pneumonia Current Visit: Yes Status: Acute Code(s): J18.9 - Pneumonia, unspecified organism Qualifiers: Pneumonia type: due to unspecified organism Laterality: right Lung location: upper lobe of lung Qualified Code(s): J18.1 - Lobar pneumonia, unspecified organism Category: Medical (3) Immunocompromised due to corticosteroids Current Visit: Yes Status: Acute Code(s): Z79.52 - [facility] (current) use of systemic steroids Category: Medical (4) Crohns disease Current Visit: Yes Status: Chronic Code(s): K50.90 - Crohn's disease, unspecified, without complications Qualifiers: Gastrointestinal tract location: small intestine Digestive disease complication type: other complication Qualified Code(s): K50.018 - Crohn's disease of small intestine with other complication Category: Medical (5) History of pulmonary embolism Current Visit: Yes Status: Acute Code(s): Z86.711 - Personal history of pulmonary embolism Category: Medical (6) Hypokalemia Current Visit: Yes Status: Acute Code(s): E87.6 - Hypokalemia Category: Medical
[2018-10-30] MEDS ORDERED: LORazepam 2 MG/1 ML VIAL ONE (11:03)
[2018-10-30 11:11] VITALS: BP 137/80; TEMP 98.8; O2SAT 96
[2018-10-30] MEDS ORDERED: LORazepam 2 MG/1 ML VIAL IVP ONE (11:19)
--- NOTE | 2018-10-30 11:23 | DI ---
AP CHEST X-RAY, 10/30/2018 10:26 AM : Clinical History: Worsening pneumonia. Central line placement. Verification of catheter tip placement . Previous Exam: 10/30/2018 at 0810 hours. Soft Tissues: The central catheter is inserted from the right internal jugular approach and the montez ter tip is at the junction between the distal superior vena cava in the right atrium. This can be pul led back about 1-2 cm. Bones: Normal. Heart: Normal heart. Lungs: The consolidation bilaterally appears to have progressed even since the films obtained 2 hours earlier. No pneumothorax. Effusion(s): Small right pleural effusion. Mediastinum: Normal mediastinum. Readin. No pneumothorax following central line placement. The catheter can be withdrawn about 1-2 cm. 2. Worsening appearance of the right upper and bilateral lower lobe pneumonia since 2 hours earlier. There is a small right pleural effusion.
[2018-10-30] MEDS ORDERED: Cefepime Inj 2 GM in Sodium Chloride 0.9% 100 ML IV SCH (11:34)
--- NOTE | 2018-10-30 15:51 | PDOC ---
General Adult HPI - General Chief Complaint: General Medical Stated Complaint: cough, nausea and vomiting Date Seen by Provider: 10/29/18 Time Seen by Provider: 15:55 Source: POSITIVE: Patient, Other (Friend that accompanies patient) Exam Limitations: POSITIVE: No limitations Nurse's Notes Reviewed & Considered: Yes - History of Present Illness Initial Comment: The patient is a 33 year old female. Patient complains of nausea and vomiting for approximately 1 day. She states she's vomited 4 times. She states she has not tried to eat anything since yesterday evening. She states that she subjectively is been running a fever but has not taken her temperature. She also complains of a cough. Patient has a history of Crohn's disease and has had a total colectomy and has a J-pouch she states she had a tattoo to her left t horax posteriorly 2 days ago. She complains of head and abdominal pain and "I ache all over". She's been on [place] for the past 6 weeks due to pulmonary emboli, and she states she was also diagnosed with pneumonia 6 weeks ago. She is steroid dependent for her Crohn's disease; her Crohn's disease is treated by a data processor in [place]. Have you received a tetanus shot in the past 10 years?: Unknown Body Location Affected: REPORTS: Head (Headache), Chest (Cough), Abdomen (Nausea and vomiting and abdominal discomfort) Timing: REPORTS: Gradual, Getting Worse Duration: <24 hours (Approximately one day) Severity: Moderate Quality: REPORTS: "Pain" (Head and abdomen) Context: REPORTS: None, Other (Patient received a tattoo to her left posterior thorax 2 days ago and questions whether this might have something to do with her symptoms.) Modifying Factors: improves with: Coughing, Vomiting Similar Symptoms Previously: Yes (treated for pneumonia 6 weeks ago) Recent Care Received: REPORTS: Recently Seen, Treated by MD, Hospitalized Any Prior Injuries Related to Current Complaint?: No - Patient Home Medications Home Medications: Home Medications Ferrous Gluconate 325 mg PO DAILY #30 tab 06/22/17 nystatin-triamcinolone 100,000 unit/g-0.1 % topical cream 1 applic TOPICAL TID #60 g 03/19/18 hydrocortisone-pramoxine 2.5 %-1 % rectal cream 1 applic AR TID PRN #30 g 05/01/18 acetaminophen 500 mg tablet 500 mg PO Q6H PRN 07/25/18 escitalopram 20 mg tablet 20 mg PO QDAY #30 tab 07/25/18 lactobacillus combination no.8 3 billion cell capsule 3,000 mmu cells PO QDAY 07/25/18 loperamide 2 mg capsule 4 mg PO .daily PRN cap 07/25/18 multivitamin tablet 1 tab PO QAM 07/25/18 trazodone 50 mg tablet 50 mg PO QHS #60 tab 07/25/18 benzocaine 20 % mucosal paste 1 applic MUCOUS MEMBRANE QID PRN #30 g 08/25/18 prednisone 20 mg tablet 20 mg PO QDAY #7 tab 08/25/18 Apixaban [Eliquis] 5 mg PO BID #60 tab 09/11/18 folic acid 1 mg tablet 1 mg PO QDAY #1 tab 09/11/18 oxyCODONE IR Tab [OxyIR Tab] 1 tab PO Q6H PRN 10/23/18 Diazepam 5 mg PO BID 10/29/18 Morphine Sulfate [Morphine Sulfate ER] 15 mg PO BID 10/29/18 - Patient Allergies Allergies/Adverse Reactions: Allergies Allergy/AdvReac Type Severity Reaction Status Date / Time adalimumab [From Humira] Allergy SHORTNESS Verified 10/29/18 16:39 OF BREATH Past Medical History - heen HEENT History: Denies History Cardiovascular History: Other (please comment) Additional Cardiovasular History: MURMUR Respiratory History: Other (please comment) Additional Respiratory History: SWYER LANG SYNDROME Gastrointestinal History: GERD, Crohn's, Other (please comment) Additional Gastrointestinal History: has colitis, 04/19 had large colon removed, stoma placement W/ STOMA REVERSAL, G POUCH. ESOPHAGEAL SPASMS Genitourinary History: Denies History Endocrine History: Denies History Musculoskeletal History: Denies History Prosthesis or Implant: Yes (BREAST AUGMENTATION) Neurological History: Denies History Blood Disorders: Denies History Psychiatric History: Depression History of Sexually Transmitted Diseases: No Female Reproductive History: Denies History LMP: 10/09 Obstetrical History: Denies History Cancer History: Denies History In Past Year Been Physically Harmed or Verbally Threatened: No History of MDRO: Yes Other Type of MDRO: C DIFF History of Other Communicable Diseases: No Tobacco Use: Former Smoker Alcohol Use: Occasionally In the Past 12 Months, Have Used or Abuse Any Substance: None Previous Surgical History: Yes Type / Date of Surgery: BREAST AUGMENTATION/ TONSILLECTOMY. COLON RESECTION 05/20/18/APPY/RECTUM REMOVED, COLOSTOMY REVERSAL/G POUCH MADE WITH SMALL BOWEL Anesthesia Reactions: No Malignant Hyperthermia: No Significant Family History: No pertinent family hx Past Medical History Reviewed: Reviewed - No Changes ROS - Limitations ROS Limitations: No Limitations Constitution: REPORTS: Fever (Subjectively) Cardiovascular: REPORTS: Denies Cardiac Symptoms Respiratory: REPORTS: Cough Productive (Productive of mucoid sputum) Neurological: REPORTS: Denies Neuro Symptoms Gastrointestinal: REPORTS: Abdominal Pain, Nausea, Vomitting Endocrine: REPORTS: Denies Symptoms Musculoskeletal: REPORTS: Denies MS Symptoms Genitourinary: REPORTS: Denies Symptoms Eyes: REPORTS: Denies Symptoms ENT: REPORTS: Denies Symptoms Skin: REPORTS: Denies Skin Symptoms Lympathic: REPORTS: Denies Lympathic Symptoms Immunologic: POSITIVE: Denies Symptoms Psychiatric: POSITIVE: Denies Psych Symptoms General Adult Exam - General Appearance General Appearance: POSITIVE: Alert, Cooperative, No Acute Distress, No Evidence of Trauma, Other (Cushingoid facies) - HEENT HEENT: POSITIVE: Head Inspection Nml, Eyes Inspection Nml, Ears Inspection Nml, Nose Inspection Nml, Oral/Dental Inspect. Nml, Pharynx Inspect. Nml, PERRL, EOMI - Pupils Pupil Size: 3 mm: Bilateral (PERRLA) - Neck Neck: POSITIVE: Normal Inspection, Thyroid Normal. NEGATIVE: Thyromegaly, Lymphadenopathy, Stiff Neck, Kernig's, Brudzinski's Sign, Carotid Bruit - Respiratory Respiratory: POSITIVE: Breath Sounds Normal (Some rales right lateral thorax), Chest Non-Tender, Rales (Right lateral thorax) - Cardiovascular Cardiovascular: POSITIVE: Regular Rate & Rhythm, No Murmur, No Gallop, PMI Normal Peripheral Pulses: Radial (R): 2+, Radial (L): 2+ - Abdomen Abdomen: Soft: (All Quadrants), Normal Bowel Sounds: (All Quadrants), Denies Tenderness: (All Quadrants), No Splenomegaly: (All Quadrants), No Hepatomegaly: (All Quadrants), No Guarding: (All Quadrants), No Rebound: (All Quadrants), No Palpable Pulse: (All Quadrants), No Palpabale Mass: (All Quadrants), No Distention: (All Quadrants), No Rigidity: (All Quadrants) - Back Back: POSITIVE: Normal Inspection. NEGATIVE: CVA Tenderness, Thoracic Tenderness, Lumbosacral Tenderness - Skin Skin: POSITIVE: Normal Color, Warm, Dry, No Rash, Other (Recently applied large tattoo left posterior thorax noted. There is some mild erythema in some places along the margin of the tattoo. Nontender.) - Extremities Extremity: Non-Tender: (All Extremities), Normal ROM: (All Extremities), Normal Inspection: (All Extremities) - Neurological / Psychological Neurological: POSITIVE: Affect Apporpriate, Oriented X3, supervisor of way Normal As Tested, Motor Normal, Sensation Normal General Adult Progress - Results Reviewed by me Xrays/CTs/US Reviewed by me: Yes Discussed with Radiologist: Yes Radiology Findings: Chest x-ray and CT chest with IV contrast shows a right upper lobe pneumonia. CT abdomen shows no colonic tissue identified; otherwise normal. CT scan of head is normal. Lab Results:: Laboratory Results 10/29/18 10/29/18 10/29/18 15:56 15:56 15:56 WBC 24.30 H RBC 4.38 Hgb 13.1 Hct 40.3 MCV 92.0 MCH 29.9 MCHC 32.5 L RDW Std Deviation 45.9 RDW Coeff of Dona 14.0 Plt Count 363 H MPV 8.5 Immature Gran % (Auto) 0.3 Neut % (Auto) 88.1 H Lymph % (Auto) 3.5 L [place] % (Auto) 8.0 Eos % (Auto) 0 Baso % (Auto) 0.1 Immature Gran # (Auto) 0.08 Neut # (Auto) 21.40 Lymph # (Auto) 0.84 [place] # (Auto) 1.94 H Eos # (Auto) 0.01 Baso # (Auto) 0.03 WBC Morphology Comment Normal morphology Plt Morphology Comment Normal morphology RBC Morph Comment Normal morphology PT 10.5 INR 1.03 VBG pH VBG pCO2 VBG HCO3 VBG Base Excess Sodium 139 Potassium 4.1 Chloride 96 L Carbon Dioxide 32 Anion Gap 11 BUN 14 Creatinine 0.8 Estimated GFR > 60 BUN/Creatinine Ratio 17.50 Glucose 145 H Calculated Osmolality 291.0 Lactic Acid Calcium 9.7 Magnesium 1.8 Total Bilirubin 0.7 D AST 19 ALT 32 Alkaline Phosphatase 98 Total Creatine Kinase < 20 L C-Reactive Protein 8.1 H Total Protein 7.4 Albumin 4.1 Globulin 3.3 Albumin/Globulin Ratio 1.20 L Serum HCG, Qual Ur Collection Type Urine Color Urine Clarity Urine pH Ur Specific [place] Urine Protein Urine Glucose (UA) Urine Ketones Urine Occult Blood Urine Nitrate Urine Bilirubin Urine Urobilinogen Ur Leukocyte Esterase Urine RBC Urine WBC Ur Squamous Epith Cells Ur Renal Epithelial Cell Urine Crystals Urine Bacteria Urine Casts Urine Mucus Urine Trichomonas Urine Yeast Ur Culture Indicated? Ur Strep pneumoniae Ag 10/29/18 10/29/18 10/29/18 15:56 15:56 16:12 WBC RBC Hgb Hct MCV MCH MCHC RDW Std Deviation RDW Coeff of Dona Plt Count MPV Immature Gran % (Auto) Neut % (Auto) Lymph % (Auto) [place] % (Auto) Eos % (Auto) Baso % (Auto) Immature Gran # (Auto) Neut # (Auto) Lymph # (Auto) [place] # (Auto) Eos # (Auto) Baso # (Auto) WBC Morphology Comment Plt Morphology Comment RBC Morph Comment PT INR VBG pH VBG pCO2 VBG HCO3 VBG Base Excess Sodium Potassium Chloride Carbon Dioxide Anion Gap BUN Creatinine Estimated GFR BUN/Creatinine Ratio Glucose Calculated Osmolality Lactic Acid 2.0 Calcium Magnesium Total Bilirubin AST ALT Alkaline Phosphatase Total Creatine Kinase C-Reactive Protein Total Protein Albumin Globulin Albumin/Globulin Ratio Serum HCG, Qual Negative Ur Collection Type Cath specimen Urine Color Yellow Urine Clarity Clear Urine pH 7.0 Ur Specific [place] 1.010 Urine Protein Negative Urine Glucose (UA) Negative Urine Ketones Negative Urine Occult Blood Trace-intact H Urine Nitrate Negative Urine Bilirubin Negative Urine Urobilinogen 0.2 Ur Leukocyte Esterase Negative Urine RBC 3-5 Urine WBC 3-5 Ur Squamous Epith Cells Few Ur Renal Epithelial Cell None Urine Crystals None Urine Bacteria None Urine Casts None Urine Mucus Rare Urine Trichomonas None Urine Yeast None Ur Culture Indicated? Culture not set Ur Strep pneumoniae Ag 10/29/18 10/29/18 16:24 18:00 WBC RBC Hgb Hct MCV MCH MCHC RDW Std Deviation RDW Coeff of Dona Plt Count MPV Immature Gran % (Auto) Neut % (Auto) Lymph % (Auto) [place] % (Auto) Eos % (Auto) Baso % (Auto) Immature Gran # (Auto) Neut # (Auto) Lymph # (Auto) [place] # (Auto) Eos # (Auto) Baso # (Auto) WBC Morphology Comment Plt Morphology Comment RBC Morph Comment PT INR VBG pH 7.42 VBG pCO2 52 VBG HCO3 33 H VBG Base Excess 9 H Sodium Potassium Chloride Carbon Dioxide Anion Gap BUN Creatinine Estimated GFR BUN/Creatinine Ratio Glucose Calculated Osmolality Lactic Acid Calcium Magnesium Total Bilirubin AST ALT Alkaline Phosphatase Total Creatine Kinase C-Reactive Protein Total Protein Albumin Globulin Albumin/Globulin Ratio Serum HCG, Qual Ur Collection Type Urine Color Urine Clarity Urine pH Ur Specific [place] Urine Protein Urine Glucose (UA) Urine Ketones Urine Occult Blood Urine Nitrate Urine Bilirubin Urine Urobilinogen Ur Leukocyte Esterase Urine RBC Urine WBC Ur Squamous Epith Cells Ur Renal Epithelial Cell Urine Crystals Urine Bacteria Urine Casts Urine Mucus Urine Trichomonas Urine Yeast Ur Culture Indicated? Ur Strep pneumoniae Ag Negative CBC and BMP: 10/30/18 04:00 10/30/18 04:00 - Patient's Progress Pain Medication Addressed: POSITIVE: Yes (Patient given morphine sulfate 4 headache.) School/Work Release Addressed: POSITIVE: Not Applicable Re-Examine Time: 19:05 Re-Examine Comment: Patient given somewhat in excess of 1000 L of normal saline while in the emergency room. Blood cultures were drawn. 1 g of Invanz IV given. Case discussed with the hospitalist furnace combination analyst, Dr. Patel, and patient is admitted by Dr. Patel for further evaluation and treatment. Diagnosis is right upper lobe pneumonia and sepsis. Status: POSITIVE: Improved (On discharge blood pressure is 103/69 and her heart rate is 88. She is afebrile.), Re-Examined Antibiotics Given: Yes (Invanz 1 g IV) - Consult Consult (If Yes, Name of Consulting MD & Time Called): Yes (Dr. Patel, hospitalist, [id number]) Consulting MD will see pt:: POSITIVE: [facility] [place] Admit Counseled: POSITIVE: Patient, Family, RE: Lab Results, RE: Radiology Results, RE: DX, RE: Need for F/U Patient Care Time - Estimated PCT Patient Care Time (In Minutes): 75 Vital Signs - VS Reviewed Vital Signs Reviewed: Yes Discharge Clinical Impression: Pneumonia Qualifiers: Pneumonia type: due to unspecified organism Laterality: right Lung location: u pper lobe of lung Qualified Code(s): J18.1 - Lobar pneumonia, unspecified o rganism Crohns disease Qualifiers: Gastrointestinal tract location: small intestine Digestive disease complication type: other complication Qualified Code(s): K50.018 - Crohn's disease of small intestine with other complication Sepsis Qualifiers: Sepsis type: sepsis due to unspecified organism Qualified Code(s): A41.9 - Sepsis, unspecified organism Discharge Disposition: Admit to Inpatient Condition: Fair Date Decision to Admit to Inpatient: 10/29/18 Time Decision to Admit to Inpatient: 18:15
[2018-10-30] MEDS ORDERED: GUAIFENESIN 600 MG TABLET PO SCH (19:34)
[2018-10-30] MEDS ORDERED: MORPHINE SULFATE 15 MG ER TABLET PO SCH (21:00)
[2018-10-30] MEDS ORDERED: traZODone Tab 50 MG TAB PO SCH (21:00)
[2018-10-31] MEDS ORDERED: ASCORBIC ACID Chewable 500 MG TABLET PO SCH (09:00)
[2018-10-31] MEDS ORDERED: FOLIC ACID 1 MG TABLET PO SCH (09:00)
[2018-10-31] MEDS ORDERED: Multivitamin Tab 1 TAB PO SCH (09:00)
[2018-10-31] MEDS ORDERED: ACIDOPHILUS/BULGARICUS CHEWABLE TABLET PO SCH (09:00)
[2018-10-31] MEDS ORDERED: PREDNISONE PO SCH ×2 (09:00)
[2018-10-31] MEDS ORDERED: Levofloxacin 750 MG / 30 ML VIAL IV SCH (09:00)
[2018-10-31] MEDS ORDERED: FERROUS GLUCONATE 324 MG TABLET PO SCH (09:00)
[2018-10-31] MEDS ORDERED: ESCITALOPRAM 10 MG TABLET PO SCH (09:00)
== END 2018-10-30 11:43 | disposition short-term general hospital (02) | DRG 193 ==
LOC: ER 15:30 → MED/SURG 19:28 → ICU 10-30 09:00
PROVIDERS: ADMIT Family Medicine; ATTEND Family Medicine

== ENCOUNTER 2018-11-08 03:38 | Inpatient (IN) ==
--- NOTE | 2018-11-08 04:14 | PDOC ---
General Adult HPI - General Chief Complaint: General Medical Stated Complaint: FEVER, N/V Date Seen by Provider: 11/08/18 Time Seen by Provider: 03:50 Source: POSITIVE: Patient Exam Limitations: POSITIVE: No limitations, Intoxication Nurse's Notes Reviewed & Considered: Yes - Record Incomplete - History of Present Illness Initial Comment: 33-year-old female presents emergency department with increased lethargy and fatigue. She reports chills and subjective fever at home. She states she checked her temperature and it was 99. Patient states she was recently admitted to this hospital and subsequently transferred to a tertiary care facility in [place]. She was admitted with sepsis and pneumonia. She is currently on antib iotics of ciprofloxacin. When she presented to the emergency department she was somnolent but arousable with oxygen saturations in the 70s on room air. Patient has taken 2 oxycodone and her fentanyl patch in the past 12 hours. She has not had any diarrhea. She does report 3 episodes of vomiting and nausea for the past 12 hours. She also reports having painful urination yesterday. Have you received a tetanus shot in the past 10 years?: Unknown Timing: REPORTS: Gradual Duration: <24 hours Severity: Moderate Quality: REPORTS: Aching, Fullness Similar Symptoms Previously: Yes (patient recently has been hospitalized with sepsis and associated pneumonia) Recent Care Received: REPORTS: Hospitalized - Patient Home Medications Home Medications: Home Medications Ferrous Gluconate 325 mg PO DAILY #30 tab 06/22/17 nystatin-triamcinolone 100,000 unit/g-0.1 % topical cream 1 applic TOPICAL TID #60 g 03/19/18 hydrocortisone-pramoxine 2.5 %-1 % rectal cream 1 applic IN TID PRN #30 g 05/01/18 acetaminophen 500 mg tablet 500 mg PO Q6H PRN 07/25/18 escitalopram 20 mg tablet 20 mg PO QDAY #30 tab 07/25/18 loperamide 2 mg capsule 4 mg PO .daily PRN cap 07/25/18 benzocaine 20 % mucosal paste 1 applic MUCOUS MEMBRANE QID PRN #30 g 08/25/18 Apixaban [Eliquis] 5 mg PO BID #60 tab 09/11/18 folic acid 1 mg tablet 1 mg PO QDAY #1 tab 09/11/18 oxyCODONE IR Tab [OxyIR Tab] 1 tab PO Q6H PRN 10/23/18 biotin 1,000 mcg chewable tablet 1,000 mcg PO QDAY 11/07/18 ciprofloxacin 250 mg tablet 250 mg PO BID 11/07/18 dexlansoprazole 60 mg capsule,biphase delayed release 60 mg PO QDAY 11/07/18 fentanyl 25 mcg/hr transdermal patch 1 patch TRANSDERM Q72H 11/07/18 hyoscyamine sulfate 0.125 mg tablet 0.125 mg PO QID 11/07/18 lactobacillus combination no.8 3 billion cell capsule 3,000 mmu cells PO QDAY 11/07/18 multivitamin tablet 1 tab PO QAM 11/07/18 ondansetron 4 mg disintegrating tablet 4 mg PO TID PRN 11/07/18 prednisone 20 mg tablet 15 mg PO QDAY tab 11/07/18 trazodone 50 mg tablet 100 mg PO QHS tab 11/07/18 - Patient Allergies Allergies/Adverse Reactions: Allergies Allergy/AdvReac Type Severity Reaction Status Date / Time adalimumab [From Humira] Allergy SHORTNESS Verified 11/08/18 03:43 OF BREATH ibuprofen [From Motrin IB] AdvReac Other : Verified 11/08/18 03:43 See Comment Past Medical History - heen HEENT History: Denies History Cardiovascular History: Other (please comment) Additional Cardiovasular History: MURMUR Respiratory History: Other (please comment) Additional Respiratory History: SWYER LANG SYNDROME Gastrointestinal History: GERD, Crohn's, Other (please comment) Additional Gastrointestinal History: has colitis, 04/19 had large colon removed, stoma placement W/ STOMA REVERSAL, G POUCH. ESOPHAGEAL SPASMS Genitourinary History: Denies History Endocrine History: Denies History Musculoskeletal History: Denies History Prosthesis or Implant: Yes (BREAST AUGMENTATION) Neurological History: Denies History Blood Disorders: Denies History Psychiatric History: Depression History of Sexually Transmitted Diseases: No Cancer History: Denies History History of MDRO: Yes Other Type of MDRO: C DIFF History of Other Communicable Diseases: No Alcohol Use: Occasionally In the Past 12 Months, Have Used or Abuse Any Substance: None Previous Surgical History: Yes Type / Date of Surgery: BREAST AUGMENTATION/ TONSILLECTOMY. COLON RESECTION 05/20/18/APPY/RECTUM REMOVED, COLOSTOMY REVERSAL/G POUCH MADE WITH SMALL BOWEL Anesthesia Reactions: No Malignant Hyperthermia: No Significant Family History: No pertinent family hx ROS - Limitations ROS Limitations: Clinical Condition Constitution: REPORTS: Chills, Fever (Subjective fever) Cardiovascular: REPORTS: Denies Cardiac Symptoms Respiratory: REPORTS: Denies Resp Symptoms Neurological: REPORTS: Confusion Gastrointestinal: REPORTS: Nausea, Vomitting, Other (Distention) Endocrine: REPORTS: Fatigue Musculoskeletal: REPORTS: Denies MS Symptoms Genitourinary: REPORTS: Dysuria. DENIES: Discharge, Flank Pain, Hematuria, Difficulty Urinating Eyes: REPORTS: Denies Symptoms ENT: REPORTS: Denies Symptoms Skin: REPORTS: Denies Skin Symptoms Lympathic: REPORTS: Denies Lympathic Symptoms General Adult Exam - General Appearance General Appearance: POSITIVE: Anxious, Lethargic, Mild Distress - HEENT HEENT: POSITIVE: PERRL, EOMI, Dry Mucous Membranes - Pupils Pupil Size: 2 mm: Bilateral - Neck Neck: POSITIVE: Normal Inspection, Thyroid Normal. NEGATIVE: Thyromegaly, Lymphadenopathy, Stiff Neck - Respiratory Respiratory: POSITIVE: Chest Non-Tender, Rhonchi. NEGATIVE: Wheezes, Rales - Cardiovascular Cardiovascular: POSITIVE: Regular Rate & Rhythm, No Murmur Peripheral Pulses: Radial (R): 2+, Radial (L): 2+, Dorsalis-pedis (R): 2+, Dorsalis-pedis (L): 2+ - Abdomen Abdomen: Soft: (All Quadrants), Normal Bowel Sounds: (All Quadrants), Denies Tenderness: (All Quadrants), No Splenomegaly: (All Quadrants), No Hepatomegaly: (All Quadrants), No Guarding: (All Quadrants), No Rebound: (All Quadrants), No Palpable Pulse: (All Quadrants), No Palpabale Mass: (All Quadrants), Distention: (All Quadrants) - Back Back: POSITIVE: Normal Inspection. NEGATIVE: CVA Tenderness - Skin Skin: POSITIVE: Normal Color, Warm, No Rash. NEGATIVE: Cyanosis - Extremities Extremity: Non-Tender: (All Extremities), Normal ROM: (All Extremities), Normal Inspection: (All Extremities) - Neurological / Psychological Neurological: POSITIVE: Affect Apporpriate, Oriented X3, Motor Normal, Sensation Normal General Adult Progress - Results Reviewed by me Xrays/CTs/US Reviewed by me: Yes Discussed with Radiologist: No Radiology Findings: Residual opacity in RUL with improvement with 2 small areas of cavitation within opacity which are new compared to prior ct. opacity in left lung base-atelectasis versus infiltrate; small pleural effusions; heterogenous gallbladder with suspected wall thickening and pericholcystic fluid. Lab Results Reviewed by Me: Yes Lab Results:: Laboratory Results 11/08/18 11/08/18 11/08/18 04:20 04:20 04:20 WBC 17.13 H RBC 3.14 L Hgb 9.2 L Hct 29.2 L MCV 93.0 MCH 29.3 MCHC 31.5 L RDW Std Deviation 44.7 RDW Coeff of Dona 13.6 Plt Count 453 H MPV 8.3 Immature Gran % (Auto) 1.6 Neut % (Auto) 80.4 H Lymph % (Auto) 13.1 [place] % (Auto) 4.6 L Eos % (Auto) 0.1 Baso % (Auto) 0.2 Immature Gran # (Auto) 0.28 Neut # (Auto) 13.77 Lymph # (Auto) 2.24 [place] # (Auto) 0.79 Eos # (Auto) 0.02 Baso # (Auto) 0.03 WBC Morphology Comment Normal morphology Plt Morphology Comment Normal morphology RBC Morph Comment Normal morphology VBG pH VBG pCO2 VBG HCO3 VBG Base Excess Sodium 136 Potassium 4.5 Chloride 98 Carbon Dioxide 30 Anion Gap 8 BUN 25 H Creatinine 2.0 H Estimated GFR 29 BUN/Creatinine Ratio 12.50 Glucose 173 H Calculated Osmolality 289.0 Lactic Acid 2.1 Calcium 8.6 L Total Bilirubin 0.2 L AST 113 H ALT 118 H D Alkaline Phosphatase 104 Total Protein 5.4 L Albumin 3.0 L Globulin 2.4 L Albumin/Globulin Ratio 1.20 L 11/08/18 04:45 WBC RBC Hgb Hct MCV MCH MCHC RDW Std Deviation RDW Coeff of Dona Plt Count MPV Immature Gran % (Auto) Neut % (Auto) Lymph % (Auto) [place] % (Auto) Eos % (Auto) Baso % (Auto) Immature Gran # (Auto) Neut # (Auto) Lymph # (Auto) [place] # (Auto) Eos # (Auto) Baso # (Auto) WBC Morphology Comment Plt Morphology Comment RBC Morph Comment VBG pH 7.40 VBG pCO2 52 VBG HCO3 32 H VBG Base Excess 7 H Sodium Potassium Chloride Carbon Dioxide Anion Gap BUN Creatinine Estimated GFR BUN/Creatinine Ratio Glucose Calculated Osmolality Lactic Acid Calcium Total Bilirubin AST ALT Alkaline Phosphatase Total Protein Albumin Globulin Albumin/Globulin Ratio CBC and BMP: 11/08/18 04:20 11/08/18 04:20 - Patient's Progress Pain Medication Addressed: POSITIVE: Not Applicable Re-Examine Time: 04:45 Re-Examine Comment: Patient continues to be hypoxic despite 4L oxygen via nasal cannula. I am conerned she could be fluid overloaded and therefore a bedside cxr was obtained. This by my interpretation shows no pleural effusions and mild pulmonary vascular congestion. I do not feel this gives a reason for her hypoxia. Will give 1 mg narcan as patient's CO2 is elevated with normal pH consistent with CO2 retention which can be secondary to too much narcotic ingestion. Re-Examine Time:: 05:10 Re-Examine Comment: Patient's oxygen saturations and blood pressure came up after narcan. Which leads me to believe that some of the patient's hypoxia and hypotension today are due to narcotic overdose. Patient's WBC, creatinine and lfts are all elevated compared with yesterdays labs. Dose of rocephin given in case patient is septic from unclear source at this time. Status: POSITIVE: Unchanged MDM / ED Course: 33-year-old female presents to the emergency department with acute hypoxia and oxygen saturations of 70s and hypotension with systolic blood pressures in the 80s. Patient was recently admitted to this hospital and diagnosed with pneumon ia and transferred to a tertiary care facility in [place]. She was recently released from this tertiary care facility in [place] and has been at home and doing relatively "well". Her mother brings her into the emergency department early this morning because she is not "feeling well". The mother states that the patient has been very sleepy since yesterday and was falling asleep during lunch while they were out to eat and spent the majority of the rest of the day sleeping. Patient does report she has had 3 episodes of vomiting since yesterday. Patient does report though that she was able to take her oxycodone (2 tablets) and has been wearing her fentanyl patch. Upon patient's presentation to the emergency department she was placed on oxygen and her oxygen saturations improved. An IV line was established after multiple attempts by nursing staff. Blood cultures were ordered and drawn. Patient was given a bolus of lactated Ringer's. I did not give her a 30 mL per kilo bolus as I am concerned that she is slightly fluid overloaded already as she is reporting abdominal distention and swelling in her ankles. I did perform a portable chest x-ray and there is infiltrate noted bilaterally but no large pleural effusions. There is also some atelectasis noted. This was by my interpretation. After blood cultures were drawn I did order the patient gram of Rocephin as she does meet sepsis criteria. She is on ciprofloxacin as an outpatient. She states she has been taking this medication. Labs were performed today and are noted in EMR. Patient's leukocytosis has worsened some since yesterday when she had labs checked as an outpatient. Her kidney function is also diminished since yesterday. She also has mild elevation of her AST and ALTs since yesterday. Patient was given 1 mg of Narcan while in the emergency department and her oxygen saturations and blood pressure immediately improved. CT imaging of her chest abdomen and pelvis were performed. CT the chest shows residual opacity in right upper lobe with improvement although there are 2 small areas of cavitation within the opacity which are new compared to prior CT which are compatible with pneumonia with cavitation. There is also opacity in left middle lung base which may represent atelectasis versus pneumonia. There are also small pleural effusions. CT of the abdomen and pelvis shows heterogeneous gallbladder with suspected wall thickening and pericholecystic fluid acute cholecystitis is not excluded. There is a small fat-containing umbilical hernia and hepatomegaly with periportal edema noted. All of these results were discussed with the patient and her mother. I recommended admission to the hospital and they are amenable to this plan. I discussed the case with Dr. Patel, hospitalist, who ac cepted the patient for admission. Patient was subsequently admitted to the floor in stable with guarded condition. Antibiotics Given: Yes Quality Measure Initiative: CAP: POSITIVE: SaO2, VS, MSE, Antibiotic(s), BC, CXR or CT - Consult Counseled: POSITIVE: Patient, Family, RE: Lab Results, RE: Radiology Results, RE: DX Patient Care Time - Estimated PCT Patient Care Time (In Minutes): 100 Vital Signs - Recent Vital Signs Vital Signs: Vital Signs (Last 8 hours) Temp Pulse Pulse Resp BP BP Pulse Ox 11/08/18 05:36 22 11/08/18 05:35 92 17 94 11/08/18 05:34 91 18 94 11/08/18 05:33 91 17 111/83 94 11/08/18 05:32 91 17 111/83 93 11/08/18 05:31 94 21 92 11/08/18 05:30 91 19 92 11/08/18 05:25 97.8 F 11/08/18 05:15 104 H 22 91 11/08/18 05:00 30 H 11/08/18 04:45 86 13 90 11/08/18 04:30 16 11/08/18 04:26 11 L 11/08/18 03:39 97.9 F 100 18 81/61 73 - VS Reviewed Vital Signs Reviewed: Yes Critical Care Note - Critical Care Note Total Time (mins): 45 Critical Care: Recurrent Physical Assessment Required, Shock, Respiratory Failure, Circulatory Failure Risk, Life Threatening Scenario, Multiple Organ Systems Threatened / At Risk History Source: Patient, Family Discussion with Family: I discussed all results and plan with family. They expressed understanding. Discussion with Drum Tester: Discussed case with Dr. Patel, he will admit patient. Comments: Critical care time is excluding any other billable procedures. Discharge Clinical Impression: Hypotension, Hypoxia, Acute kidney failure, Elevated LFTs, Pneumonia, Opiate dependence, continuous, Overdose of opiate or related narcotic Discharge Disposition: Admit to Inpatient Condition: Fair Follow Up With: Josh Finnegan [Primary Care Provider] - Care Transferred To: Dr. Patel Date Decision to Admit to Inpatient: 11/08/18 Time Decision to Admit to Inpatient: 07:00
[2018-11-08] MEDS ORDERED: NALOXONE 1 MG/1 ML - 2 ML ONE (04:19)
[2018-11-08] MEDS ORDERED: ONDANSETRON 4 MG/2 ML VIAL IVP ONE (04:32)
[2018-11-08] MEDS ORDERED: Lactated Ringers 1,000 ML PRIMARY IV ONE (04:32)
[2018-11-08 04:45] LABS: BASOPHILS # (AUTO) 0.03 10*3/UL; BASOPHILS % (AUTO) 0.2 % (0-1); EOSINOPHILS # (AUTO) 0.02 10*3/UL; EOSINOPHILS % (AUTO) 0.1 % (0-8); Hematocrit [HCT] 29.2 % (37.0-47.0); Hemoglobin [HGB] 9.2 g/dL (12.0-16.0); LYMPHOCYTES # (AUTO) 2.24 10*3/uL; MEAN CORPUSCULAR HEMOGLOBIN 29.3 PG (27-31); MEAN CORPUSCULAR HGB CONC 31.5 g/dL (33-37); MEAN PLATELET VOLUME 8.3 FL (7.4-12.2); MONOCYTES # (AUTO) 0.79 10*3/UL (0.3-0.8); MONOCYTES % (AUTO) 4.6 % (5-15); NEUTROPHILS # (AUTO) 13.77 10*3/UL; NEUTROPHILS % (AUTO) 80.4 % (50-80); RED BLOOD COUNT 3.14 10^6/uL (4.20-5.40)
[2018-11-08 04:51] LABS: VENOUS PH 7.4 (7.32-7.42)
[2018-11-08] MEDS ORDERED: NALOXONE 1 MG/1 ML - 2 ML IVP ONE (04:51)
[2018-11-08 04:54] LABS: BUN/CREATININE RATIO 12.5 (6-20)
[2018-11-08 04:57] LABS: PLATELET MORPHOLOGY COMMENT NORMAL MORPHOLOGY (NORM); RBC MORPHOLOGY COMMENT NORMAL MORPHOLOGY (NORM); WBC MORPHOLOGY COMMENT NORMAL MORPHOLOGY (NORM)
[2018-11-08] MEDS ORDERED: cefTRIAXone Inj 1 GM in Sodium Chloride 0.9% 100 ML IV ONE ×2 (05:07→10:45)
[2018-11-08] MEDS ORDERED: cefTRIAXone 1 GM VIAL ONE (05:09)
[2018-11-08] MEDS ORDERED: Sodium Chloride 0.9% 100 ML IV ONE (05:10)
--- NOTE | 2018-11-08 06:30 | DI ---
EXAM: CT Abdomen and Pelvis Without Intravenous Contrast CLINICAL HISTORY: Hypotension, fullness of abdomen, nausea, vomit. TECHNIQUE: Axial computed tomography images of the abdomen and pelvis without intravenous contrast. Coronal and sagittal reformatted images were created and reviewed. COMPARISON: CT dated 10/29/2018. FINDINGS: ABDOMEN: Liver: Hepatomegaly with periportal edema, nonspecific. Liver measures 22.7 in craniocaudal dimension. Gallbladder and bile ducts: Heterogeneous gallbladder with suspected sludge, wall thickening and pericholecystic fluid. No significant biliary dilation. Pancreas: Unremarkable. No ductal dilation. No adjacent inflammatory changes. Spleen: Unremarkable. No splenomegaly. Adrenals: Unremarkable. No mass. Kidneys and ureters: Unremarkable. No obstructing calculi. No hydronephrosis. Stomach and bowel: Stable postsurgical changes of rectum and possible colectomy. No evidence of bowel obstruction or free air. PELVIS: Appendix: Appendix not visualized and is likely surgically absent. Bladder: Unremarkable. No calculi or wall thickening. Reproductive: Unremarkable as visualized. ABDOMEN and PELVIS: Intraperitoneal space: Small scattered ascites, new. No free air. Bones/joints: No acute fracture. No dislocation. Soft tissues: Small fat-containing umbilical hernia with density surrounding umbilicus. Vasculature: Unremarkable. No abdominal aortic aneurysm. Lymph nodes: Unremarkable. No enlarged lymph nodes. IMPRESSION: 1. Heterogeneous gallbladder with suspected wall thickening and pericholecystic fluid. Acute cholecystitis is not excluded. Recommend right upper quadrant ultrasound to further assess. 2. Small fat-containing umbilical hernia with density surrounding umbilicus. Correlate for associated symptoms. 3. Hepatomegaly with periportal edema, nonspecific. 4. Small scattered ascites, new compared to prior CT. 5. Postsurgical changes of rectum. No evidence of bowel obstruction or free air.
--- NOTE | 2018-11-08 06:35 | DI ---
EXAM: CT Chest Without Intravenous Contrast CLINICAL HISTORY: Hypotension and hypoxia. TECHNIQUE: Axial computed tomography images of the chest without intravenous contrast. Coronal and sagittal reformations provided. COMPARISON: CT dated 10/29/2018. FINDINGS: Lungs: Residual opacity in right upper lobe with improvement although there are 2 small areas of cavitation within opacity which are new compared to prior CT. Stable cystic changes in the left lung. Opacity at left medial lung base which may represent atelectasis. Pleural space: Small pleural effusions. No pneumothorax. Heart: Cardiac size within normal limits. No pericardial effusion. Bones/joints: Unremarkable. No acute fracture. No dislocation. Soft tissues: Breast implants. Vasculature: Unremarkable. No thoracic aortic aneurysm. Lymph nodes: No significant lymphadenopathy. IMPRESSION: 1. Residual opacity in right upper lobe with improvement although there are 2 small areas of cavitation within opacity which are new compared to prior CT. Findings are compatible with pneumonia with cavitation. Recommend follow-up following treatment to ensure resolution. 2. Opacity at left medial lung base which may represent atelectasis although infiltrate not excluded. 3. Stable cystic changes in the left lung. Recommend attention on follow-up imaging. 4. Small pleural effusions.
--- NOTE | 2018-11-08 07:59 | DI ---
XR CXR 1VW,11/08/2018 4:41 AM: Clinical History: Hypoxia Previous Exam: October 30, 2018 Findings: A single frontal radiograph of the chest is obtained, and demonstrate some residual airspace disease within the right midlung field. Overlying EKG leads are seen. The cardiomediastinum is unremarkable. Overlying EKG leads are seen. Impression: Improvement of airspace disease within the right midlung field with some mild persisting airspace dis ease. Recommend followup imaging after treatment to document resolution.
--- NOTE | 2018-11-08 08:01 | DI ---
US Abdomen Limited,11/08/2018 6:46 AM: Clinical History: Nausea. Previous Exam: None at this facility. Findings: Multiple grayscale and color Doppler sonographic images are obtained through the right upper quadrant , and demonstrate normal hepatic parenchyma. Visualized portions of the pancreas are unremarkable. There is thickening of the gallbladder wall which measures 9 mm. Negative sonographic Lucia's sign i s obtained. The common bile duct measures 6 mm. The right kidney measures 10.7 cm in length without hydronephrosis nor nephrolithiasis. Visualized po rtions of the aorta and inferior vena cava are unremarkable. Impression: Thickened gallbladder wall measuring 9 mm in thickness without a definite sonographic Lucia's sign. This is an abnormal appearance of the gallbladder and is still worrisome for acute cholecystitis. Rec yelitza surgical consultation.
[2018-11-08] MEDS ORDERED: LIDOCAINE W/ SODIUM BICARB 0.5 ML SYR SUBD PRN ×2 (09:05→15:57)
[2018-11-08] MEDS ORDERED: PRAMOXINE HCL PR PRN (09:05)
[2018-11-08] MEDS ORDERED: oxyCODONE IR Tab 5 MG TAB PO PRN (09:05)
[2018-11-08] MEDS ORDERED: BENZOCAINE Mucous Membrane PRN (09:05)
[2018-11-08] MEDS ORDERED: BIOTIN 1000 MCG PO SCH (09:05)
[2018-11-08] MEDS ORDERED: [UNRECOGNIZED DRUG - OTHER] PR PRN (09:05)
[2018-11-08] MEDS ORDERED: Loperamide Tab 2 MG TABLET PO PRN (09:05)
[2018-11-08] MEDS ORDERED: CALCIUM CARBONATE 500 MG (TUMS) CHEWABLE TABLET PO PRN (09:05)
[2018-11-08] MEDS ORDERED: Apixaban 5 MG TABLET PO SCH (09:05)
[2018-11-08] MEDS ORDERED: ONDANSETRON 4 MG/2 ML VIAL IVP PRN (09:05)
[2018-11-08] MEDS ORDERED: ACETAMINOPHEN 325 MG TABLET PO PRN (09:05)
[2018-11-08] MEDS ORDERED: cefTRIAXone Inj 2 GM in Sodium Chloride 0.9% 100 ML IV SCH (09:05)
[2018-11-08] MEDS ORDERED: HYOSCYAMINE SULFATE 0.125 MG PO SCH (09:05)
[2018-11-08] MEDS: Sodium Chloride 0.9% 1,000 ML PRIMARY IV SCH (11:14)
[2018-11-08] MEDS: metroNIDAZOLE 500mg (Premix) 500 MG/100 ML BAG IV SCH ×2 (11:14→17:14)
[2018-11-08] MEDS: Acetaminophen 1000mg Inj 1,000 MG/100 ML VIAL IV PRN ×2 (11:39→19:38)
[2018-11-08] MEDS ORDERED: CIPROFLOXACIN HCL 250 MG PO SCH ×2 (14:00→16:00)
[2018-11-08] MEDS: predniSONE Tab 10 MG TAB PO SCH (15:56)
[2018-11-08] MEDS: PANTOPRAZOLE 40 MG TABLET PO SCH (15:56)
[2018-11-08] MEDS: ESCITALOPRAM 10 MG TABLET PO SCH (15:57)
[2018-11-08] MEDS: ACIDOPHILUS/BULGARICUS CHEWABLE TABLET PO SCH (15:57)
[2018-11-08] MEDS: Multivitamin Tab 1 TAB PO SCH (15:57)
[2018-11-08] MEDS: CIPROFLOXACIN HCL 250 MG PO SCH ×2 (15:59→21:11)
[2018-11-08] MEDS ORDERED: Nasal Sanitizer POPSWAB ampule 3 AMP (Nozin) PREOP DOSE ENOS SCH (16:00)
--- NOTE | 2018-11-08 16:10 | CONSULT ---
Consult Note - Consult Consult Date: 11/08/18 Reason for Consult: PreOp Consulation : General Surgery Requesting Physician: Dr. Dawson Primary Care Provider: Josh Finnegan MD - History of Present Illness History of Present Illness: The patient is a 33-year-old female with multiple medical problems whom I am asked to see regarding her gallbladder. Patient was diagnosed with ulcerative colitis in March 2017. We could not get control of her disease with multiple oral medications. 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 She had an ileostomy in place. In a staged fashion she's recently had a pouch constructed at the [facility]. That was finished in January 2018. She has had chronic pouchitis and been on prednisone and Cipro. In August she had a pulmonary embolism from an upper extremity DVT. She had a pneumonia at that time as well. 2 weeks ago she had a recurrent pneumonia and was septic. She was transferred to [facility]. She was treated with Zosyn and vancomycin. She just got home on Monday. She was on Cipro twice a day. She has felt bloated and distended. She was admitted early this morning with multiple episodes of nausea and vomiting over the prior 24 hours. She did not have more than her usual amount of abdominal pain. On 10/29/[address] of her abdomen and her gallbladder looked normal. This morning she has a thickened gallbladder which appears to have sludge. Ultrasound shows a thick-walled gallbladder with pericholecystic fluid. The wall is up to 9 mm thick. The common bile duct is normal at 6 mm. Also noted on the CT is fluid around her liver. CT of the chest shows a persisting cavitary pneumonia which is improved from prior. There is a small pleural effusion. Patient has been told that she has a bad gallbladder. She's been told in the past she has sludge in her gallbladder will need to be removed. I had a discussing with the patient and her father that is difficult to tell whether this is potentially reactive fluid around her gallbladder from the chest process or if she does have acute inflammation of the gallbladder without stones. I think without looking it would be impossible to tell. The patient wishes to proceed with cholecystectomy at this time. She understands she is at higher than normal risk for complications and for open surgery. She accepts. Review of Systems - Gastrointestinal Gastrointestinal / Abdominal: REPORTS: Nausea, Vomiting, Diarrhea, Abdominal Pain, Poor Appetite, Bloating, Other, See HPI Past Medical History Medical History: 1. Chronic ulcerative colitis status post colectomy, ileostomy and reversal with pouch creation. Her disease also caused ulceration in her mouth and the small intestine she was tried on Humira but it didn't work she end up up with an infection. At one point in time they will try Stelara. Her GI specialist is Dr. Renner in [place]. 2. Pneumonia July,. Ongoing pneumonia at this time. 3. History of Pouchitis on recently changed on antibiotics for metronidazole, but not sure the name of the new antibiotic.. 4. History of Swyer-Misael syndrome. 5. History of a pulmonary embolism, on Eliquis expected through January of this year, minimum Surgical History: 1. Breast augmentation. 2. Tonsillectomy and adenoidectomy. 3. Colon resection as noted above. Pertinent Family History: Parents are described as healthy. Her sister has pots syndrome Past Social History: Used to smoke doesn't drink no drugs. Has 1 tattoo that she actually got yesterday. Not . No children. 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 Tobacco Use: Never Smoker In the Past 12 Months, Have Used or Abuse Any of the Following Substance: None Medication / Allergies Home Medications: Home Medications Medication Instructions Recorded Confirmed Type Ferrous Gluconate 325 mg PO DAILY #30 tab 06/22/17 11/08/18 Rx nystatin-triamcinolone 100,000 1 applic TOPICAL TID #60 g 03/19/18 11/08/18 Rx unit/g-0.1 % topical cream hydrocortisone-pramoxine 2.5 %-1 % [address] TID PRN #30 g 05/01/18 11/08/18 Rx rectal cream acetaminophen 500 mg tablet 500 mg PO Q6H PRN 07/25/18 11/08/18 History escitalopram 20 mg tablet 20 mg PO QDAY #30 tab 07/25/18 11/08/18 Rx loperamide 2 mg capsule 4 mg PO .daily PRN cap 07/25/18 11/08/18 History benzocaine 20 % mucosal paste 1 applic MUCOUS MEMBRANE QID PRN 08/25/18 11/08/18 Rx #30 g Apixaban [Eliquis] 5 mg PO BID #60 tab 09/11/18 11/08/18 Rx folic acid 1 mg tablet 1 mg PO QDAY #1 tab 09/11/18 11/08/18 Clinic oxyCODONE IR Tab [OxyIR Tab] 1 tab PO Q6H PRN 10/23/18 11/08/18 History biotin 1,000 mcg chewable tablet 1,000 mcg PO QDAY 11/07/18 11/08/18 History ciprofloxacin 250 mg tablet 500 mg PO BID 11/07/18 11/08/18 History dexlansoprazole 60 mg 60 mg PO QDAY 11/07/18 11/08/18 History capsule,biphase delayed release fentanyl 25 mcg/hr transdermal 1 patch TRANSDERM Q72H 11/07/18 11/08/18 History patch hyoscyamine sulfate 0.125 mg tablet 0.125 mg PO QID PRN 11/07/18 11/08/18 History lactobacillus combination no.8 3 3,000 mmu cells PO QDAY 11/07/18 11/08/18 History billion cell capsule multivitamin tablet 1 tab PO QAM 11/07/18 11/08/18 History ondansetron 4 mg disintegrating 4 mg PO TID PRN 11/07/18 11/08/18 History tablet prednisone 20 mg tablet 15 mg PO QDAY tab 11/07/18 11/08/18 History trazodone 50 mg tablet 100 mg PO QHS tab 11/07/18 11/08/18 History Allergies/Adverse Reactions: Allergies Allergy/AdvReac Type Severity Reaction Status Date / Time adalimumab [From Humira] Allergy SHORTNESS Verified 11/08/18 03:43 OF BREATH ibuprofen [From Motrin IB] AdvReac Other : Verified 11/08/18 03:43 See Comment Results - Labs CBC and BMP: 11/08/18 04:20 11/08/18 04:20 - Imaging Status: Image Reviewed by Me (And discussed with the radiologist.), Report Reviewed by Me Exam - Vitals Vital Signs: Vital Signs Temperature 97.7 F Temperature Source Temporal Artery Scan Pulse Rate [Pulse Oximeter] 75 Pulse Rate 111 Respiratory Rate 12 Blood Pressure [Right Arm] 113/78 Blood Pressure [Left Arm] 113/78 Blood Pressure 114/90 Pulse Ox 94 Oxygen Flow Rate 3 Oxygen Delivery Method Oxymask Height 5 ft 5 in Weight 165 lb 4.8 oz - General General Appearance: Cooperative, Mild Distress - Eye Eye Exam: POSITIVE: No Scleral Icterus - Respiratory Respiratory Exam: POSITIVE: Clear to Auscultation - Bilaterally, Breathing Non Labored - Cardiovascular Cardiovascular Exam: POSITIVE: RRR, No Murmur - GI/Abdominal GI/Abdominal Exam: POSITIVE: Normal Bowel Sounds, Soft, Distended, Positive for RUQ Pain Additional GI/Abdominal Exam Details: Focal right upper quadrant tenderness with palpation. - Rectal Rectal Exam: POSITIVE: Deferred - Neurological Neurological Exam: POSITIVE: Alert, Oriented x 3 - Psychiatric Psychiatric Exam: POSITIVE: Normal Affect, Normal Mood Assessment and Plan - Patient Problems (1) Acute acalculous cholecystitis Current Visit: Yes Status: Acute Priority: High Comment: Discussed with the patient, Dr. Dawson, and the patient's father. Please see history of present illness. Safest is to proceed with laparoscopic versus open cholecystectomy in the near future. This gallbladder look significantly different than it did on 10/29/2018. Patient stopped the eliquis as of Monday. Will proceed with laparoscopic/open cholecystectomy on Monday am which will be 48 hours after the last dose of eliquis. The procedure has been discussed with the patient in complete yet simple terms including benefits, risks, and alternatives. All questions have been answered. Informed consent has been obtained. Code(s): K81.0 - Acute cholecystitis (2) Chronic ulcerative colitis not affecting current episode of care Current Visit: Yes Status: Acute Comment: No issues affecting this hospitalization except chronic steroid use. Dr. Dawson plans bolus dose steroid in the morning. Code(s): K51.90 - Ulcerative colitis, unspecified, without complications (3) Pneumonia Current Visit: Yes Status: Acute Comment: Ongoing treatment per Dr. Dawson. Code(s): J18.9 - Pneumonia, unspecified organism Qualifiers: (4) Pneumonia Current Visit: No Status: Acute Code(s): J18.9 - Pneumonia, unspecified organism Qualifiers: Pneumonia type: due to unspecified organism Laterality: right Lung location: upper lobe of lung Qualified Code(s): J18.1 - Lobar pneumonia, unspecified organism
--- NOTE | 2018-11-08 16:53 | PDOC ---
HPI - History of Present Illness Date of Service: 11/08/18 Time of Service: 16:50 Chief Complaint: nausea and vomiting History of Present Illness: This is a very pleasant 33 YO with ulcerative colitis s/p multiple surgeries including pouch construction, chronic pain, recent pneumonia with sepsis X 2, and a PE (possibly from prior PICC?), who came in the the ER after acute onset of nausea and vomiting that started at 1 AM, and she noted to me she at [facility] at [employer]. She notes that she had several bouts of nausea and vomiting. After her recent pneumonia and sepsis treatment in [place], the patient reported low, normal oxygen saturations on her discharge date there 11/04/18. She states she had no chest pain and no shortness of breath. Her friend, a nurse, noted the patient had had some hypoxic spells since discharge. The patient had also been switched from long acting morphine to fentanyl patch. She had no issues with her first patch, but did change it, as prescribed, last evening (every 72 hours). She reports she had abdominal pain and distension, and her pain was notably in the right upper quadrant. She felt a little worse heartburn. The patient also told me she had known gall bladder sludge in the past with her extractor operator. The patient apparently was at an oxygen saturation of 70% upon arrival to the ER and was described as lethargic, though the history of her present illness seems to have been noted in terms of nausea and vomiting and abdominal pain. She got a dose of narcan, 1 mg, and went into acute narcotic withdrawal and was upset because she did not feel that was her main issue. CT scans of the chest and abdomen showed improved infiltrate, though noted, with two small cavitary lesions, but the gall bladder also looked to have sludge and an inflamed gall bladder wall. The patient is very reluctant to take any pain medications now. She still feels nauseated and her abdominal pain is not much better. Past Medical History Medical History: 1. Chronic ulcerative colitis status post colectomy, ileostomy and reversal with pouch creation. Her disease also caused ulceration in her mouth and the small intestine she was tried on Humira but it didn't work she end up up with an infection. At one point in time they will try Stelara. Her GI specialist is Dr. Renner in [place]. 2. Pneumonia in 07/2018, and 10/2018. recent pneumonia complicated by sepsis. 3. History of Pouchitis on recently changed on antibiotics for metronidazole, but not sure the name of the new antibiotic.. 4. History of Swyer-Misael syndrome. 5. History of a pulmonary embolism, on Eliquis expected through January of this year, minimum Surgical History: 1. Breast augmentation. 2. Tonsillectomy and adenoidectomy. 3. Colon resection/pouch/etc. as noted above. Pertinent Family History: Parents are described as healthy. Her sister has pots syndrome Past Social History: Used to smoke doesn't drink no drugs. Has 1 tattoo. Not . No children. 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 Tobacco Use: Never Smoker In the Past 12 Months, Have Used or Abuse Any of the Following Substance: None Alcohol Use: None Medication / Allergies Home Medications: Home Medications Medication Instructions Recorded Confirmed Type Ferrous Gluconate 325 mg PO DAILY #30 tab 06/22/17 11/08/18 Rx nystatin-triamcinolone 100,000 1 applic TOPICAL TID #60 g 03/19/18 11/08/18 Rx unit/g-0.1 % topical cream hydrocortisone-pramoxine 2.5 %-1 % 1 applic DE TID PRN #30 g 05/01/18 11/08/18 Rx rectal cream acetaminophen 500 mg tablet 500 mg PO Q6H PRN 07/25/18 11/08/18 History escitalopram 20 mg tablet 20 mg PO QDAY #30 tab 07/25/18 11/08/18 Rx loperamide 2 mg capsule 4 mg PO .daily PRN cap 07/25/18 11/08/18 History benzocaine 20 % mucosal paste 1 applic MUCOUS MEMBRANE QID PRN 08/25/18 11/08/18 Rx #30 g Apixaban [Eliquis] 5 mg PO BID #60 tab 09/11/18 11/08/18 Rx folic acid 1 mg tablet 1 mg PO QDAY #1 tab 09/11/18 11/08/18 Clinic oxyCODONE IR Tab [OxyIR Tab] 1 tab PO Q6H PRN 10/23/18 11/08/18 History biotin 1,000 mcg chewable tablet 1,000 mcg PO QDAY 11/07/18 11/08/18 History ciprofloxacin 250 mg tablet 500 mg PO BID 11/07/18 11/08/18 History dexlansoprazole 60 mg 60 mg PO QDAY 11/07/18 11/08/18 History capsule,biphase delayed release fentanyl 25 mcg/hr transdermal 1 patch TRANSDERM Q72H 11/07/18 11/08/18 History patch hyoscyamine sulfate 0.125 mg tablet 0.125 mg PO QID PRN 11/07/18 11/08/18 History lactobacillus combination no.8 3 3,000 mmu cells PO QDAY 11/07/18 11/08/18 History billion cell capsule multivitamin tablet 1 tab PO QAM 11/07/18 11/08/18 History ondansetron 4 mg disintegrating 4 mg PO TID PRN 11/07/18 11/08/18 History tablet prednisone 20 mg tablet 15 mg PO QDAY tab 11/07/18 11/08/18 History trazodone 50 mg tablet 100 mg PO QHS tab 11/07/18 11/08/18 History Allergies/Adverse Reactions: Allergies Allergy/AdvReac Type Severity Reaction Status Date / Time adalimumab [From Humira] Allergy SHORTNESS Verified 11/08/18 03:43 OF BREATH ibuprofen [From Motrin IB] AdvReac Other : Verified 11/08/18 03:43 See Comment Review of Systems - Review of Systems All Systems: Reviewed & No Additional Complaints Except as Stated (I did a 12 point review of systems and it was negative except as per history of present illness and that noted below.) - Additonal Details Additional ROS Details: states her prednisone was cut back to 15 mg and the goal was to have it to 10 mg by 11/12/2018 Exam - Vitals Vital Signs: Vital Signs Temperature 97.7 F Temperature Source Temporal Artery Scan Pulse Rate [Pulse Oximeter] 75 Pulse Rate 111 Respiratory Rate 12 Blood Pressure [Right Arm] 113/78 Blood Pressure [Left Arm] 113/78 Blood Pressure 114/90 Pulse Ox 94 Oxygen Flow Rate 3 Oxygen Delivery Method Oxymask Height 5 ft 5 in Weight 165 lb 4.8 oz - General General Appearance: No Acute Distress, Cooperative - Head Head Exam: Normal Inspection, Normocephalic, Atraumatic Additional Head Exam Details: schneider face appearance consistent with steroid use. - Eye Eye Exam: POSITIVE: No Scleral Icterus - ENT ENT Exam: POSITIVE: Mucous Membranes Moist - Neck Neck Exam: JVP is not Raised - Respiratory Respiratory Exam: POSITIVE: Breathing Non Labored, Coarse Breath Sounds - Cardiovascular Cardiovascular Exam: POSITIVE: No Murmur, No Clicks, No Gallops, No Rubs, Tachycardia, No JVD - GI/Abdominal GI/Abdominal Exam: POSITIVE: Normal Bowel Sounds, Positive for RUQ Pain Additional GI/Abdominal Exam Details: not distended markedly, but tympanic, tender RUQ with palpation, grimace on exam - Rectal Rectal Exam: POSITIVE: Deferred - External Exam: POSITIVE: Deferred Exam: POSITIVE: Deferred - Extremities Extremities Exam: POSITIVE: No Clubbing Present, No Edema Present, No Cyanosis Present - Back Back Exam: POSITIVE: No CVA Tenderness - Neurological Neurological Exam: POSITIVE: Alert, Oriented x 3, No Facial Droop, Speech Intact / Clear, Moves All Extremities Equally - Psychiatric Psychiatric Exam: POSITIVE: Anxious Results - Labs CBC and BMP: 11/08/18 04:20 11/08/18 04:20 Additional Lab Results: Laboratory Results 11/08/18 11/08/18 11/08/18 04:20 04:20 04:20 WBC 17.13 H RBC 3.14 L Hgb 9.2 L Hct 29.2 L MCV 93.0 MCH 29.3 MCHC 31.5 L RDW Std Deviation 44.7 RDW Coeff of Dona 13.6 Plt Count 453 H MPV 8.3 Immature Gran % (Auto) 1.6 Neut % (Auto) 80.4 H Lymph % (Auto) 13.1 [place] % (Auto) 4.6 L Eos % (Auto) 0.1 Baso % (Auto) 0.2 Immature Gran # (Auto) 0.28 Neut # (Auto) 13.77 Lymph # (Auto) 2.24 [place] # (Auto) 0.79 Eos # (Auto) 0.02 Baso # (Auto) 0.03 WBC Morphology Comment Normal morphology Plt Morphology Comment Normal morphology RBC Morph Comment Normal morphology VBG pH VBG pCO2 VBG HCO3 VBG Base Excess Sodium 136 Potassium 4.5 Chloride 98 Carbon Dioxide 30 Anion Gap 8 BUN 25 H Creatinine 2.0 H Estimated GFR 29 BUN/Creatinine Ratio 12.50 Glucose 173 H Calculated Osmolality 289.0 Lactic Acid 2.1 Calcium 8.6 L Total Bilirubin 0.2 L AST 113 H ALT 118 H D Alkaline Phosphatase 104 Total Protein 5.4 L Albumin 3.0 L Globulin 2.4 L Albumin/Globulin Ratio 1.20 L 11/08/18 04:45 WBC RBC Hgb Hct MCV MCH MCHC RDW Std Deviation RDW Coeff of Dona Plt Count MPV Immature Gran % (Auto) Neut % (Auto) Lymph % (Auto) [place] % (Auto) Eos % (Auto) Baso % (Auto) Immature Gran # (Auto) Neut # (Auto) Lymph # (Auto) [place] # (Auto) Eos # (Auto) Baso # (Auto) WBC Morphology Comment Plt Morphology Comment RBC Morph Comment VBG pH 7.40 VBG pCO2 52 VBG HCO3 32 H VBG Base Excess 7 H Sodium Potassium Chloride Carbon Dioxide Anion Gap BUN Creatinine Estimated GFR BUN/Creatinine Ratio Glucose Calculated Osmolality Lactic Acid Calcium Total Bilirubin AST ALT Alkaline Phosphatase Total Protein Albumin Globulin Albumin/Globulin Ratio - Imaging Status: Image Reviewed by Me (on my view of CT of chest, mass looks smaller. I do note the small cavitary lesions. The patient has two small pleural e ffusions. I looked at the CT scan of the abdomen as well, radiologist felt there were findings suspicious for acute cholecystitis.) Assessment and Plan - Patient Problems (1) Acute renal failure (ARF) Current Visit: Yes Status: Acute Code(s): N17.9 - Acute kidney failure, unspecified Qualifiers: Acute renal failure type: unspecified Qualified Code(s): N17.9 - Acute kidney failure, unspecified (2) Acute cholecystitis Current Visit: Yes Status: Acute Code(s): K81.0 - Acute cholecystitis (3) Chronic steroid use Current Visit: Yes Status: Acute (4) Immunocompromised Current Visit: Yes Status: Acute Code(s): D84.9 - Immunodeficiency, unspecified (5) Chronic pain Current Visit: Yes Status: Acute Code(s): G89.29 - Other chronic pain Qualifiers: Chronic pain type: chronic pain syndrome Qualified Code(s): G89.4 - Chronic pain syndrome (6) Pneumonia Current Visit: No Status: Resolved Code(s): J18.9 - Pneumonia, unspecified organism Qualifiers: Pneumonia type: due to unspecified organism Laterality: right Lung location: upper lobe of lung Qualified Code(s): J18.1 - Lobar pneumonia, unspecified organism (7) Inflammatory bowel disease Current Visit: No Status: Acute Code(s): K52.9 - Noninfective gastroenteritis and colitis, unspecified - Assessment / Plan Additional Assessment/Plan Details: admit the patient IV fluids and antibiotics consult surgery I did discuss cavitary lesions and smaller nature of the infiltrate with Infectious Diseases--I think this is a treated pneumonia with an infiltrate within a too early of a time frame to completely resolve radiographically--the recommendation was to reimage in 6 weeks and cover for acute cholecystitis as we deemed appropriate. will stress dose if going to OR keep NPO antiemetics and pain medications will be written for. She is very reluctant to go on narcotics after her acute withdrawal in the ER. labs in AM plan above discussed with the patient and she agreed.
[2018-11-08] MEDS ORDERED: HYDROmorphone 2 MG/1 ML IVP PRN (18:22)
[2018-11-08 19:00] LABS: BUN/CREATININE RATIO 12.94 (6-20)
[2018-11-08] MEDS ORDERED: traZODone Tab 50 MG TAB PO SCH (21:00)
[2018-11-09] MEDS: metroNIDAZOLE 500mg (Premix) 500 MG/100 ML BAG IV SCH ×2 (00:11→11:54)
[2018-11-09 05:02] LABS: BASOPHILS # (AUTO) 0.02 10*3/UL; BASOPHILS % (AUTO) 0.2 % (0-1); EOSINOPHILS # (AUTO) 0.01 10*3/UL; EOSINOPHILS % (AUTO) 0.1 % (0-8); Hematocrit [HCT] 28.6 % (37.0-47.0); LYMPHOCYTES # (AUTO) 1.14 10*3/uL; MEAN CORPUSCULAR HGB CONC 31.5 g/dL (33-37); MEAN CORPUSCULAR VOLUME 92.3 FL (81-99); MEAN PLATELET VOLUME 8.6 FL (7.4-12.2); MONOCYTES # (AUTO) 0.73 10*3/UL (0.3-0.8); MONOCYTES % (AUTO) 5.5 % (5-15); NEUTROPHILS # (AUTO) 11.24 10*3/UL; NEUTROPHILS % (AUTO) 85.1 % (50-80)
[2018-11-09 05:22] LABS: SERUM ALBUMIN 3.1 g/dL (3.5-4.8)
[2018-11-09 05:54] LABS: PLATELET MORPHOLOGY COMMENT NORMAL MORPHOLOGY (NORM); RBC MORPHOLOGY COMMENT NORMAL MORPHOLOGY (NORM); WBC MORPHOLOGY COMMENT NORMAL MORPHOLOGY (NORM)
[2018-11-09] MEDS: Sodium Chloride 0.9% 1,000 ML PRIMARY IV SCH (06:52)
[2018-11-09] MEDS ORDERED: Iothalamate Meglumine 30 ML VIAL IV ONE (06:55)
[2018-11-09] MEDS ORDERED: Sodium Chloride 0.9% vial 50 ML ONE (06:55)
[2018-11-09] MEDS ORDERED: BUPIVACAINE 0.25% W/ EPI - 10 ML VIAL ONE (06:56)
[2018-11-09] MEDS: PANTOPRAZOLE 40 MG TABLET PO SCH ×2 (07:50→17:10)
[2018-11-09] MEDS ORDERED: PROPOFOL 10 MG/1 ML (200 MG/20 ML) VIAL IV ONE (07:53)
[2018-11-09] MEDS ORDERED: Lactated Ringers 1,000 ML PRIMARY IV SCH ×3 (08:00→13:33)
[2018-11-09] MEDS ORDERED: FOLIC ACID 1 MG TABLET PO SCH (09:00)
[2018-11-09] MEDS ORDERED: HYDROCORTISONE SOD SUCC IV ONE (09:00)
[2018-11-09] MEDS ORDERED: cefTRIAXone Inj 2 GM in Sodium Chloride 0.9% 100 ML IV SCH (09:00)
[2018-11-09] MEDS ORDERED: SODIUM CHLORIDE 0.9% IV ONE (09:00)
[2018-11-09] MEDS: ESCITALOPRAM 10 MG TABLET PO SCH (09:08)
[2018-11-09] MEDS: predniSONE Tab 10 MG TAB PO SCH (09:08)
[2018-11-09] MEDS: Multivitamin Tab 1 TAB PO SCH (09:08)
[2018-11-09] MEDS: ACIDOPHILUS/BULGARICUS CHEWABLE TABLET PO SCH (09:08)
[2018-11-09 09:27] LABS: URINE SPECIFIC GRAVITY - MAN 1.009
[2018-11-09] MEDS ORDERED: Ertapenem Inj 1 GM in Sodium Chloride 0.9% 100 ML IV SCH (09:30)
[2018-11-09] MEDS ORDERED: IPRATROPIUM/ALBUTEROL SULFATE 3 ML NEB NEB ONE ×2 (09:53→10:02)
--- NOTE | 2018-11-09 09:57 | PDOC(PROG) ---
Date of Service: 11/09/18 Time of Service: 09:53 Interval History: No chest pain or shortness of breath. Walking down to the OR now. She states to me that she had abdominal pain. Better controlled this morning. States she is ready for surgery. Objective : Data - Labs CBC and BMP: 11/09/18 04:15 11/09/18 04:15 Additional Lab Results: 11/09/18 11/09/18 04:15 09:22 Calcium 8.9 Total Bilirubin 0.3 AST 65 H ALT 119 H Alkaline Phosphatase 119 Total Protein 5.5 L Albumin 3.1 L U Specif Grav (Refrac) 1.009 Urine HCG, Qual Negative Objective : Exam - General General Appearance: No Acute Distress, Cooperative Additional General Exam Details: Vital Signs - Last Taken Temperature 97.3 F 11/09/18 08:27 Pulse Rate 56 L 11/09/18 08:27 Respiratory Rate 20 11/09/18 08:27 Blood Pressure 131/84 11/09/18 08:27 Pulse Ox 93 11/09/18 08:27 - Eye Eye Exam: No Scleral Icterus - ENT ENT Exam: Mucous Membranes Moist - Neck Neck Exam: JVP is not Raised - Respiratory Respiratory Exam: Breathing Non Labored, Decreased Breath Sounds (But improving) - Cardiovascular Cardiovascular Exam: RRR, No Murmur, No Clicks, No Gallops, No Rubs, No JVD - GI/Abdominal GI/Abdominal Exam: Normal Bowel Sounds, Non Tender (Not as much tenderness today on exam.) - Extremities Extremities Exam: No Clubbing Present, No Edema Present, No Cyanosis Present - Neurological Neurological Exam: Alert, Oriented x 3, Normal Gait, No Facial Droop, Speech Intact / Clear, Moves All Extremities Equally - Psychiatric Psychiatric Exam: Normal Affect, Normal Mood Assessment and Plan - Patient Problems (1) Acute renal failure (ARF) Current Visit: Yes Status: Acute Code(s): N17.9 - Acute kidney failure, unspecified Qualifiers: Acute renal failure type: unspecified Qualified Code(s): N17.9 - Acute kidney failure, unspecified (2) Acute cholecystitis Current Visit: Yes Status: Acute Code(s): K81.0 - Acute cholecystitis (3) Chronic steroid use Current Visit: Yes Status: Acute (4) Immunocompromised Current Visit: Yes Status: Acute Code(s): D84.9 - Immunodeficiency, unspecified (5) Chronic pain Current Visit: Yes Status: Acute Code(s): G89.29 - Other chronic pain Qualifiers: Chronic pain type: chronic pain syndrome Qualified Code(s): G89.4 - Chronic pain syndrome (6) Inflammatory bowel disease Current Visit: No Status: Acute Code(s): K52.9 - Noninfective gastroenteritis and colitis, unspecified - Assessment / Plan Additional Assessment/Plan Details: Getting stress dose of hydrocortisone now. Hypoxia persists, but oxygen requirement down to about 2-1/2 L. I think this is still residual from nausea and vomiting yesterday, probable microaspiration, recent pneumonia with resolving infiltrate. Pain medications may also be playing a role in this. We will get labs in a.m. Continue antibiotics for now, hopefully will be able to stop postoperatively. Reassuring to see that white blood cell count has decreased. Pain medications and antiemetics. Continue IV fluids. Creatinine is better.
[2018-11-09] MEDS ORDERED: ERTAPENEM 1 GM VIAL ONE (10:00)
[2018-11-09] MEDS ORDERED: Sodium Chloride 0.9% 100 ML IV ONE (10:02)
[2018-11-09] MEDS ORDERED: ONDANSETRON 4 MG/2 ML VIAL ONE (10:14)
[2018-11-09] MEDS ORDERED: fentaNYL Inj 100 MCG/2 ML VIAL ONE (10:14)
[2018-11-09] MEDS ORDERED: ROCURONIUM 10 MG/1 ML - 5 ML VIAL IVP ONE (10:15)
[2018-11-09] MEDS ORDERED: SUCCINYLCHOLINE CHLORIDE 20 MG/1 ML - 10 ML ONE (10:16)
[2018-11-09] MEDS ORDERED: KETAMINE HCL 100 MG/2 ML SYRINGE IV ONE (10:16)
[2018-11-09] MEDS ORDERED: HYDROmorphone 2 MG/1 ML ONE (12:13)
[2018-11-09] MEDS: HYDROmorphone 2 MG/1 ML IVP PRN ×7 (12:15→19:58)
[2018-11-09] MEDS ORDERED: ONDANSETRON 4 MG/2 ML VIAL IVP PRN ×2 (12:19→13:33)
[2018-11-09] MEDS ORDERED: LIDOCAINE W/ SODIUM BICARB 0.5 ML SYR SUBD PRN (12:19)
--- NOTE | 2018-11-09 12:19 | CRNA.PROGR ---
Anesthesia Time - Procedure/Recovery Time Start Date: 11/09/18 End Date: 11/09/18 Anesthesia : Time In: 10:39 Anesthesia : Time Out: 12:12 Anesthesia : Total Time: 93 - Total Anesthesia Time Total Anesthesia Time (minutes): 93 - Other Weight: 72.847 kg Height: 5 ft 5 in Body Mass Index (BMI): 26.7 Anesthesia Type: General Anesthesia : ET (stable, extubated to PACU)
--- NOTE | 2018-11-09 12:21 | CRNA.PROGR ---
Anesthesia Recovery Phase I - Post Anesthesia Evaluation Patient's Condition on Arrival in Phase I: Stable Patient's Condition on Arrival in Phase II: Stable (pain at baseline, stable at patient D/C to floor)
--- NOTE | 2018-11-09 12:23 | CRNA.PROGR ---
Anesthesia Note - Progress Notes Anesthesia Progress Note: to floor stable, no apparent anesthesia realated complications, follow up at patient/surgeon request
--- NOTE | 2018-11-09 12:38 | GEN.OPNOTE ---
Operative Note Surgery Date: 11/09/18 Preoperative Diagnosis: Acalculous cholecystitis. Postoperative Diagnosis: Acalculous cholecystitis. Procedure: Laparoscopic cholecystectomy with intraoperative cholangiogram. Surgeon: Hermann Richardson MD Superintendent Cemetery: Adin Carballo MD Anesthesia Provider: Delano Sullivan MD Anesthesia Type: General Estimated Blood Loss (mL): 5 Fluids: 900 mL of crystalloid. 1 g of IV Invanz at the start of the procedure. Pathology: Specimen to pathology. Indications: Patient presented with abdominal pain as well as nausea and vomiting. Patient had a CT scan of her abdomen on 10/29/2018. The gallbladder looked normal. She had a CT scan on 11/08/2018 which shows a thick-walled gallbladder bladder with intra-abdominal fluid. Ultrasound shows a thick-walled gallbladder with pericholecystic fluid. White count is elevated. She had new elevations of AST and ALT. Her alkaline phosphatase and bilirubin were normal. She has a history of sludge in her gallbladder. She's been told in the past she needs her gallbladder removed. She was taken to the operating room for cholecystectomy. Findings: Free intraperitoneal fluid. Gallbladder with edema in the wall. No other intra-abdominal pathology. Intraoperative cholangiogram shows a normal sized duct with free flow into the duodenum. There was a normal distal tapering. There is a normal branching pattern. There are no filling defects in the common bile duct. Complications: None. Operative Summary: The patient was taken to the operating room and placed on the operating table in the supine position. Following induction of general anesthetic the abdomen was prepped and draped in a sterile fashion. A surgical timeout was done. The infraumbilical region was infiltrated with 1/4% Marcaine with epinephrine. An incision was made. The abdominal wall was elevated. An open cut down technique was used to place a Brennan cannula. A Pneumoperitoneum Was Induced. A Laparoscope Was Inserted. Under Direct visualization and following Marcaine injection a 10 mm trocar was placed in the epigastrium and 2x5 mm trochars were placed along the costal margin. The gallbladder was grasped and elevated. The intraperitoneal fluid was removed. It was slightly karma and clear. Blunt dissection was used to free the cystic duct. A clip was placed along the neck of the gallbladder. A hole was made in the side wall of the cystic duct. A [place] cholangiocatheter was inserted. Intraoperative cholangiogram was taken and was normal as previously dictated. The [place] catheter was withdrawn. 2 clips were placed on the distal cystic duct and the duct was divided. The cystic artery was isolated. 2 clips were placed proximally and one distally and the artery was divided. The gallbladder was taken from the hepatic bed using electrocautery. Hemostasis was assured. Appropriate irrigation and suctioning were performed. Final check for hemostasis was made. 5 mL of Marcaine was placed in the gallbladder fossa and 5 over the dome of the liver. The laparoscope was moved to the epigastric port. The gallbladder was grasped with a large grasper and brought up to the umbilical trocar site. The gallbladder was brought out through the trocar site without difficulty. The fascial defect at the umbilicus was closed with [id number] sutures of 0 Vicryl. A final check for hemostasis was made. The CO2 was burped from the abdominal cavity. The trochars were removed under direct visualization. The epigastric trocar site was closed with a simple stitch of 0 Vicryl. The skin wounds were closed with inverted interrupted or running subcuticular 4-0 Monocryl followed by Mastisol Steri-Strips and an appropriate dressing. Patient tolerated the procedure well without complication. Patient was taken to the recovery room in stable condition. All counts were correct. Procedure Codes - Surgical Procedures Primary Surgical Procedure: 55767 : Cholecsytectomy w/Cholangiograph
[2018-11-09] MEDS: fentaNYL Inj 100 MCG/2 ML VIAL IVP PRN ×2 (12:55→13:08)
--- NOTE | 2018-11-09 12:55 | DI ---
OPERATIVE CHOLANGIOGRAM, 11/09/2018 11:00 AM : Clinical History: Abdominal pain. Biliary dyskinesia. Views: 8 with contrast present on all films. Reflux: Reflux into the duodenum. Stones: No retained stone in common duct. Bile Ducts: Normal visualized portions of intrahepatic biliary tree. Reading: Normal operative cholangiogram.
[2018-11-09] MEDS ORDERED: oxyCODONE-ACETAMINOPHEN 5-325 TAB PO PRN (13:33)
[2018-11-09] MEDS ORDERED: Acetaminophen 1000mg Inj 1,000 MG/100 ML VIAL IV PRN (13:33)
[2018-11-09] MEDS ORDERED: Loperamide Tab 2 MG TABLET PO PRN (13:33)
[2018-11-09] MEDS: oxyCODONE-ACETAMINOPHEN 5-325 TAB PO PRN ×2 (17:10→21:06)
[2018-11-09] MEDS ORDERED: traZODone Tab 50 MG TAB PO SCH (21:00)
[2018-11-09] MEDS: Apixaban Tab 2.5 MG TABLET PO SCH (21:06)
[2018-11-10] MEDS: HYDROmorphone 2 MG/1 ML IVP PRN (01:05)
[2018-11-10] MEDS: oxyCODONE-ACETAMINOPHEN 5-325 TAB PO PRN ×3 (02:04→10:57)
[2018-11-10 04:52] LABS: BASOPHILS # (AUTO) 0.01 10*3/UL; BASOPHILS % (AUTO) 0.1 % (0-1); EOSINOPHILS # (AUTO) 0 10*3/UL; EOSINOPHILS % (AUTO) 0 % (0-8); Hematocrit [HCT] 28.5 % (37.0-47.0); Hemoglobin [HGB] 9.1 g/dL (12.0-16.0); LYMPHOCYTES # (AUTO) 1.26 10*3/uL; MEAN CORPUSCULAR HEMOGLOBIN 29.1 PG (27-31); MEAN CORPUSCULAR HGB CONC 31.9 g/dL (33-37); MEAN CORPUSCULAR VOLUME 91.1 FL (81-99); MEAN PLATELET VOLUME 8.2 FL (7.4-12.2); MONOCYTES # (AUTO) 0.83 10*3/UL (0.3-0.8); NEUTROPHILS # (AUTO) 11.67 10*3/UL; NEUTROPHILS % (AUTO) 84.5 % (50-80); RED BLOOD COUNT 3.13 10^6/uL (4.20-5.40)
[2018-11-10 05:02] LABS: BUN/CREATININE RATIO 14.61 (6-20); SERUM ALBUMIN 2.9 g/dL (3.5-4.8)
[2018-11-10 05:08] LABS: PLATELET MORPHOLOGY COMMENT NORMAL MORPHOLOGY (NORM); RBC MORPHOLOGY COMMENT NORMAL MORPHOLOGY (NORM); WBC MORPHOLOGY COMMENT NORMAL MORPHOLOGY (NORM)
[2018-11-10] MEDS: PANTOPRAZOLE 40 MG TABLET PO SCH (07:10)
[2018-11-10 07:46] VITALS: RESP 18
[2018-11-10] MEDS: Apixaban Tab 2.5 MG TABLET PO SCH (08:26)
[2018-11-10] MEDS ORDERED: CIPROFLOXACIN PO SCH ×2 (09:00)
[2018-11-10] MEDS ORDERED: ESCITALOPRAM 10 MG TABLET PO SCH (09:00)
[2018-11-10] MEDS ORDERED: ACIDOPHILUS/BULGARICUS CHEWABLE TABLET PO SCH (09:00)
[2018-11-10] MEDS ORDERED: Multivitamin Tab 1 TAB PO SCH (09:00)
[2018-11-10] MEDS ORDERED: predniSONE Tab 10 MG TAB PO SCH (09:00)
[2018-11-10] MEDS ORDERED: FOLIC ACID 1 MG TABLET PO SCH (09:00)
--- NOTE | 2018-11-10 12:49 | DCSUMMARY ---
Hospitalization Summary Admit Date: 11/08/2018 Discharge Date: 11/10/18 Primary Diagnosis:: acute cholecystitis, resolving pneumonia Hospital Course: This very pleasant 33-year-old female who has had an extensive course since August 2018 with pneumonia, DVT/pulmonary emboli felt to be related to a PICC line, another recurrent pneumonia with sepsis, who then presented on 11/08/2018 with nausea and vomiting and abdominal pain and was found to have acute cholecystitis. In terms of her acute cholecystitis, she is post on her buttocks, surgical consult was obtained, the patient had a cholecystectomy yesterday. Today, she is passing gas. Her abdomen is less bloated and overall less tender, and she is able to tolerate by mouth intake. Her incisions are dressed and there does not appear to be any sign of bleeding. The patient had an intraoperative cholangiogram that was negative. The patient's liver enzymes did come down only marginally overnight. It is still not clear why they are elevated but this could be multifactorial, medication related, hypoxia related, and otherwise. The liver looked normal on ultrasound. I think this needs to be repeated in about a week in terms of comprehensive metabolic panel for further evaluation. She had no evidence of flare of her inflammatory bowel disease here. Patient had recently been started on fentanyl patches. Those were discontinued. She was given a milligram of Narcan in the emergency room, went into acute narcotic withdrawal, that is now resolved. She did not show any evidence of narcotic abuse here, and a nodular pain was better today post cholecystectomy and did not ask for any long-term pain medications. Patient is still mildly hypoxic, she did have small effusions on her chest CT scan, but too small to pursue with thoracentesis, which could be reactive in the setting of recent pneumonia. I think she has some components of fluid overload, and we will diurese her with Lasix and add potassium while on Lasix therapy. The infiltrate did show small to cavitary lesions in the right upper lobe, but the infiltrate is significantly smaller than it was on initial admission 10/29/2018 from her pneumonia with sepsis. There is some debate as to whether the patient has underlying Crohn's disease or ulcerative colitis. Her initial presentation was quite consistent with, along with the pathology, with ulcerative colitis. 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 Today, no completes of chest pain, shortness breath, nausea or vomiting, or cough. Abdominal pain is improved. Less bloating. Assessment and Plan: 1. As per discharge assessments noted 2. Disposition: Patient is discharged home. 3. Condition on discharge, stable and improved. 4. Diet: regular diet 5. Activities: As per surgery restrictions currently 6. Follow-Up: 1. Dr. Finnegan one week 2. Dr. Solano in about 3 weeks 3. Continue with GI follow-up as well 4. Will be seeing Dr. Mackey in follow-up 7. Medications at the Time of Discharge: Home Medications Medication Instructions Recorded Confirmed Type Ferrous Gluconate 325 mg PO DAILY #30 tab 06/22/17 11/08/18 Rx nystatin-triamcinolone 100,000 1 applic TOPICAL TID #60 g 03/19/18 11/08/18 Rx unit/g-0.1 % topical cream hydrocortisone-pramoxine 2.5 %-1 % 1 applic [place] TID PRN #30 g 05/01/18 11/08/18 Rx rectal cream acetaminophen 500 mg tablet 500 mg PO Q6H PRN 07/25/18 11/08/18 History escitalopram 20 mg tablet 20 mg PO QDAY #30 tab 07/25/18 11/08/18 Rx loperamide 2 mg capsule 4 mg PO .daily PRN cap 07/25/18 11/08/18 History benzocaine 20 % mucosal paste 1 applic MUCOUS MEMBRANE QID PRN 08/25/18 11/08/18 Rx #30 g folic acid 1 mg tablet 1 mg PO QDAY #1 tab 09/11/18 11/08/18 Clinic oxyCODONE IR Tab [OxyIR Tab] 1 tab PO Q6H PRN 10/23/18 11/08/18 History biotin 1,000 mcg chewable tablet 1,000 mcg PO QDAY 11/07/18 11/08/18 History ciprofloxacin 250 mg tablet 500 mg PO BID 11/07/18 11/08/18 History dexlansoprazole 60 mg 60 mg PO QDAY 11/07/18 11/08/18 History capsule,biphase delayed release hyoscyamine sulfate 0.125 mg tablet 0.125 mg PO QID PRN 11/07/18 11/08/18 History lactobacillus combination no.8 3 3,000 mmu cells PO QDAY 11/07/18 11/08/18 History billion cell capsule multivitamin tablet 1 tab PO QAM 11/07/18 11/08/18 History ondansetron 4 mg disintegrating 4 mg PO TID PRN 11/07/18 11/08/18 History tablet trazodone 50 mg tablet 100 mg PO QHS tab 11/07/18 11/08/18 History Apixaban [Eliquis] 5 mg PO BID #60 tab 11/10/18 11/08/18 Rx Furosemide [Lasix] 40 mg PO DAILY #7 tab 11/10/18 Rx Potassium Chloride [Klor-Con M20] 20 meq PO DAILY #7 tab.er.prt 11/10/18 Rx predniSONE Tab [Deltasone Tab] 10 mg PO DAILY tab 11/10/18 Rx 8. Time, care, counseling and coordination of care for this discharge is greater than 30 minutes. Exam - Vitals Vital Signs: Vital Signs Temperature 97.2 F Temperature Source Temporal Artery Scan Pulse Rate [Apical] 62 Pulse Rate [Pulse Oximeter] 75 Pulse Rate 62 Respiratory Rate 18 Blood Pressure [Right Arm] 116/77 Blood Pressure [Left Arm] 122/79 Blood Pressure 133/89 Pulse Ox 94 Oxygen Flow Rate 2.5 Oxygen Delivery Method Nasal Cannula Height 5 ft 5 in Weight 160 lb 8 oz - General General Appearance: No Acute Distress, Cooperative - Head Head Exam: Normal Inspection, Normocephalic, Atraumatic - Eye Eye Exam: POSITIVE: No Scleral Icterus - ENT ENT Exam: POSITIVE: Mucous Membranes Moist - Neck Neck Exam: JVP is not Raised - Respiratory Respiratory Exam: POSITIVE: Clear to Auscultation - Bilaterally, Breathing Non Labored Additional Respiratory Exam Details: I felt that the breath sounds in the bases bilaterally were improved today - Cardiovascular Cardiovascular Exam: POSITIVE: RRR, No Murmur, No Clicks, No Gallops, No Rubs, No JVD - GI/Abdominal GI/Abdominal Exam: POSITIVE: Normal Bowel Sounds, Non Tender, Non Distended, Soft Additional GI/Abdominal Exam Details: Keloid scars noted from prior surgeries. Incisions from gallbladder dressed, dressing clean and dry and intact Some tenderness with palpation but much better than yesterday and the day before. - Extremities Extremities Exam: POSITIVE: No Clubbing Present, No Cyanosis Present, +1 Edema (She is trace lower extremity edema bilaterally) - Neurological Neurological Exam: POSITIVE: Alert, Oriented x 3, No Facial Droop, Speech Intact / Clear, Moves All Extremities Equally - Psychiatric Psychiatric Exam: POSITIVE: Normal Affect, Normal Mood Data Peritnent Studies: 11/08/18 11/09/18 11/10/18 04:45 09:22 04:45 WBC 13.81 H Hgb 9.1 L Hct 28.5 L Plt Count 531 H Neut % (Auto) 84.5 H VBG pH 7.40 VBG pCO2 52 VBG HCO3 32 H VBG Base Excess 7 H Sodium Potassium Chloride Carbon Dioxide Anion Gap BUN Creatinine Estimated GFR BUN/Creatinine Ratio Glucose Calculated Osmolality Calcium Total Bilirubin AST ALT Alkaline Phosphatase Total Protein Albumin Globulin Albumin/Globulin Ratio Lipase U Specif Grav (Refrac) 1.009 Urine HCG, Qual Negative 11/10/18 11/10/18 04:45 05:00 WBC Hgb Hct Plt Count Neut % (Auto) VBG pH VBG pCO2 VBG HCO3 VBG Base Excess Sodium 138 Potassium 3.9 Chloride 101 Carbon Dioxide 32 Anion Gap 5 BUN 19 Creatinine 1.3 H Estimated GFR 47 BUN/Creatinine Ratio 14.61 Glucose 148 H Calculated Osmolality 290.0 Calcium 8.9 Total Bilirubin 0.2 L AST 48 H ALT 109 H Alkaline Phosphatase 111 Total Protein 5.2 L Albumin 2.9 L Globulin 2.3 L Albumin/Globulin Ratio 1.20 L Lipase < 10 L U Specif Grav (Refrac) Urine HCG, Qual Procedures: [address] [facility] [place] [id number] PH: DD: [phone] FAX: [phone] ~DIAGNOSTIC IMAGING REPORT~ Patient: Lisa Hwang : 1985 Sex: F Age: 33 Exam Name: US Abdomen Limited Exam Date: 11/08/18 Report # : [id number] CPT Code: 44624 EMR/MR #: [id number] Ordering: Jason Jose Admiting: STEPAN MOTA DO Primary: Josh iFnnegan MD. Attending: STEPAN MOTA DO Signed US Abdomen Limited,11/08/2018 6:46 AM: Clinical History: Nausea. Previous Exam: None at this facility. Findings: Multiple grayscale and color Doppler sonographic images are obtained through the right upper quadrant, and demonstrate normal hepatic parenchyma. Visualized portions of the pancreas are unremarkable. There is thickening of the gallbladder wall which measures 9 mm. Negative sonographic Lucia's sign is obtained. The common bile duct measures 6 mm. The right kidney measures 10.7 cm in length without hydronephrosis nor nephrolithiasis. Visualized portions of the aorta and inferior vena cava are unremarkable. Impression: Thickened gallbladder wall measuring 9 mm in thickness without a definite sonographic Lucia's sign. This is an abnormal appearance of the gallbladder and is still worrisome for acute cholecystitis. Recommend surgical consultation. Dictated By: 11/08/18 0754 ISAC MACKEY MD. Signed By: 11/08/18 0801 ISAC MACKEY MD. [address] [facility] [place] [address] PH: DD: [phone] FAX: [phone] ~DIAGNOSTIC IMAGING REPORT~ Patient: Lisa Hwang : 1985 Sex: F Age: 33 Exam Name: XR CXR 1VW Exam Date: 11/08/18 Report # : [id number] CPT Code: 93514 EMR/MR #: [id number] Ordering: Jason Jose Admiting: STEPAN MOTA DO Primary: Josh Finnegan MD. Attending: STEPAN MOTA DO Signed XR CXR 1VW,11/08/2018 4:41 AM: Clinical History: Hypoxia Previous Exam: October 30, 2018 Findings: A single frontal radiograph of the chest is obtained, and demonstrate some res idual airspace disease within the right midlung field. Overlying EKG leads are seen. The cardiomediastinum is unremarkable. Overlying EKG leads are seen. Impression: Improvement of airspace disease within the right midlung field with some mild persisting airspace disease. Recommend followup imaging after treatment to document resolution. Dictated By: 11/08/18 0752 ISAC MACKEY MD. Signed By: 11/08/18 0759 ISAC MACKEY MD. [address] [facility] [place] [address] PH: DD: [phone] FAX: [phone] ~DIAGNOSTIC IMAGING REPORT~ Patient: Lisa Hwang : 1985 Sex: F Age: 33 Exam Name: CT Abdomen/Pelvis WO Contrast Exam Date: 11/08/18 Report # : [id number] CPT Code: 56789 EMR/MR #: [id number] Ordering: Jason Jose Admiting: Primary: Josh Finnegan MD. Attending: Signed EXAM: CT Abdomen and Pelvis Without Intravenous Contrast CLINICAL HISTORY: Hypotension, fullness of abdomen, nausea, vomit. TECHNIQUE: Axial computed tomography images of the abdomen and pelvis without intravenous contrast. Coronal and sagittal reformatted images were created and reviewed. COMPARISON: CT dated 10/29/2018. FINDINGS: ABDOMEN: Liver: Hepatomegaly with periportal edema, nonspecific. Liver measures 22.7 in craniocaudal dimension. Gallbladder and bile ducts: Heterogeneous gallbladder with suspected sludge, wall thickening and pericholecystic fluid. No significant biliary dilation. Pancreas: Unremarkable. No ductal dilation. No adjacent inflammatory changes. Spleen: Unremarkable. No splenomegaly. Adrenals: Unremarkable. No mass. Kidneys and ureters: Unremarkable. No obstructing calculi. No hydronephrosis. Stomach and bowel: Stable postsurgical changes of rectum and possible colectomy. No evidence of bowel obstruction or free air. PELVIS: Appendix: Appendix not visualized and is likely surgically absent. Bladder: Unremarkable. No calculi or wall thickening. Reproductive: Unremarkable as visualized. ABDOMEN and PELVIS: Intraperitoneal space: Small scattered ascites, new. No free air. Bones/joints: No acute fracture. No dislocation. Soft tissues: Small fat-containing umbilical hernia with density surrounding umbilicus. Vasculature: Unremarkable. No abdominal aortic aneurysm. Lymph nodes: Unremarkable. No enlarged lymph nodes. IMPRESSION: 1. Heterogeneous gallbladder with suspected wall thickening and pericholecystic fluid. Acute cholecystitis is not excluded. Recommend right upper quadrant ultrasound to further assess. 2. Small fat-containing umbilical hernia with density surrounding umbilicus. Correlate for associated symptoms. 3. Hepatomegaly with periportal edema, nonspecific. 4. Small scattered ascites, new compared to prior CT. 5. Postsurgical changes of rectum. No evidence of bowel obstruction or free air. Dictated By: Rebecca Noland MD Signed By: 11/08/18 0630 Rebecca Noland MD [address] [facility] [place] [id number] PH: DD: [phone] FAX: [phone] ~DIAGNOSTIC IMAGING REPORT~ Patient: Lisa Hwang : 1985 Sex: F Age: 33 Exam Name: CT Chest WO Contrast Exam Date: 11/08/18 Report # : [id number] CPT Code: 71023 EMR/MR #: [id number] Ordering: Jason Jose Admiting: Primary: Josh Finnegan MD. Attending: ----- Signed EXAM: CT Chest Without Intravenous Contrast CLINICAL HISTORY: Hypotension and hypoxia. TECHNIQUE: Axial computed tomography images of the chest without intravenous contrast. Coronal and sagittal reformations provided. COMPARISON: CT dated 10/29/2018. FINDINGS: Lungs: Residual opacity in right upper lobe with improvement although there are 2 small areas of cavitation within opacity which are new compared to prior CT. Stable cystic changes in the left lung. Opacity at left medial lung base which may represent atelectasis. Pleural space: Small pleural effusions. No pneumothorax. Heart: Cardiac size within normal limits. No pericardial effusion. Bones/joints: Unremarkable. No acute fracture. No dislocation. Soft tissues: Breast implants. Vasculature: Unremarkable. No thoracic aortic aneurysm. Lymph nodes: No significant lymphadenopathy. IMPRESSION: 1. Residual opacity in right upper lobe with improvement although there are 2 small areas of cavitation within opacity which are new compared to prior CT. Findings are compatible with pneumonia with cavitation. Recommend follow-up following treatment to ensure resolution. 2. Opacity at left medial lung base which may represent atelectasis although infiltrate not excluded. 3. Stable cystic changes in the left lung. Recommend attention on follow-up imaging. 4. Small pleural effusions. Dictated By: Rebecca Noland MD Signed By: 11/08/18 0635 Rebecca Noland MD Patient Problems - Patient Problem List (1) Acute cholecystitis Current Visit: Yes Status: Acute Code(s): K81.0 - Acute cholecystitis Category: Medical (2) Chronic steroid use Current Visit: Yes Status: Acute Category: Medical (3) Immunocompromised Current Visit: Yes Status: Acute Comment: Stress dose of steroids was given. Blood pressures been maintaining post surgery and I think we can start working on reducing the patient's daily steroid amount Code(s): D84.9 - Immunodeficiency, unspecified Category: Medical (4) Chronic pain Current Visit: Yes Status: Acute Code(s): G89.29 - Other chronic pain Qualifiers: Chronic pain type: chronic pain syndrome Qualified Code(s): G89.4 - Chronic pain syndrome Category: Medical (5) Inflammatory bowel disease Current Visit: Yes Status: Acute Code(s): K52.9 - Noninfective gastroenteritis and colitis, unspecified Category: Medical (6) Acute renal failure (ARF) Current Visit: Yes Status: Acute Comment: Improving. Creatinine to 1.3. The delta has decreased daily. Code(s): N17.9 - Acute kidney failure, unspecified Qualifiers: Acute renal failure type: unspecified Qualified Code(s): N17.9 - Acute kidney failure, unspecified Category: Medical (7) Pneumonia Current Visit: Yes Status: Acute Comment: Hypoxia persistent. Effusions too small to do thoracentesis with. Recheck chest x-ray in 3 weeks. However, hypoxia has improved significantly in the hospital. Code(s): J18.9 - Pneumonia, unspecified organism Qualifiers: Pneumonia type: due to unspecified organism Laterality: right Lung location: upper lobe of lung Qualified Code(s): J18.1 - Lobar pneumonia, unspecified organism Category: Medical
[2018-11-10 13:09] VITALS: BP 116/67; TEMP 97.6; O2SAT 92
--- NOTE | 2018-11-10 13:53 | PDOC(PROG) ---
Subjective Post Op Day: 1 Pain Management: PO Saldivar Catheter: No Flatus: Yes Diet: Regular Ambulating: Yes Date of Service: 11/10/18 Time of Service: 13:50 Interval History: Overall doing well. Reports she feels better than preop. Less abdominal distention and pain. Tolerating a diet. Passing gas. Has had bowel movements. She is ambulating. She is voiding. She is comfortable. Objective : Data - Labs CBC and BMP: 11/10/18 04:45 11/10/18 04:45 - Vital Signs Vital Signs and I&O: Vital Signs - Last Taken Temperature 97.6 F 11/10/18 13:00 Pulse Rate 67 11/10/18 13:00 Respiratory Rate 18 11/10/18 13:00 Blood Pressure 116/67 11/10/18 13:00 Pulse Ox 92 11/10/18 13:00 Intake and Output (24hr x 4 totals) 11/08/18 11/09/18 11/10/18 11/11/18 05:59 05:59 05:59 05:59 Intake Total 100 / 100 1743 / 1743 1200 / 1200 240 / 240 Output Total 1000 / 1000 750 / 750 300 / 300 Balance 100 / 100 743 / 743 450 / 450 -60 / -60 Objective : Exam - General General Appearance: No Acute Distress, Cooperative - GI/Abdominal GI/Abdominal Exam: Soft, Distended (Distended but less so.), Hypoactive Bowel Sounds, Positive for RUQ Pain (Still some right upper quadrant tenderness but less so. Seems more incisional.) Additional GI/Abdominal Exam Details: Dressings are clean, dry, and intact. Small spots under each dressing. - Neurological Neurological Exam: Oriented x 3 - Psychiatric Psychiatric Exam: Normal Affect, Normal Mood Assessment and Plan - Patient Problems (1) Status post laparoscopic cholecystectomy Current Visit: Yes Status: Acute Priority: Medium Onset Date: 11/09/18 Comment: Doing well postop. From a surgical perspective ready to be discharged home. Instructions were given to the patient. Follow-up in 10-14 days. Code(s): Z90.49 - Acquired absence of other specified parts of digestive tract
== END 2018-11-10 14:30 | disposition home or self-care (01) | DRG 417 ==
LOC: ER 03:38 → MED/SURG 07:47 → OPS 11-09 09:46 → MED/SURG 11-09 13:14
PROVIDERS: ADMIT Family Medicine; ATTEND Family Medicine